=== PATIENT | female | born 1970 | race Caucasian/White ===

== ENCOUNTER 2017-04-18 03:53 | Emergency (ER) | payer MEDICARE, OTHER ==
[~2017-04-18] VITALS: Ht 162.6 cm; Wt 110.2 kg
[~2017-04-18 03:53] MED LIST: ALPRAZOLAM1 MG PO; AMBIEN10 MG PO; AMPICILLIN SOD500 MG PO; ATIVAN1 MG; ATIVAN1 MG PO; AZITHROMYCIN250 MG PO; BACTRIM DS TAB1 EACH; CIPRO500 MG PO; CITALOPRAM HBR20 MG PO; CITALOPRAM HBR40 MG PO; CYMBALTA30 MG PO; DETROL LA4 MG PO; DIFLUCAN200 MG PO; DILAUDID2 MG PO; DILAUDID4 MG PO; DOXYCYCLINE HY100 MG PO; DSS100 MG PO; ESTRACE1 MG PO; ESTROVEN 155 M155 MG PO; FENTANYL1 EAC2 TD; FLAGYL500 MG PO; FLUCONAZOLE100 MG PO; GABAPENTIN300 MG PO; GUAIFENESIN-CO118 ML PO; HAIR SKIN NAIL1 EACH PO; IRON236 MG PO; KEFLEX500 MG PO; LAXATIVE5 M1 PO; LEVAQUIN500 MG PO; LEVOTHROID25 MCG PO; LEVOTHYROXINE25 MCG PO; LOMOTIL TABLET1 EACH PO; MACROBID 100 M100 MG PO; METOCLOPRAMIDE10 MG PO; MIRALAX17 GM PO; MORPHINE PO; MUPIROCIN22 GM TOP; NEURONTIN300 MG PO; NORCO 10-325 T1 EACH PO; NYQUIL D COLD295 ML PO; ONDANSETRON ODT8 MG PO; OPIUM10 MG/1 ML; OPIUM10 MG/1 ML PO; OXYCODONE HCL10 MG PO; OXYCODONE HCL5 MG PO; OXYCONTIN10 MG; OXYCONTIN40 MG PO; PERCOCET 10-321 EACH PO; PERCOCET 5-3251 EACH PO; PERCOCET 7.5-31 EACH PO; PREMARIN0.3 MG PO; PREMARIN0.625 MG PO; PREMARIN0.9 MG PO; PROCHLORPERAZIN10 MG PO; PROMETHAZINE HC25 M1 PO; PYRIDIUM200 MG PO; SENNA PLUS TAB1 EACH PO; SILVADENE20 GM TP; STOOL SOFTENER100 M1 PO; SULFAMETHOXAZO473 ML PO; TRANSDERM-SCOP1 EA TD; TRAZODONE HCL100 MG PO; VITAMIN B COMP1 EACH PO; VITAMIN D32000 UNI1 PO; VITAMIN D35000 UNI1 PO; VITAMIN D5000 UNIT PO; WELLBUTRIN SR100 MG PO; XANAX1 MG PO; ZOFRAN ODT4 MG PO; ZOFRAN ODT8 MG PO; ZOFRAN4 MG PO; ZOFRAN8 MG PO; ZOLPIDEM TARTRA10 MG PO
== END 2017-04-18 04:50 | disposition home or self-care (01) ==
LOC: ED 03:53
DX: T40.2X2A Poisoning by other opioids, intentional self-harm, initial encounter (principal); T42.4X2A Poisoning by benzodiazepines, intentional self-harm, initial encounter; E03.9 Hypothyroidism, unspecified; F32.9 Major depressive disorder, single episode, unspecified; Z90.710 Acquired absence of both cervix and uterus; Z88.2 Allergy status to sulfonamides; Z88.8 Allergy status to other drugs, medicaments and biological substances; Z88.5 Allergy status to narcotic agent; Z88.0 Allergy status to penicillin; Z79.899 Other long term (current) drug therapy; Z79.891 Long term (current) use of opiate analgesic
CPT/HCPCS: 99283

== ENCOUNTER 2017-05-16 12:09 | Inpatient (IN) | payer MEDICARE, OTHER ==
[~2017-05-16] VITALS: Ht 162.6 cm; Wt 109.9 kg
--- NOTE | 2017-05-16 18:56 | NUR ---
PT RECEIVED FROM ED. PT TRANSFERED TO BED. PT RATING PAIN 10/10, GIVEN 0.5 MG IV DILAUDID. PT ON ROOM AIR, O2 SATS 96%. AT BEDSIDE.
--- NOTE | 2017-05-16 19:15 | NUR ---
RECIEVED REPORT FROM DAY SHIFT NURSE. PT RESTING IN BED. REQUESTING TO SPEAK WITH MD FOR MORE PAIN MEDICATION. CALL ANDERSON IN REACH.
--- NOTE | 2017-05-16 20:16 | NUR ---
PT TEARFUL. RESTING IN BED. STATES SHE NEEDS HER XANAX. MEDICATED WITH 0.5MG DILAUDID FOR CHEST/BACK PAIN. PT REFUSED OXYCONTIN, STATES IT KEEPS HER UP ALL NIGHT. CALL ANDERSON IN REACH.
--- NOTE | 2017-05-16 22:26 | NUR ---
PT UP TO BATHROOM WITH . PT RREQUESTING FOR PAIN MEDICATION. RT REPORTED TO ME THAT SHE WAS REQUESTING MORE PAIN MEDICATION. SPOKE WITH MD ABOUT PAIN MEDICATION BEFORE HE LEFT THE BUILDING. HE WILL NOT GIVE MORE THAN 1MG OF DILAUDID PER HOUR. I TOLD HER HE IS NOT WILLING TO GIVE HER MORE PAIN MEDICATION. PT APPEARED TO BE OKAY WITH MY ANSWER.
--- NOTE | 2017-05-17 00:30 | NUR ---
PT'S OUT IN [facility] STATES HIS RANG AN HOUR AGO FOR PAIN MEDICATION AND NO ONE CAME. I TOLD HIM NO ONE TOLD ME AND IF THAT HAPPENS AGAIN TO RING THE CALL ANDERSON AGAIN. HE STATES HE DID NOT RING IT AGAIN BECAUSE SHE "DOZED OFF." PT C/O PAIN 04/13 IN HER CHEST AND BACK. SHE STATES HER CHEST PAIN IS WORSE WHEN SHE BREATHES IN. ADMINISTERED PAIN MEDICATION. PT DENIES FURTHER NEEDS. REMINDED PT TO USE HER CALL LIGHT AGAIN IF SHE RINGS AND NO ONE ANSWERS.
--- NOTE | 2017-05-17 02:04 | NUR ---
PT C/O PAIN IN HER BACK AND CHEST THAT HAS NOT CHANGED. SHE IS SMILING AND LAUGHING TELLING ME STORIES WITH HER . APPEARS TO BE IN NO APPARANT DISTRESS. VS STABLE. BOX LUNCH DELIVERED.
--- NOTE | 2017-05-17 04:45 | NUR ---
PT SLEEPING. SPOUSE AT BEDSIDE. CALL ANDERSON IN REACH.
--- NOTE | 2017-05-17 05:55 | NUR ---
ASSISTED PT TO BATHROOM. PT VOIDED. BACK TO BED. RATES PAIN 8/10 IN HER BACK AND CHEST AREA. DILAUDID ADMINISTERED. PT WOULD LIKE TO SPEAK WITH DR. QUINONES THIS MORNING ABOUT POTENTIAL D/C TODAY. SHE IS ANXIOUS TO GO HOME TO SEE HER FAMILY. PT DENIES FURTHER NEEDS. IVF INFUSING W/O DIFFICULTY. SENIOR POLICY ADVISOR IN OBTAINING VS. SPOUSE IN ROOM. CALL ANDERSON IN REACH.
--- NOTE | 2017-05-17 08:55 | NUR ---
PT IS RESTING IN BED SAFELY WITH CALL LIGHT IN REACH. PT DID NOT NEED ANYHTING AT THE MOMENT
--- NOTE | 2017-05-17 09:00 | NUR ---
PT AWAKE IN BED. REQUESTING PAIN MEDICATION. MEDICATED WITH SCHEDULED OXY AND IV DILAUDID. PT EASILY TEARFUL. FALLS ASLEEP EASILY. RATES CHRONIC PAIN 8/10, GENERALIZED. AT BEDSIDE. CALL LIGHT WITHIN REACH. IMPLANTED PORT ACCESSED AND INFUSING FLUIDS WNL. FLUSHED WELL WITH MED ADMINISTRATION.
--- NOTE | 2017-05-17 09:57 | NUR ---
PT IS SITTING UP IN BED WORKING ON HER BREAKFAST. CALL IGHT IN REACH AND IN ROOM. PT DID NOT NEED ANYHTING AT THE MOMENT
[2017-05-17] MEDS ORDERED: LEVOFLOXACIN500 MG PO (12:10)
--- NOTE | 2017-05-17 12:58 | NUR ---
CALLED IN LEVOFLOXACIN PRESCRIPTION TO [facility] SINCE [facility] IS NOW CLOSED ON THE WEEKENDS.
--- NOTE | 2017-05-17 13:44 | NUR ---
PT IS RESTING IN BED WITH CALL LIGHT IN REACH AND IN ROOM. PT ASKED FOR PAIN MEDS, NURSE AWARE.
--- NOTE | 2017-05-17 14:50 | NUR ---
PORT HEP FLUSHED AND DEACCESSED. DC INSTRUCTIONS GIVEN. DRESSED INDEPENDENTLY.
--- NOTE | 2017-05-17 20:50 | EKG ---
[facility] [address] [place], [place] [address] Signed Sinus rhythm with short NC Otherwise normal ECG Confirmed by YUKI QUINONES MD ([id number]) on 05/17/2017 8:50:03 PM Electronically Signed By: YUKI QUINONES MD 05/17/172049 PATIENT NAME: CELESTE MCCRAY Electrocardiogram DATE OF : 68 PHYSICIAN: YUKI QUINONES MD REPORT #: [id number] REPORT IS CONFIDENTIAL AND NOT TO BE RELEASED WITHOUT AUTHORIZATION
== END 2017-05-17 15:05 | disposition home or self-care (01) | DRG 194 ==
LOC: ED 12:09 → MS 17:53
PROVIDERS: ADMIT Internal Medicine
DX: J13 Pneumonia due to Streptococcus pneumoniae (principal); C18.9 Malignant neoplasm of colon, unspecified; R09.1 Pleurisy; G89.3 Neoplasm related pain (acute) (chronic)
CPT/HCPCS: 71010; 71250; 71260; 80053; 84484; 85025; 93005; 93010; 94668; J0696; J1170; J1650; J1956; J2060; J2405; J7120; Q9967

== ENCOUNTER 2017-07-22 14:41 | Emergency (ER) | payer MEDICARE, OTHER ==
[~2017-07-22] VITALS: Ht 162.6 cm; Wt 110.7 kg
[~2017-07-22 14:41] MED LIST changes: +LEVOFLOXACIN500 MG PO
[2017-07-22] MEDS ORDERED: DULOXETINE HCL30 MG PO (16:16)
[2017-07-22] MEDS ORDERED: OXYBUTYNIN CHLOR5 M1 PO (16:16)
[2017-07-22] MEDS ORDERED: OXYCODONE HCL20 M1 PO (16:17)
[2017-07-22] MEDS ORDERED: CEFDINIR300 MG PO (18:54)
[2017-07-22] MEDS ORDERED: OXYCODONE HCL10 MG PO (18:54)
[2017-07-22] MEDS ORDERED: ZOFRAN ODT4 MG PO (18:54)
== END 2017-07-22 19:25 | disposition home or self-care (01) ==
LOC: ED 14:41
DX: E86.0 Dehydration (principal); N39.0 Urinary tract infection, site not specified; R11.10 Vomiting, unspecified; Z85.038 Personal history of other malignant neoplasm of large intestine; Z85.43 Personal history of malignant neoplasm of ovary; Z85.830 Personal history of malignant neoplasm of bone
CPT/HCPCS: 81001; 87077; 87088; 87186; 96361; 96374; 96375; 99283; J1170; J2405; J2765; J7030

== ENCOUNTER 2017-07-24 17:53 | Emergency (ER) | payer MEDICARE, OTHER ==
[~2017-07-24] VITALS: Ht 162.6 cm; Wt 110.7 kg
[~2017-07-24 17:53] MED LIST changes: +CEFDINIR300 MG PO; +DULOXETINE HCL30 MG PO; +OXYBUTYNIN CHLOR5 M1 PO; +OXYCODONE HCL20 M1 PO
[2017-07-24] MEDS ORDERED: PHENERGAN50 MG PR (21:19)
[2017-07-24] MEDS ORDERED: PROMETHAZINE HC25 M1 PO (21:19)
== END 2017-07-24 22:19 | disposition home or self-care (01) ==
LOC: ED 17:53
DX: R10.9 Unspecified abdominal pain (principal); G89.29 Other chronic pain; R11.2 Nausea with vomiting, unspecified; C18.9 Malignant neoplasm of colon, unspecified; C79.60 Secondary malignant neoplasm of unspecified ovary; F32.9 Major depressive disorder, single episode, unspecified; Z90.710 Acquired absence of both cervix and uterus; Z90.49 Acquired absence of other specified parts of digestive tract; Z93.2 Ileostomy status; Z93.3 Colostomy status; Z96.0 Presence of urogenital implants; Z88.2 Allergy status to sulfonamides; Z88.0 Allergy status to penicillin; Z88.5 Allergy status to narcotic agent; Z88.8 Allergy status to other drugs, medicaments and biological substances; Z79.899 Other long term (current) drug therapy
CPT/HCPCS: 80053; 81001; 85025; 87077; 87088; 87186; 96361; 96374; 96375; 99283; J2405; J7030

== ENCOUNTER 2017-08-24 20:37 | Emergency (ER) | payer MEDICARE, OTHER ==
[~2017-08-24] VITALS: Ht 162.6 cm; Wt 102.1 kg
--- OUTSIDE RECORDS SUMMARY | ~2017-08-24 | XMS | Clinical Summary ---
Demographics + + + | Address | [address] | | | [place] [address] | + + + | Home Phone | | + + + | Preferred Language | Unknown | + + + | Marital Status | | + + + | Congregation Affiliation | Unknown | + + + | Race | White | + + + | Ethnic Group | Not or | + + + Author + + + | Author | [facility] | + + + | Organization | [facility] | + + + | Address | Unknown | + + + | Phone | Unavailable | + + + Support +------+ +---------+ + +-------+ | Name | Relationship | Address | Phone | +------+ +---------+ + +-------+ ECON | [address] | | [place] | [address] | +------+ +---------+ + +-------+ Care Team Providers + +------+-------+ | Care Store Sales Manager Name | Role | Phone | + +------+-------+ | Denny Noe DO | PP | tel | + +------+-------+ Source Comments VALENTINO is fully live on both EpicCare Ambulatory and EpicCare InPatient.[facility] Allergies + + + + + + | Active Allergy | Reactions | Severity | Noted | Comments | | | | | Date | | + + + + + + | Chlorhexidine | Rash | Low | 07/24/20 | | | | | | 15 | | + + + + + + | Levofloxacin | Hives | Medium | 07/24/20 | | | | | | 15 | | + + + + + + | Penicillins | Rash | | 07/24/20 | "since childhood | | | | | 15 | they always told me | | | | | | not to take it". | + + + + + + | Sulfamethoxazole-Tri | Hives | Medium | 07/24/20 | | | methoprim | | | 15 | | + + + + + + Current Medications + + +-------+---------+------+------+-------+ | Prescription | Sig. | Disp. | Refills | Star | End | Statu | | | | | | t | Date | s | | | | | | Date | | | + + +-------+---------+------+------+-------+ | zolpidem 10 mg | Take 10 mg by mouth | | 0 | 12/0 | | Activ | | oral tablet | once daily at | | | 2/20 | | e | | | bedtime as needed. | | | 15 | | | | | FOR SLEEP | | | | | | + + +-------+---------+------+------+-------+ | oxyCODONE, | | | 0 | 12/0 | | Activ | | immediate release, | | | | 2/20 | | e | | 10 mg oral tablet | | | | 15 | | | + + +-------+---------+------+------+-------+ | ondansetron ODT 8 | | | 0 | 12/0 | | Activ | | mg oral | | | | 2/20 | | e | | tablet,disintegratin | | | | 15 | | | | g | | | | | | | + + +-------+---------+------+------+-------+ | clindamycin 1 % | | | 0 | 11/0 | | Activ | | topical gel | | | | 4/20 | | e | | | | | | 15 | | | + + +-------+---------+------+------+-------+ | cholecalciferol, | Take by mouth. | | | | | Activ | | Vitamin D3, 2,000 | | | | | | e | | unit oral capsule | | | | | | | + + +-------+---------+------+------+-------+ | conjugated | Take 0.9 mg by mouth | | | | | Activ | | estrogens 0.3 mg | once daily. | | | | | e | | oral tablet | | | | | | | + + +-------+---------+------+------+-------+ | levothyroxine 25 | Take 1 tablet by | | | 01/ | | Activ | | mcg oral tablet | mouth once daily. | | | 2/20 | | e | | | | | | 14 | | | + + +-------+---------+------+------+-------+ | BISACODYL ORAL | Take by mouth. | | | | | Activ | | | | | | | | e | + + +-------+---------+------+------+-------+ | DEXTROMETHORPHAN | Take by mouth. | | | | | Activ | | POLISTIREX (DELSYM | | | | | | e | | 12 HOUR ORAL) | | | | | | | + + +-------+---------+------+------+-------+ Active Problems + + + | Problem | Noted Date | + + + | Secondary malignant neoplasm of right ovary (HCC) | 07/24/2015 | + + + | Peritoneal metastases (HCC) | 07/24/2015 | + + + | Ureteral obstruction | 07/24/2015 | + + + | Colon cancer (HCC) | 07/21/2015 | + + + Family History + + +------+ + | Medical History | Relation | Name | Comments | + + +------+ + | Non-contributory | Father | | | + + +------+ + | Non-contributory | Mother | | | + + +------+ + + +------+--------+ + | Relation | Name | Status | Comments | + +------+--------+ + | Father | | | | + +------+--------+ + | Mother | | | | + +------+--------+ + Social History + +-------+ +--------+------+ | [...] on file | | + + + Last Filed Vital Signs + + + + | Vital Sign | Reading | Time Taken | + + + + | Blood Pressure | 131/67 | 07/24/2015 10:44 AM PST | + + + + | Pulse | 93 | 07/24/2015 10:44 AM PST | + + + + | Temperature | 36.5 C (97.7 F) | 07/24/2015 10:44 AM PST | + + + + | Respiratory Rate | 16 | 07/24/2015 10:44 AM PST | + + + + | Oxygen Saturation | 97% | 07/24/2015 10:44 AM PST | + + + + | Inhaled Oxygen | - | - | | Concentration | | | + + + + | Weight | 110.2 kg (243 lb) | 07/24/2015 10:44 AM PST | + + + + | Height | 160.7 cm (5' 3.25") | 07/24/2015 10:44 AM PST | + + + + | Body Mass Index | 42.71 | 07/24/2015 10:44 AM PST | + + + + Plan of Treatment + + + + + | Health Maintenance | Due Date | Last Done | Comments | + + + + + | INFLUENZA VACCINE | | | | | (FLU SHOT) | 7 | | | + + + + + Results Not on filefrom Last 3 Months
--- OUTSIDE RECORDS SUMMARY | ~2017-08-24 | XMS | Clinical Summary ---
Demographics + + + | Address | [address] | | | [place] [address] | + + + | Home Phone | | + + + | Preferred Language | Unknown | + + + | Marital Status | | + + + | Latter-Day Affiliation | Unknown | + + + | Race | White | + + + | Ethnic Group | Not or | + + + Author + + + | Author | [facility] | + + + | Organization | [facility] | + + + | Address | Unknown | + + + | Phone | Unavailable | + + + Support +------+ +---------+ + +-------+ | Name | Relationship | Address | Phone | +------+ +---------+ + +-------+ ECON | [address] | | [place] | [phone] | +------+ +---------+ + +-------+ Care Team Providers + +------+-------+ | Care Cardiac Nurse Name | Role | Phone | + +------+-------+ | Denny Noe DO | PP | tel | + +------+-------+ Source Comments VALENTINO is fully live on both EpicCare Ambulatory and EpicCare InPatient.[facility] Allergies + + + + + [...]
[~2017-08-24 20:37] MED LIST changes: +PHENERGAN50 MG PR
[2017-11-12] MEDS ORDERED: DILAUDID 44 MG/1 M1 (15:15)
[2017-12-05] MEDS ORDERED: OXYCODONE HCL20 M1 PO (13:08)
[2017-12-05] MEDS ORDERED: LORAZEPAM2 MG/1 M2 PO (13:09)
[2017-12-05] MEDS ORDERED: REGLAN5 MG PO (15:11)
[2017-12-05] MEDS ORDERED: TUSSIN100 MG/5 M PO (15:12)
[2018-01-02] MEDS ORDERED: MIRALAX17 GM PO (14:28)
== END 2017-08-24 22:00 | disposition left against medical advice (07) ==
LOC: ED 20:37
DX: Z53.21 Procedure and treatment not carried out due to patient leaving prior to being seen by health care provider (principal)

== ENCOUNTER 2017-12-08 08:04 | Emergency (ER) | payer MEDICARE, OTHER ==
[~2017-12-08] VITALS: Ht 162.6 cm; Wt 105.1 kg
[~2017-12-08 08:04] MED LIST changes: +DILAUDID 44 MG/1 M1; +LORAZEPAM2 MG/1 M2 PO; +REGLAN5 MG PO; +TUSSIN100 MG/5 M PO
--- NOTE | 2017-12-08 13:50 | EKG ---
[facility] [address] [place], [place] [address] Signed Sinus rhythm with short IA interval Abnormal ECG When compared with ECG of 16-MAY-2017 12:24, No significant change was found Confirmed by YUKI QUINONES MD ([id number]) on 12/08/2017 1:49:50 PM Electronically Signed By: YUKI QUINONES MD 12/08/17 1350 PATIENT NAME: NAVDEEP MCCRAYTYREE GARCIA Electrocardiogram DATE OF : 68 PHYSICIAN: YUKI QUINONES MD REPORT #: [id number] REPORT IS CONFIDENTIAL AND NOT TO BE RELEASED WITHOUT AUTHORIZATION
[2017-12-08] MEDS ORDERED: ONDANSETRON ODT4 MG SL (14:01)
[2017-12-08] MEDS ORDERED: NAPROXEN500 MG PO (14:01)
[2017-12-08] MEDS ORDERED: MACRODANTIN100 MG PO (14:01)
[2017-12-08] MEDS ORDERED: COMPRO25 MG PR (14:01)
[2018-01-02] MEDS ORDERED: MIRALAX17 GM PO (14:28)
== END 2017-12-08 14:37 | disposition home or self-care (01) ==
LOC: ED 08:04
PROC: 0T9B70Z Drainage of Bladder with Drainage Device, Via Natural or Artificial Opening (ICD-10-PCS; principal; 2017-12-08)
DX: R07.89 Other chest pain (principal); N39.0 Urinary tract infection, site not specified; R82.71 Bacteriuria; G89.29 Other chronic pain; C18.9 Malignant neoplasm of colon, unspecified; C79.60 Secondary malignant neoplasm of unspecified ovary; F32.9 Major depressive disorder, single episode, unspecified; Z88.2 Allergy status to sulfonamides; Z88.8 Allergy status to other drugs, medicaments and biological substances; Z88.0 Allergy status to penicillin; Z88.5 Allergy status to narcotic agent; Z79.899 Other long term (current) drug therapy
CPT/HCPCS: 51701; 71045; 80053; 81001; 85025; 87077; 87088; 87186; 93005; 93010; 96361; 96374; 96375; 96376; 99283; J0780; J1200; J7120

== ENCOUNTER 2017-12-23 14:14 | Inpatient (IN) | payer MEDICARE, OTHER ==
[~2017-12-23] VITALS: Ht 162.6 cm; Wt 94.1 kg
[~2017-12-23 14:14] MED LIST changes: +COMPRO25 MG PR; +MACRODANTIN100 MG PO; +NAPROXEN500 MG PO; +ONDANSETRON ODT4 MG SL
--- NOTE | 2017-12-23 20:15 | NUR ---
PATIENT ARRIVED TO THE FLOOR. PATIENT WAS A PIVOT TRANSFER TO [facility] BED. PATIENT GIVEN PRN PAIN MEDICATION AND NAUSEA MEDICATION. PATIENT IS VERY ANXIOUS AND PAINFUL. PATIENT STATED "I HAVE A TERMINAL DIAGNOSIS". PATIENT DENIES ANY FURTHER NEEDS. ORIENTED TO UNIT, FLOOR, AND ROOM. CALL LIGHT IN REACH. BED ALARM ON FOR SAFETY.
--- NOTE | 2017-12-23 21:25 | NUR ---
DR. PARTIDA IN THE ROOM. NEW ORDERS GIVEN. PRN PAIN MEDICATION GIVEN PER ORDER. PATIENT DENIES ANY NAUSEA. PATIENTS ATTEND CHANGED. INCONTINENT UNABLE TO CONTROL OUPUT. NO FURTHER NEEDS. CALL LIGHT IN REACH. QA MANAGER NOTIFIED OF MEDICINE ISSUE.
--- NOTE | 2017-12-23 22:29 | NUR ---
PATIENTS EVENING MEDICATIONS GIVEN PER ORDER. PATIENT GIVEN PRN ATIVAN AND PRN PAIN MEDICATION. PER ORDER. PATIENTS FAMILY IS IN THE ROOM. NO FURTHER NEEDS NOTED. CALL LIGHT IN REACH.
--- NOTE | 2017-12-23 22:50 | NUR ---
PATIENT GIVEN PRN PAIN MEDICATON FOR PAIN IN HER ABD THAT IS 10/10. PATIENT DENIES ANY NAUSEA AT THIS TIME. PATIENTS FAMILY REMAINS IN THE RROM WITH HER AT THIS TIME. CALL LIGHT IN REACH.
--- NOTE | 2017-12-24 01:05 | NUR ---
PATIENTS SAMPLE BUILDER HOOKED UP PER ORDER. PATIENT EDUCATED ON THE USE OF THE SAMPLE BUILDER FOR PAIN MANAGEMENT. PATIENT VERBALIZES UNDERSTANDING. PATIENT STATED "I HAVE HAD A PAIN THING MANY TIMES". PATIENT DENIES ANY NAUSEA. PATIENT DENIES ANY FURTHER NEEDS CALL LIGHT IN REACH. SAMPLE BUILDER BUTTON IN REACH.
--- NOTE | 2017-12-24 03:52 | NUR ---
PATIENT COMPLAINS OF NAUSEA. PATIENT GIVEN PRN NAUSEA PER ORDER. PATIENT DENIES ANY FURTHER NEEDS. CALL LIGHT IN REACH. INDUSTRIAL RELATIONS ANALYST BUTTON IN REACH. NO FURTHER NEEDS NOTED.
--- NOTE | 2017-12-24 04:59 | NUR ---
PATIENT HAS NOT RESTED SINCE ARRIVAL. PATIENT IS NPO BUT MAY HAVE ICE CHIPS, HARD CANDY, OR GUM FOR COMFORT. PATEINT IS A SBA AND IS VERY PAINFUL WITH MOVEMENT. PATIENT HAS RIGHT PORT ACCESSED. PATIENT RECEIVE PRN NAUSEA MEDICATION X2. PATIENT HAS A AUXILIARY POWERPLANT OPERATOR FOR PAIN. PATIENT IS AAOX3. PATIENT REFUSED SCDS.
--- NOTE | 2017-12-24 05:29 | NUR ---
PATIENT IS RESTING IN BED WATCHING TV. PATIENT CONTINUE STO USE THE MAX DOSE OF THE WELDER METAL FAB. PATIENT DENIES ANY NAUSEA. NO NEEDS NOTED. CALL LIGHT IN REACH.
--- NOTE | 2017-12-24 05:51 | NUR ---
PATIENT GIVEN PRN ANXIETY MEDICATION PER ORDER PER PATIENT REQUEST. PATIENT DENIES ANY NAUSEA. PATIENT CONTINUES TO USE THE MAX DOSE OF SYSTEM SUPPORT SPECIALIST. NO FURTHER NEEDS NOTED. ELL TUTOR IN THE ROOM CHECKING VITALS.
--- NOTE | 2017-12-24 06:16 | NUR ---
PATIENT DIGITAL PRODUCT SPECIALIST CARTRIDGE REPLACED. PATIENT CONTINUES TO RATE PAIN AT A 10/10. PATIENT IS RESTING IN BED SCROLLING ON HER PHONE. PATIENT DENIES ANY NEEDS. CALL LIGHT IN REACH. ICE CHIPS REFILLED.
--- NOTE | 2017-12-24 08:09 | CONS ---
[facility] [address] [place], [place] [address] Signed DATE OF CONSULTATION: 12/23/2017 REFERRING PHYSICIAN: Dr. Joey Love. CHIEF COMPLAINT: Vomiting. HISTORY OF PRESENT ILLNESS: Jessica is a 47-year-old female with stage IV colon cancer who has been through chemotherapy for four years. She is now terminal, not a candidate for additional chemotherapy. She has been living with her , but was having quite a bit of vomiting the last few days, so she came to emergency room for evaluation. She has been given some IV fluids, and I was asked to admit her as a general surgeon on-call. PAST MEDICAL HISTORY: Colon cancer 2013, hypothyroidism, depression, bacterial meningitis 2002, and ovarian cancer. PAST SURGICAL HISTORY: Includes a left colectomy with a small-bowel resection, hysterectomy followed later by bilateral salpingo-oophorectomy, ureteral stents, ileostomy, hernia repair in 2013, and nephrostomy tubes. SOCIAL HISTORY: She does not smoke or drink. She is to her [facility] at #[phone]. Her medical oncologist is Dr. Homa Valerio. Her primary care provider is Dr. Jonathon Noe. Dr. Wali Rodriguez is her urologist, and [facility]. FAMILY HISTORY: Not reviewed. REVIEW OF SYSTEMS: She had 10 systems reviewed. She was talking to me about her end-stage disease, but no other major issues brought up. ALLERGIES: Penicillin, sulfa, morphine, Bactrim, chlorhexidine, and oxaliplatin. MEDICATIONS: 1. Zofran. 2. Phenergan. Electronically Signed By: SCARLETT PARTIDA MD 12/24/17 0809 PATIENT NAME: JESSICA MCCRAY CONSULTATION DATE OF : 68 REPORT #: [id number] PHYSICIAN: SCARLETT PARTIDA MD PCP: HOMA VALERIO MD REPORT IS CONFIDENTIAL AND NOT TO BE RELEASED WITHOUT AUTHORIZATION [facility] [address] [place], [place] [address] Signed 3. Naproxen. 4. Prochlorperazine. 5. Nitrofurantoin. 6. Ambien. 7. Premarin. 8. Polyethylene glycol. 9. Oxybutynin. 10. Oxycodone. 11. Reglan. 12. Guaifenesin. PHYSICAL EXAMINATION: VITAL SIGNS: Blood pressure 141/83, heart rate 120, respiratory rate 18, temperature is 98.7, she is 100% on room air. She is 5 feet 4 inches at 94 kg. GENERAL: On exam Jessica is a 47-year-old female lying supine in her hospital bed. She still has fairly good muscle mass. LUNGS: Generally clear to auscultation, but somewhat decreased at the bases. HEART: The heart rate is currently regular rate and rhythm. ABDOMEN: Soft, but diffusely tender. LABORATORY DATA: Her white blood count is 5.3, hemoglobin 11, platelets 238, potassium 3.4, BUN 19, creatinine 1.3. Liver function tests negative. Albumin 3.4. RADIOGRAPHIC STUDIES: CT scan of abdomen and pelvis. She has bilateral lower lobe metastatic nodule. She has multiple metastatic lesions in the liver. She has a large lesion near the spleen and the spleen is a little swollen. She has a right ureteral stent. She has air-fluid level in the stomach, but the duodenum and proximal jejunum is dilated with fluid and then in the mesentery and proximal jejunum there was a large metastasis and it looks like it is causing obstruction since small bowel past that seems to be decompressed. She has multiple lymph nodes. ASSESSMENT AND PLAN: Jessica is a 47-year-old female with stage IV colon cancer what looks like a proximal small-bowel obstruction, nausea, vomiting, dehydration, and hypokalemia. We are going to admit her, give her some IV fluids and pain control. We will have our case Management talk with her in the morning. We will also have our Internal Medicine Service see her as well. She has expressed understanding and agrees to the above plan. Scarlett Partida MD Electronically Signed By: SCARLETT PARTIDA MD 12/24/17 0809 PATIENT NAME: JESSICA MCCRAY CONSULTATION DATE OF : 68 REPORT #: [id number] PHYSICIAN: SCARLETT PARTIDA MD PCP: HOMA VALERIO MD REPORT IS CONFIDENTIAL AND NOT TO BE RELEASED WITHOUT AUTHORIZATION [facility] [address] [place], [place] [address] Signed ALB/MODL /[id number] cc: MD Jonathon Mendoza, MD Wali Olsen Copies: SCARLETT PARTIDA MD,JONATHON MAY,HOMA RODRIGUEZ,WALI Coronel Electronically Signed By: SCARLETT PARTIDA MD 12/24/17 0809 PATIENT NAME: JESSICA MCCRAY CONSULTATION DATE OF : 68 REPORT #: [id number] PHYSICIAN: SCARLETT PARTIDA MD PCP: HOMA VALERIO MD REPORT IS CONFIDENTIAL AND NOT TO BE RELEASED WITHOUT AUTHORIZATION
--- NOTE | 2017-12-24 09:30 | NUR ---
CALLED [facility] AND THEY STATE THEY ARE NOT SET UP FOR HOSPICE YET IN THIS AREA, THEREFORE NOT AVAILABLE. CALLED [facility], THEY STATE THEY DO NOT HAVE ENOUGH STAFF TO BE COVERING THIS AREA FOR HOSPICE.
--- NOTE | 2017-12-24 09:30 | NUR ---
PT AWAKE IN BED TALKING WITH CASTILLO TILLEY INSOLE COVERER. REPORTS CHRONIC PAIN, USING FENTANYL LOG CUT OFF SAWYER APPROPRIATELY. PT ANSWERS ORIENTATION QUESTIONS APPROPRIATELY BUT TRAIN OF THOUGHT JUMPS FROM THOUGHT TO THOUGHT SPORADICALLY. RIGHT PORTACATH ACCESSED AND INFUSING WITHOUT DIFFICULTY, GOOD BLOOD RETURN, DRESSING CDI. PT REPORTS INCONTINENCE OF URINE WHICH IS NOT HER BASELINE, ATTENDS ON. PT ANXIOUS AND EASILY TEARFUL. CALL LIGHT WITHIN REACH.
--- NOTE | 2017-12-24 10:41 | NUR ---
CARE CONFERENCE ATTENDEES: PATIENT, LAMINE, SON THOMAS STAFF: DR REED, MYSELF CASE MANAGEMENT DR REED DISCUSSED WITH FAMILY HOW IT IS GETTING MORE DIFFICULT FOR [facility] TO MANAGE AND HER TUMOR IS CAUSING THE BOWEL TO OBSTRUCT AND SHE IS HAVING WORSENING PAIN, STATES SHE HAS BEEN VOMITING FOR 4 DAYS AND UNABLE TO EAT. DISCUSSED HOW HOSPICE WON'T TAKE HER BACK AND THEY DON'T WANT DR ANGLIN OR DR STEEN TO BE INVOLVED IN HER CARE. SO THERE IS LITTLE THAT WE CAN DO OTHER THAN IVF AND PAIN MEDS. DR REED EXPLAINED THAT SHE IS NOT BEING ABLE TO USE THE ORAL PAIN MEDS THEY ARE NOT STAYING DOWN. LAMINE SUGGESTED THAT THEY GO TALK WITH DR WARE AND SEE IF HE WOULD BE WILLING TO ALLOW THEM TO GIVE HER PAIN MEDS THROUGH HER IV PORT LIKE THEY HAVE DONE IN THE PAST. PT ALSO WANTS TO RETURN HOME SOON SHE CAN. DR PARTIDA HAS NOT BEEN IN TO TALK WITH HER TODAY YET AND HE WILL BE MAKING THE DECISIONS FOR THIS.
--- NOTE | 2017-12-24 11:05 | NUR ---
TALKED WITH JENNIFER FROM HOSPICE SHE EXPLAINED THE CONCERNS THAT SHE AND HOSPICE HAVE WITH [facility]-FOR NOT FOLLOWING THE RULES THAT WERE SET UP BY HOSPICE AND THE PRECISION AGRICULTURE SPECIALIST PT HAD VIOLATED RULES ON A PREVIOUS ADMISSION I WAS TOLD. WAS INFORMED THAT IF THE PT WERE INDEED AT END OF LIFE, BED BOUND AND NEEDING IT THEY MAY BE WILLING TO DO THIS BUT OF NOW, THIS PT HAS NOT ACCORDING TO HOSPICE BEEN TRUTHFUL (I AM GOING BY WHAT LANDSCAPE MAINTENANCE INTERNSHIP TOLD ME) NOT ONCE BUT TWICE. FURTHER INFORMATION CAN BE OBTAINED TALKING WITH THE HOSPICE STAFF.
--- NOTE | 2017-12-24 11:12 | NUR ---
PATIENT UP TO BSC WITH STAND BY ASSIST. BED BATH COMPLETE. CLEAN LINENS AND ORAL CARE DONE. PATIENT BACK TO BED WITH CALL BUTTON IN REACH BED ALARM ON. PATIENT'S FAMILY IN ROOM. NO OTHER NEEDS AT THIS TIME.
--- NOTE | 2017-12-24 12:15 | NUR ---
PT IN BED SLEEPING, RESP EVEN AND UNLABORED. SON AND AT BEDSIDE.
--- NOTE | 2017-12-24 13:45 | NUR ---
PATIENT UP TO BSC WITH STAND BY ASSIST.
--- NOTE | 2017-12-24 13:52 | NUR ---
YOKASTA NAVARRO AND TRANSPORTED VIA WHEELCHAIR TO IMAGING FOR X-RAY.
--- NOTE | 2017-12-24 14:15 | NUR ---
PT RETURNED FROM IMAGING. TRANSFERRED INDEPENDENTLY BACK TO BED FROM WHEELCHAIR. IVF AND APARTMENT LEASING SPECIALIST RESTARTED. CALL LIGHT WITHIN REACH.
[2017-12-24] MEDS ORDERED: LORAZEPAM2 MG PO (16:09)
[2017-12-24] MEDS ORDERED: CIPRO500 MG PO (16:12)
--- NOTE | 2017-12-24 16:25 | NUR ---
PT IN BED SLEEPING, EYES CLOSED, RESP EVEN AND UNLABORED. SON AT BEDSIDE.
--- NOTE | 2017-12-24 17:00 | NUR ---
PATIENT UP TO BSC WITH STAND BY ASSIST. PATIENT UPSET BECUASE SHE WANTS TO GO HOME AND SHE WANTS TO EAT. PATIENT WAS CALMED DOWN BY THIS INVESTIGATIVE AGENT. IN ROOM TO SPEAK TO PATIENT.
[2017-12-24] MEDS ORDERED: SENNA-S TABLET1 EACH PO (17:28)
--- NOTE | 2017-12-24 17:30 | NUR ---
MED REC COMPLETE
--- NOTE | 2017-12-24 17:50 | NUR ---
PT GIVEN VERBAL AND WRITTEN DC INSTRUCTIONS. PT DRESSED WITH ASSISTANCE. TU CATH HEP LOCKED AND DEACCESSED, INSERTION SITE WITHOUT REDNESS OR INFLAMMATION.
--- NOTE | 2017-12-25 08:19 | DS ---
[facility] [address], [place] [address] Signed ADMISSION DATE: 12/23/2017 DISCHARGE DATE: 12/24/2017 FINAL DIAGNOSIS: Stage IV colon cancer. PROCEDURES: CT scan of abdomen and pelvis. HISTORY OF PRESENT ILLNESS: Jessica is a 47-year-old female who was diagnosed with colon cancer back in 2013. It has now progressed to stage IV colon cancer. Apparently, she is not a candidate for any additional chemotherapy or surgery. It sounds like she went through a left colectomy with a small bowel resection at that time. She came in our emergency room with some nausea, vomiting, dehydration. There was concern about a large amount of tumor in her mesentery near the proximal jejunum that may be causing obstruction. I was asked to admit her as a general surgeon on-call. HOSPITAL COURSE: Jessica was admitted as above and given IV fluids. She declined an NG tube. We did have our Internal Medicine Service see Jessica as well. Apparently, she is feeling much better, and passing quite a bit of gas. She has been very manipulative here in the hospital wanting to dictate therapy, and so forth. There was some questions of her behavior while she was on hospice, and so she is not a candidate for hospice unless she is in a facility where the distribution of her medication can be controlled. Her had gone down to see their oncologist today, Dr. Homa Valerio. Apparently, there was some discussion about liquid pain medications. Nevertheless, Jessica is insisting she wants to go home. She told me she is not going to go to any facility, and she wants to at her own house. Consequently, we are not doing anything additional for her here. We are going to be discharging her home shortly. DISCHARGE PLANS AND MEDICATIONS: Jessica is going to be discharged to home with no new prescriptions. If she wants liquid pain medication, she can obtain that tomorrow morning through her medical oncologist. She told me her has already made an appointment for her to follow up with her oncologist. I told Jessica she is probably mahan to stay with more liquid or full liquid diet at least for a day or two, and she probably will never get all the way back to stay, but we should be able to keep herself with some hydration and some nutrition. At this point she has expressed understanding, and would like to proceed as above. Electronically Signed By: SCARLETT PARTIDA MD 12/25/17 0819 PATIENT NAME: JESSICA MCCRAY DISCHARGE SUMMARY DATE OF : 68 REPORT #: [id number] PHYSICIAN: SCARLETT PARTIDA MD PCP: HOMA VALERIO MD REPORT IS CONFIDENTIAL AND NOT TO BE RELEASED WITHOUT AUTHORIZATION [address] [address] Signed Scarlett Partida MD ALB/SUZYL /[id number] cc: MD Jonathon Mendoza DO Robert C Quackenbush, MD Copies: SCARLETT PARTIDA MD, FRANK E DO QUACKENBUSH, ROBERT C MD ~ Electronically Signed By: SCARLETT PARTIDA MD 12/25/17 0819 PATIENT NAME: JESSICA MCCRAY DISCHARGE SUMMARY DATE OF : 68 REPORT #: [id number] PHYSICIAN: SCARLETT PARTIDA MD PCP: HOMA VALERIO MD REPORT IS CONFIDENTIAL AND NOT TO BE RELEASED WITHOUT AUTHORIZATION
[2018-01-02] MEDS ORDERED: MIRALAX17 GM PO (14:28)
== END 2017-12-24 18:00 | disposition home or self-care (01) | DRG 375 ==
LOC: ED 14:14 → MS 18:59
PROVIDERS: ADMIT Colon & Rectal Surgery
DX: C18.9 Malignant neoplasm of colon, unspecified (principal); C78.7 Secondary malignant neoplasm of liver and intrahepatic bile duct; E86.0 Dehydration; E03.9 Hypothyroidism, unspecified; F32.9 Major depressive disorder, single episode, unspecified; E87.6 Hypokalemia; Z85.43 Personal history of malignant neoplasm of ovary; Z86.61 Personal history of infections of the central nervous system; Z79.2 Long term (current) use of antibiotics; Z79.1 Long term (current) use of non-steroidal anti-inflammatories (NSAID); Z79.890 Hormone replacement therapy; Z79.891 Long term (current) use of opiate analgesic; Z79.899 Other long term (current) drug therapy; Z88.5 Allergy status to narcotic agent; Z88.0 Allergy status to penicillin; Z88.2 Allergy status to sulfonamides; Z88.8 Allergy status to other drugs, medicaments and biological substances
CPT/HCPCS: 74018; 74022; 74177; 80053; 85025; J1644; J1956; J2060; J2405; J2550; J3010; J3480; J7120; Q9967

== ENCOUNTER 2018-01-05 00:24 | Emergency (ER) | payer MEDICARE, OTHER ==
[~2018-01-05] VITALS: Ht 162.6 cm; Wt 93.4 kg
[~2018-01-05 00:24] MED LIST changes: +LORAZEPAM2 MG PO; +SENNA-S TABLET1 EACH PO
== END 2018-01-05 01:21 | disposition home or self-care (01) ==
LOC: ED 00:24
DX: C18.9 Malignant neoplasm of colon, unspecified (principal); K56.609 Unspecified intestinal obstruction, unspecified as to partial versus complete obstruction; Z88.2 Allergy status to sulfonamides; Z88.0 Allergy status to penicillin; Z88.5 Allergy status to narcotic agent; Z88.8 Allergy status to other drugs, medicaments and biological substances; Z79.899 Other long term (current) drug therapy
CPT/HCPCS: 99282

== ENCOUNTER 2018-01-09 10:00 | Observation (INO) | payer MEDICARE, OTHER ==
[~2018-01-09] VITALS: Ht 162.6 cm; Wt 89.4 kg
--- NOTE | 2018-01-09 13:57 | NUR ---
01/09/18 1357 Traci Iverson 1346 PT ARRIVES TO PACU, RESPONSIVE TO VOICE, PT MAKING SOUNDS WITH NO WORDS. LR INFUSING INTO PORT TO RIGHT CHEST. PT ON ALL MONITORS. O2 AT 4L PER NC. BREATHING EVEN AND NON LABORED. 1357 DECREASED O2 TO 2L PER NC, SATS 97%. PT CONTINUES TO MAKE MOANING SOUNDS, BUT NO WORDS.
[2018-01-09] MEDS ORDERED: LORAZEPAM INT2 MG/ML PO (16:03)
--- NOTE | 2018-01-09 16:40 | NUR ---
MED REC COMPLETE
--- NOTE | 2018-01-09 17:17 | NUR ---
THE NURSE AND I BOOSETED PATIENT UP IN BED. GOT HER A HOT PACK AND PUT A DRAW SHEET UNDER LEFT SIDE. SHE IS WATCHING TV. IN HER BED EATING ICE CHIPS.
--- NOTE | 2018-01-09 18:08 | NUR ---
CALLED PROVIDER REGARDING FEVER OF 102.3, PROVIDER DEFERRED TO PT, IF SHE WANTS SUPPOSITORY OR NOT. GAVE PT IS AND ENCOURAGED PT TO USE IT. REPOSITIONED AND OFFERED ICE PACKS TO EASE FEVER.
--- NOTE | 2018-01-09 18:30 | NUR ---
PT HAS IMPROVED SYMPTOMS SINCE TRANSFER FROM THE PACU. PT HAS TOLERATED A SMALL AMOUNT OF ICE CHIPS, PT HAS COMPLAINED OF A SEVERE DRY MOUTH. PT HAS BEEN FEBRILE THIS SHIFT, REPORTED TO PROVIDER. CONTINUE TO ENCOURAGE IS AND MONTIOR FOR FEVERS. PT SHOULD BE ENCOURAGED TO AMBULATE IN THE AM, SOON SHE IS ABLE.
--- NOTE | 2018-01-09 19:30 | NUR ---
GOT REPORT FROM DAYSHIFT. PATIENT CURRENTLY SLEEPING, EYES CLOSED, RESPIRATIONS EVEN AND REGULAR.
--- NOTE | 2018-01-09 21:05 | NUR ---
PATIENT UP TO THE BEDSIDE COMMODE AND VOIDED 275 DARK YELLO URINE. ABD PAIN 9/10, PATIENT TEHN MOVED TO THE RECLINER TO SIT. 1MG IV DILAUDID GIVEN SIVP. PATIENT NOT HAVING ANY NAUSEA. LUNGS CLEAR BOWEL TONES HYPOACTIVE.
--- NOTE | 2018-01-09 22:46 | NUR ---
PATIENT TAKING IN PO CLEAR LIQUIDS NOW. HAS EATEN 2 JELLO CUPS, AND DRANK 240 MLS CRANBERRY JUICE WITH SODA. REMAINS SEATED IN RECLINER WATCHING TV WITH CALL LIGHT IN REACH.
--- NOTE | 2018-01-09 23:19 | NUR ---
PATIENT CURRENTLY RESTING QUIETLY IN THE RECLINER WITH HER FEET UP, EYES CLOSED, RESPIRATIONS EVEN AND REGULAR, CALL LIGHT IN REACH.
--- NOTE | 2018-01-10 00:40 | NUR ---
PATIENT UP TO THE BEDSIDE COMMODE AND VOIDED ONLY 30MLS. PATIENT THEN GOT BACK INTO BED PATIENT HAVING 8/10 ABD PAIN. 1MG IV DILUADID GIVEN. CALL LIGHT IN REACH.
--- NOTE | 2018-01-10 01:16 | NUR ---
PATIENT'S PAIN STILL REMAINS 8/10. PATIENT GIVEN TWO 10/325MG PERCOCET AND 2MG PO ATIVAN FOR ANXIETY. CALL LIGHT IN REACH.
--- NOTE | 2018-01-10 01:32 | NUR ---
PATIENT STILL HAVING 7/10 ABD PAIN AND 0.5MG IV DILAUDID GIVEN. CALL LIGHT IN REACH.
--- NOTE | 2018-01-10 03:28 | NUR ---
PATIENT SLEEPIER AND NAUSEA IS GONE AFTER GETTING 12.5MG IV PHENERGAN. ABD PAIN AT 8/10 AND GIVEN 1.5MG IV DILAUDID. PATIENT'S IS GOING HOME. PATIENT GOING TO TRY TO SLEEP. CALL LIGHT IN REACH.
--- NOTE | 2018-01-10 04:30 | NUR ---
PATIENT RESTING QUIETLY, EYES CLOSED, RESPIRATIONS EVEN AND REGULAR, NO SIGNS OF DISTRESS. CALL LIGHT IN REACH.
--- NOTE | 2018-01-10 06:40 | NUR ---
PATIENT UP TO THE BEDSIDE COMMODE X3 TONIGHT VOIDING SMALL AMOUNTS OF DARK KHUSHI URINE. D5LR STILL RUNNING AT 100MLS/HR IN PORT-A-CATH IN RIGHT PECTORAL AREA. PATIENT HAS HAD MULTIPLE DOSES OF IV DILAUDID TONIGHT FOR HER ABD PAIN, WHICH IS USUALLY AN 7-8/10 WHEN SHE WAKES UP, BUT A DOSE OF DILAUDID PUTS HER BACK TO SLEEP UNTIL SHE AWAKES HAVING PAIN AGAIN. PATIENT HAD 1 DOSE OF 12.5 MG IV PHENERGAN FOR NAUSEA WHICH WAS EFFECTIVE IN RELIEVING THE NAUSEA. PATIENT'S PEG TUBE CONTAINS GREENISH FLUID AND HAS REMAINED CLAMPED THROUGH THE SHIFT.
--- NOTE | 2018-01-10 08:29 | OR ---
[facility] [address], [place] [address] Signed DATE OF OPERATION: 01/09/2018 SURGEON: Scarlett Partida MD PREOPERATIVE DIAGNOSES: 1. Stage IV colon cancer. 2. Small bowel obstruction. POSTOPERATIVE DIAGNOSES: 1. Stage IV colon cancer. 2. Small bowel obstruction. PROCEDURE: Placement of 20-[place]izen [place] PEG tube. ESTIMATED BLOOD LOSS: None. INDICATIONS: Jessica is a 47-year-old female who was diagnosed and treated for colon cancer in 2013 while living in [place]. She ended up coming up to [place], [place]. She has established with her oncologist here. At this point, she is not a candidate for additional chemotherapy or surgery. She had been in the hospital a short time ago with some nausea and vomiting. 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 This may be the source of her obstruction. She was asked to see me by her oncologist for consideration of a PEG tube. Her and her son were with her and of course I have known them for several years. Jessica and I had a long discussion with her family and we decided the safest most conservative route for her at this time would be endoscopic placement of her PEG tube. Her son looked up PEG tubes on his phone while we were talking. We were able to show Jesisca pictures of the PEG tube and explained that to her. She understand she can use at the ventral stomach. She understands there is risk including, but not limited to bleeding, infection, scarring, change in contour of the skin as well as peritonitis requiring surgery. She had expressed understanding and wished to proceed. PROCEDURE NOTE: Jessica was taken into our endoscopy suite and placed in the supine semi-recumbent position. The posterior oropharynx was anesthetized with Hurricaine spray. A bite block was utilized for the case. Our nurse solar sales rep provided monitored anesthesia care with airway control and infusion of propofol. After this, we were able to pass the Electronically Signed By: SCARLETT PARTIDA MD 01/10/18 0829 PATIENT NAME: JESSICA MCCRAY OPERATIVE REPORT DATE OF : 68 REPORT #: [id number] PHYSICIAN: SCARLETT PARTIDA MD PCP: HOMA VALERIO MD REPORT IS CONFIDENTIAL AND NOT TO BE RELEASED WITHOUT AUTHORIZATION [facility] [address], [place] [address] Signed adult gastroscope down into the stomach and with digital compression of the abdominal wall, we were able to locate a spot in her left upper quadrant for placement of the PEG tube. She has some tumor burden over near the spleen, so we were trying to stay a little closer to the midline and on our initial attempt, we were unable to access the stomach, so we moved just a little bit more lateral. Repositioning the angle of our needle, we were able to then enter her stomach without difficulty. At that point, we were able to pass the wire in and we captured the wire with the snare and brought it out through her esophagus and oropharynx. We then passed our standard 20-[place]izen [place] PEG tube over the wire and we brought it down through the stomach and out through the abdominal wall and then all the way into the stomach. The wire was withdrawn and the adult gastroscope was reintroduced and we could see the PEG tube in place. We used the round bolster and brought that down over the tubing on the abdominal wall and the top of that abdominal bolster is just at 7 cm. We then cut the tubing to length, passed the clamp over that and placed the valve on the end of the tubing. We opened the tubing and allowed the air to escape her stomach and after this, the gastroscope was withdrawn. The abdominal wall was then cleaned and we placed a piece of gauze underneath the bolster on the abdominal wall. After this, Jessica was taken into recovery room in stable condition. Scarlett Partida MD ALB/MODL /[id number] cc: DO Scarlett Guzman MD Robert C Quackenbush, MD Dr. Karen Zink Copies: SHALA CALDERA ANDREW L MD Electronically Signed By: SCARLETT PARTIDA MD 01/10/18 0829 PATIENT NAME: JESSICA MCCRAY OPERATIVE REPORT DATE OF : 68 REPORT #: [id number] PHYSICIAN: SCARLETT PARTIDA MD PCP: HOMA VALERIO MD REPORT IS CONFIDENTIAL AND NOT TO BE RELEASED WITHOUT AUTHORIZATION [address] [address] Signed HOMA VALERIO MD ~ Electronically Signed By: SCARLETT PARTIDA MD 01/10/18 0829 PATIENT NAME: JESSICA MCCRAY OPERATIVE REPORT DATE OF : 68 REPORT #: [id number] PHYSICIAN: SCARLETT PARTIDA MD PCP: HOMA VALERIO MD REPORT IS CONFIDENTIAL AND NOT TO BE RELEASED WITHOUT AUTHORIZATION
--- NOTE | 2018-01-10 10:31 | NUR ---
PT UP TO CHAIR THIS AM FOR BREAKFAST, TOLERATED CHICKEN BROTH WELL. GAVE PT EDUCATION REGARDING USE OF PEG TUBE AND FLUSHING. PT REQUESTED PAIN MANAGEMENT AND NAUSEA MEDS AT 0745, GAVE WHEN DUE AT MED PASS AROUND 0830. PT HAS BEEN SLEEPING IN THE CHAIR INTERMITTENTLY SINCE ADMINISTRATION. PT HAS HAD NO SIGNS OF DISTRESS, DENIES SOB, AFEBRILE. PREPARING FOR DISCHARGE.
--- NOTE | 2018-01-10 11:40 | NUR ---
PT AND AT BEDSIDE, DISCUSSED PEG TUBE MAINTENANCE, HOME MEDS, DIET, AND FOLLOW UP APPOINTMENTS. ANSWERED ALL PT AND SPOUSE QUESTIONS AND CONCERNS. PT AND DEMONSTRATED UNDERSTANDING, HAD NO FURTHER QUESTIONS. PT DEACCESSED HER PORT HERSELF AFTER HEPARIN WAS ADMINISTERED. PROVIDED PT WITH BANDAID. ESCORTED TO CAR VIA WHEELCHAIR.
== END 2018-01-10 11:50 | disposition home or self-care (01) ==
LOC: DS 10:00 → MS 15:00 → DS 15:01 → MS 01-10 11:50
PROVIDERS: ADMIT Colon & Rectal Surgery
PROC: 0DH63UZ Insertion of Feeding Device into Stomach, Percutaneous Approach (ICD-10-PCS; principal; 2018-01-09 14:00)
DX: C18.9 Malignant neoplasm of colon, unspecified (principal); J45.909 Unspecified asthma, uncomplicated; N18.3 Chronic kidney disease, stage 3 (moderate); E03.9 Hypothyroidism, unspecified; F32.9 Major depressive disorder, single episode, unspecified; F41.9 Anxiety disorder, unspecified; H91.91 Unspecified hearing loss, right ear; G89.3 Neoplasm related pain (acute) (chronic); Z90.49 Acquired absence of other specified parts of digestive tract; Z88.0 Allergy status to penicillin; Z88.2 Allergy status to sulfonamides; Z88.8 Allergy status to other drugs, medicaments and biological substances; Z88.5 Allergy status to narcotic agent; Z79.899 Other long term (current) drug therapy; Z79.890 Hormone replacement therapy; Z79.891 Long term (current) use of opiate analgesic
CPT/HCPCS: 36415; 80048; 83735; 84100; 84134; 85025; 96372; 96374; 96375; 96376; G0378; J0690; J1170; J1644; J2250; J2405; J2550; J2704; J3010; J7120

== ENCOUNTER 2018-02-22 18:10 | Observation (INO) | payer MEDICARE, OTHER ==
[~2018-02-22] VITALS: Ht 162.6 cm; Wt 83.7 kg
[~2018-02-22 18:10] MED LIST changes: +LORAZEPAM INT2 MG/ML PO
--- NOTE | 2018-02-23 00:06 | NUR ---
COOP WITH ADMIT ASSESSMENT. PORTACATH R CHEST INTACT, IVF WITH 40MEQK D51/2NS INFUSING W/O PROBLEMS, PEG TUBE WITH BAG DRAINING/AIR TO GRAVITY. PT UP TO BRP WITH ONE ASSIST, VOIDED, DARK YELLOW URINE, BACK TO BED. USING TABLET. MEDICATED WITH DILAUDID 0.5MG IV C/O 8/10 GENERALIZED/ABD PAIN
--- NOTE | 2018-02-23 01:46 | NUR ---
RESTING, ROOM AIR, IVF INFUSING W/O PROBLEMS. PEG TUBE DRAINING INTO GRAVITY BAG. NO FURTHER C/O ABD PAIN AT THIS TIME
--- NOTE | 2018-02-23 05:00 | NUR ---
medicated with dilaudid 0.5mg IV c/o 05/13 generalized pain. Up to brp with one assist, voided, back to bed.
--- NOTE | 2018-02-23 05:24 | NUR ---
Oral temp 101.6, bedspread and 6 warm blankets plus pts own home warm blanket removed. room temp was set at 76. decreased to 70. CDB encouraged, not receptive as she is c/o of abd /generalizezd pain, Was medicated earlier with Dilaudid 0.5mg IV. Pt turns self in bed, no n/v
--- NOTE | 2018-02-23 05:45 | NUR ---
TEMP RETAKEN 100.0, DR PARTIDA NOTIFIED VIA PHONE OF PTS EARLIER TEMP, AND REMOVAL OF BLANKETS AND OF NEW TEMP. N.O FOR TYLENOL OBTAINED. INFORMED OF PTS CONTINUOUS C/O ABD /GENERALIZED PAIN. WITH MILD TO NO PAIN RELIEF FROM CURRENT DILAUDID DOSAGES. N.O TO INCREASE CURRENT DIALUDID ORDER TO 0.75-1MG IV OBTAINED. LAB IN ROOM, BLOOD DRAWN BY THIS RN FROM [facility]
--- NOTE | 2018-02-23 06:13 | NUR ---
TEMP 98.9 AT THIS TIME, 2 BLANKETS RETURNED TO PT AT HER REQUETS. MEDICATED WITH 1MG IV DIALUDID 03/13 ABD/GENERALIZED PAIN
--- NOTE | 2018-02-23 06:16 | NUR ---
PT CURRENTLY INBED, RESTING ON LEFT SIDE. HAS BEEN MEDICATED WITH DILAUDID IV 0.5MG X2 WITH MILD TO POOR RELIEF, NEW ORDERS TO INCREASE DIALUDID OBTAINED AND WAS MEDICATED WITH 1MG IV DILAUDID, GOOD PAIN RELIEF STATED AT THIS TIME. ABD PEG TUBE TO GRAVITY, NO DRAINAGE. UP TO BRP WITH ONE ASSIST, VOIDING QSPT HAS BEEN NPO SINCE ADMISSION. NO OTHER REQUESTS. CALL LIGHT AT HANDS REACH
--- NOTE | 2018-02-23 08:15 | NUR ---
PT MEDICATED WITH IV DILAUDID FOR C/O PAIN. IN BED AWAKE, ALERT AND ORIENTED. PEG TUBE IN PLACE, NO DRAINAGE OR BLEEDING AT SITE OR IN BAG. PORT ACCESSED, FLUSHES WELL WITH GOOD BLOOD RETURN. CALL LIGHT WITHIN REACH.
--- NOTE | 2018-02-23 09:15 | NUR ---
SPOKE WITH DIRECT[facility] OF [facility]. SHE STATES THEY MOST LIKELY WILL NOT ACCEPT PATIENT BACK TO THEIR SERVICES. SHE WILL SPEAK WITH THE CONTINUOUS PILLOWCASE CUTTER, DR ANGLIN.
--- NOTE | 2018-02-23 09:23 | NUR ---
PUMP ALARMING, INFUSION COMPLETE. NEW FLUID BAG HUNG. PT RESTING IN BED. NO REQUESTS OR COMPLAINTS. BED RAILSUP. CALL LIGHT WITHIN REACH.
--- NOTE | 2018-02-23 10:15 | NUR ---
SPOKE AGAIN WITH HOME HEALTH DIRECTOR FOR [facility]. SHE STATES THE WELDING EQUIPMENT REPAIRER DOES NOT FEEL THEY CAN MEET THIS PATIENTS NEEDS.
--- NOTE | 2018-02-23 11:10 | NUR ---
PT IN BED WITH EYES CLOSED, RESP EVEN AND UNLABORED. OREN AT BEDSIDE.
--- NOTE | 2018-02-23 12:13 | NUR ---
SPOKE WITH PATIENT AND CALVIN REGARDING HER WISHES. PATIENT WAS DROWSY, SLOW TO RESPOND. PATIENT WANTS FIRST STATED SHE WANTED TO STAY IN THE HOSPITAL. EXPLAINED THAT SHE IS HERE TO GET SYPMTOM CONTROL, MEDICAL CONDITION CONTROLLED SUCH LABS. WE DISCUSSED THAT SHE CAN RETURN TO A HOSPICE PROGRAM. I DID DISCUSS WITH THEM THAT OUR HOSPICE PROGRAM CANNOT ACCOMODATE THEM AT THIS TIME. HER STATED THEY HAD A DISAGREEMENT WITH "THAT DOCTOR" AND THEY DO NOT WANT TO USE THEM ANYWAY. THEY WOULD LIKE TO TRY [facility]. THE STATES HE AND HIS SON WOULD BE MAIN CAREGIVERS THEY HAVE BEEN IN THE PAST. I ALSO TOLD THEM THERE IS ANOTHER HOSPICE PROGRAM OUT OF [place] THAT IS A POSSIBILITY. THEY WOULD LIKE TO TRY [facility] FIRST.
--- NOTE | 2018-02-23 12:45 | NUR ---
PT MEDICATED WITH DILAUDID AND SL ATIVAN. TAKING SIPS OF CLEARS, CHRISTIANO WELL. MINMAL ASSIST TO COMMODE AND BACK TO BED. CALL LIGHT WITHIN REACH.
--- NOTE | 2018-02-23 12:51 | NUR ---
ENTERED PT'S RM, PT IN BED ASLEEP. CALVIN BY PT'S SIDE. PT JUST RECEIVED DILUDID, STRUGGLING. HAD GOOD, HONEST CONVERSATION AND HE ADMITTED THAT PT AND FAMILY JUST DON'T KNOW WHAT DIRECTION TO GO NEXT. THEY EITHER WANT TO BE AT [facility] OR AT THEIR HM, BUT PAIN CONTROL IS ROBERT FOR THEM. HAD PRAYER WITH CALVIN, SAID HE IS WAITING FOR THEIR SON TO COME AND TAKE OVER SO HE CAN GO BACK TO WORK. WILL FOLLOW NEEDED
--- NOTE | 2018-02-23 13:20 | NUR ---
SPOKE WITH [facility] [phone]. DISCUSSED THAT PATIENT IS REQUESTING HOSPICE WITH THEIR SERVICES. QUESTIONS ANSWERED. THEY REQUEST CHART NOTES SENT.
--- NOTE | 2018-02-23 15:20 | NUR ---
CLINICALS FAXED TO [facility] [phone]. FAX CONFIRMATION RECEIVED.
--- NOTE | 2018-02-23 15:50 | NUR ---
PT IN BED SLEEPING, RESP EVEN AND UNLABORED. IV INFUSING IN PORT WITHOUT PROBLEMS. CALL LIGHT WITHIN REACH.
--- NOTE | 2018-02-23 17:45 | NUR ---
PT MEDICATED WITH 1.5MG IV DILAUDID FOR C/O OF GENERALIZED PAIN. PT SITTING IN BED WATCHING TV, READING ON JAIRO, CHATTING WITH SON. CALL LIGHT WITHIN REACH.
--- NOTE | 2018-02-23 19:33 | NUR ---
REPORT RECEIVED FROM IMMANUEL CHAVARRIA. PT RESTING IN BED AND APPEARS TO BE IN NO ACUTE DISTRESS NO CONCERNS VOICED. CALL LIGHT IN REACH.
--- NOTE | 2018-02-23 20:49 | NUR ---
PT RESTING IN BED, FACIAL GRIMMACE NOTED PT REPORTS 10/10 LOWER ABD PAIN. IV 1.5MG DILAUDID ADMINSITERED SLOW IVP. CALL LIGHT IN REACH AND PT DENIES FURTHER REQUESTS AT THIS TIME.
--- NOTE | 2018-02-24 00:35 | NUR ---
PT RESTING IN BED, EYES CLOSED ALERT TO VOICE. RR14. PT STATES PAIN IS TOLERABLE AT 2/10. CALL LIGHT AND ICE WATER IN REACH.
--- NOTE | 2018-02-24 02:28 | NUR ---
PT REPORTS 10/10 PAIN AND NAUSEA SO PRN IV DILAUDID AND IV ZOFRAN ADMINISTERED. CALL LIGHT AND ICE WATER IN REACH.
--- NOTE | 2018-02-24 05:37 | NUR ---
PT RESTING IN BED, RR EVEN AND UNLABORED AT 14. CALL LIGHT IN REACH. PT APPEARS TO BE SLEEPING COMFORTABLY.
--- NOTE | 2018-02-24 08:00 | NUR ---
PT IN BED COMPLAINING OF CONSISTENT ABDOMINAL PAIN THAT WAKES HER UP. PT HAS NAUSEA INTERMITTENTLY, GAVE PRN ZOFRAN AND DILAUDID. PT HAS SIGNIFICANT PAIN WITH MOVEMENT. PT STATED THAT SHE WISHES TO HAVE A MEDICAL SUICIDE AND THAT SHE HAS REACHED A DECISION. PT IS GROANING, AND STATES THAT PAIN IS RELIEVED FOR A SHORT TIME WITH MEDICATION. WILL CONTINUE TO MONITOR.
--- NOTE | 2018-02-24 11:39 | NUR ---
MED REC COMPLETE
--- NOTE | 2018-02-24 13:01 | NUR ---
PT RESTING IN BED WITH AND BEDSIDE. PT STATES THAT NAUSEA IS VERY LOW AND IS REQUESTING PAIN MANAGEMENT BEFORE DISCHARGE, LET PT KNOW THAT IT IS TOO EARLY TO GIVE PRN DILAUDID. PREPARING FOR DISCHARGE. NO DISTRESS, SLIGHTLY DROWSY, WILL CONTINUE TO MONITOR.
--- NOTE | 2018-02-25 09:00 | DS ---
[facility] [address] [place], [place] [address] Signed ADMISSION DATE: 02/22/2018 DISCHARGE DATE: 02/24/2018 FINAL DIAGNOSES: 1. Stage IV colon cancer. 2. Renal dysfunction. 3. Multiple electrolyte abnormalities. 4. Partial small bowel obstruction. HISTORY OF PRESENT ILLNESS: Jessica is a 47-year-old female who was diagnosed with colon cancer back in 2012. She had her surgery done in [place], but eventually made her way to [place] because of her 's employment. She has been following along with her medical oncologist, Dr. Homa Valerio. Unfortunately, she has been through three different rounds of chemo and she is now with stage IV colon cancer. She is not a candidate for additional chemotherapy or surgery. She started to develop bowel obstruction from the cancer and so a PEG tube had been placed to help decompress her stomach. She came back in the hospital with the night of admission with basically pain, and also some dehydration and electrolyte abnormalities, worsening renal function. I was asked to admit her as a general surgeon on-call. HOSPITAL COURSE: Jessica was admitted as above and we hydrated her and began to correct her electrolytes. She is much improved. Our hospitalist services seen her along with our discharge planners. We were hoping [facility] will take her, as she was discharged from our local hospital service. She said the main thing she wants the pain to go away. However, she has been declining fentanyl patches and saying that the increasing oxycodone is not working. At this point, her and son are with her and she had explained that she would like to go home at this time. She is aware of the [facility] hopefully will be calling her, but she is also considering going back down to [place] and considering assisted suicide. She and her family are going to look into that over the internet. DISCHARGE PLANS AND MEDICATIONS: Jessica will not be discharged to home with any new prescriptions. She can continue her prescriptions from her medical oncologist. Hopefully, with the [facility], will be giving her a call soon and their phone number is #[phone]. I explained to Jessica, I am not a primary care provider and there is really nothing more for me to offer her as a general surgeon. If she wants to pursue assisted suicide, she can look that up on the internet and contact via appropriate people in [place]. I certainly do not do that. I am not aware of anyone around here that does. They have Electronically Signed By: SCARLETT PARTIDA MD 02/25/18 0900 PATIENT NAME: JESSICA MCCRAY DISCHARGE SUMMARY DATE OF : 68 REPORT #: [id number] PHYSICIAN: SCARLETT PARTIDA MD PCP: NO PRIMARY CARE PHYSICIAN REPORT IS CONFIDENTIAL AND NOT TO BE RELEASED WITHOUT AUTHORIZATION [facility] [address] [place] [id number] Signed expressed understanding and agreed the above plan. Scarlett Partida MD ALB/MODL /[id number] cc: MD Dr. Austin Sanches DO Andrew L Bower, MD Copies: [place] VALERIO MD,SCARLETT VARELA MD ~ Electronically Signed By: SCARLETT PARTIDA MD 02/25/18 0900 PATIENT NAME: JESSICA MCCRAY DISCHARGE SUMMARY DATE OF : 68 REPORT #: [id number] PHYSICIAN: SCARLETT PARTIDA MD PCP: NO PRIMARY CARE PHYSICIAN REPORT IS CONFIDENTIAL AND NOT TO BE RELEASED WITHOUT AUTHORIZATION
--- NOTE | 2018-02-25 09:00 | CONS ---
[facility] [address], [place] [address] Signed DATE OF CONSULTATION: 02/23/2018 CHIEF COMPLAINT: Pain. HISTORY OF PRESENT ILLNESS: Jessica is a 47-year-old female with known stage IV colon cancer. She is developing progressive bowel obstruction. She also has a PEG tube in place to help stomach. Unfortunately, she has no primary care provider in town and she was discharged from our hospice team from what sounds like methamphetamine use. She continues to decline and was having pain and so she wanted to come into the emergency room Friday night. I was asked to admit her as a general surgeon on-call and we hydrated her overnight and began to correct some of her electrolytes. Overall, she says she is feeling better. ALLERGIES: Bactrim, chlorhexidine, morphine, oxaliplatin, penicillin, and sulfa drugs. MEDICATIONS: Ambien, oxybutynin, oxycodone, polyethylene glycol, Premarin, and docusate. PAST MEDICAL HISTORY: Insomnia, hearing loss, edema, asthma, moderate kidney dysfunction, ureteral obstruction, hypothyroidism, bacterial meningitis, depression, anxiety, chronic pain from her cancer, colon cancer diagnosed in June 2013, and pain in her lower leg with ambulation. PAST SURGICAL HISTORY: Includes a PEG tube January 09, 2018, right chest wall port-a-cath replacement, colonoscopy February 2015, colonoscopy in 2013, cystoscopy in 2013, left colectomy with ileostomy in 2012 with reversal of the ileostomy in 2013, laparoscopic lysis of adhesions [address] Jhoana Avila at [facility], incisional hernia repair of her midline incision and ileostomy site [place] [address] Jhoana Avila, replacement of her bilateral nephrostomy tubes in 2013, and vaginal hysterectomy in 2005. SOCIAL HISTORY: She likes energy drinks, but does not smoke or chew tobacco or drink alcohol. She does not use drugs, other than some methamphetamine, which she used for the pain. 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 She is and has [address] Jonathon Noe was her primary care provider, Dr. Jhoana Avila is her surgeon in [place], Dr. Homa Velasquez is her medical oncologist. FAMILY HISTORY: Electronically Signed By: SCARLETT PARTIDA MD 02/25/18 0900 PATIENT NAME: JESSICA MCCRAY CONSULTATION DATE OF : 68 REPORT #: [id number] PHYSICIAN: SCARLETT PARTIDA MD PCP: NO PRIMARY CARE PHYSICIAN REPORT IS CONFIDENTIAL AND NOT TO BE RELEASED WITHOUT AUTHORIZATION [facility] [address] [place] [id number] Signed Her grandparents had cancer. Her dad had heart disease. Maternal grandmother had breast cancer and maybe ovarian cancer. PHYSICAL EXAMINATION: VITAL SIGNS: She was afebrile. Vital signs are stable. LUNGS: Clear to auscultation. HEART: Regular in rate and rhythm. ABDOMEN: Somewhat full and a little tender. LABORATORY DATA: Her white blood cell count was 7, hemoglobin 9.6, platelets of 301, neutrophils 71. Her sodium was low at 130, potassium 3.1, her CO2 is 33, BUN 47, creatinine 2.4. Her magnesium was 1.3 and the alkaline phosphatase was up at 158, but AST and ALT are fine. Her albumin is low 2.9. RADIOGRAPHIC STUDIES: She had a CT scan done in the ER. Again, it showed tumor burden in her abdomen and her PEG tube was in place. ASSESSMENT AND PLAN: Jessica is a 47-year-old female with stage IV colon cancer. She continues to decline overall. We admitted her overnight for IV fluids and correcting her renal function and her electrolytes. We will go ahead and continue that throughout the day and we will have our Internal Medicine Service see her for medical evaluation and management. We will talk to our personal financial planner to see if we can find one of the other hospice teams in our area to help her. She has expressed understanding and agrees to the above plan. Scarlett Partida MD ALB/MODL /[id number] cc: Patient's Chart MD Jonathon Mendoza DO Electronically Signed By: SCARLETT PARTIDA MD 02/25/18 0900 PATIENT NAME: JESSICA MCCRAY CONSULTATION DATE OF : 68 REPORT #: [id number] PHYSICIAN: SCARLETT PARTIDA MD PCP: NO PRIMARY CARE PHYSICIAN REPORT IS CONFIDENTIAL AND NOT TO BE RELEASED WITHOUT AUTHORIZATION [address] [address] Signed MD Jhoana Sanches MD Copies: SCARLETT PARTIDA MD,HOMA BEARD MD ~ Electronically Signed By: SCARLETT PARTIDA MD 02/25/18 0900 PATIENT NAME: NAVDEEP MCCRAYTYREE GARCIA CONSULTATION DATE OF : 68 REPORT #: [id number] PHYSICIAN: SCARLETT PARTIDA MD PCP: NO PRIMARY CARE PHYSICIAN REPORT IS CONFIDENTIAL AND NOT TO BE RELEASED WITHOUT AUTHORIZATION
== END 2018-02-24 13:30 | disposition home or self-care (01) ==
LOC: ED 18:10 → MS 18:12
PROVIDERS: ADMIT Colon & Rectal Surgery
DX: C18.9 Malignant neoplasm of colon, unspecified (principal); C79.51 Secondary malignant neoplasm of bone; N17.9 Acute kidney failure, unspecified; E87.6 Hypokalemia; E83.42 Hypomagnesemia; E86.0 Dehydration; G89.3 Neoplasm related pain (acute) (chronic); R10.30 Lower abdominal pain, unspecified; F41.9 Anxiety disorder, unspecified; G47.00 Insomnia, unspecified; F32.9 Major depressive disorder, single episode, unspecified; E03.9 Hypothyroidism, unspecified; Z85.43 Personal history of malignant neoplasm of ovary; Z86.61 Personal history of infections of the central nervous system; Z93.1 Gastrostomy status; Z79.890 Hormone replacement therapy; Z79.891 Long term (current) use of opiate analgesic; Z79.899 Other long term (current) drug therapy; Z88.5 Allergy status to narcotic agent; Z88.0 Allergy status to penicillin; Z88.2 Allergy status to sulfonamides; Z88.8 Allergy status to other drugs, medicaments and biological substances
CPT/HCPCS: 51701; 51798; 74176; 80048; 80053; 81001; 83690; 83735; 84100; 85025; 96361; 96372; 96374; 96375; 96376; 99285; G0378; J1170; J1644; J2405; J2550; J3475; J3480; J7030; J7040

== ENCOUNTER 2018-03-14 13:42 | Emergency (ER) | payer MEDICARE, OTHER ==
[~2018-03-14] VITALS: Ht 162.6 cm; Wt 84.1 kg
--- OUTSIDE RECORDS SUMMARY | ~2018-03-14 | XMS | Encounter Summary ---
Demographics + + + | Address | [address] | | | [place] [address] | + + + | Home Phone | | + + + | Preferred Language | Unknown | + + + | Marital Status | | + + + | Christian Affiliation | 1041 | + + + | Race | Unknown | + + + | Ethnic Group | Unknown | + + + Author + + + | Author | [facility] | | | and [place] | + + + | Organization | [facility] | | | and [place] | + + + | Address | Unknown | + + + | Phone | Unavailable | + + + Support + + + + + | Name | Relationship | Address | Phone | + + + + + | Rocael Pino | ECON | [address] | | | | | [place] | | | | | [address] | | + + + + + | Joey Pino | ECON | [address] | | | | | [place] | | | | | [address] | | + + + + + Care Team Providers + +------+ + | Care Offset Lithographic Press Setter Name | Role | Phone | + [...] Description | +--------+--------+ + + + | 01/19/ | Refill | [facility] | Ron, | Medication Refill | | 2017 | | MED [facility] | Jagdeep Oh MD [address] | | | | | [address] | [address] [facility] | | | | | [address] | [place] [address] | | | | | [place] [address] | [phone] | | | | | [phone] | | | +--------+--------+ + + + [...] Description | +--------+---------+ + + + | 03/31/ | Office | Urology | Dangelo Sanders, | | | 2018 | Visit | | [address] [facility], | | | | | | [address] | | | | | | [place] [address] | | | | | | [phone] | | | | | | | | +--------+---------+ + + + as of this encounter Visit Diagnoses + + | Diagnosis | + + | 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
--- OUTSIDE RECORDS SUMMARY | ~2018-03-14 | XMS | Encounter Summary ---
Demographics + + + | Address | [address] | | | [place] [address] | + + + | Home Phone | | + + + | Preferred Language | Unknown | + + + | Marital Status | | + + + | Voodoo Affiliation | 1041 | + + + | Race | Unknown | + + + | Ethnic Group | Unknown | + + + Author + + + | Author | [facility] | | | and [place] | + + + | Organization | [facility] | | | and [place] [...] [place] | | | | | [address] | | + + + + + | Joey Pino | ECON | [address] | | | | | [place] | | | | | [address] | | + + + + + Care Team Providers + +------+ + | Care Machine Sizer Name | Role | Phone | + +------+ + | Jagdeep Velasquez MD | PCP | Unavailable | + +------+ + Reason for Visit + + + | Reason | Comments | + + + | Appointment | | + + + Encounter Details +--------+ + + + + | Date | Type | Department | Care Team | Description | +--------+ + + + + | 02/23/ | Telephone | [facility] | Dangelo Sanders, | Appointment | | 2018 | | [address] | MD [address], | | | | | [address] [place] | [address] [place] | | | | | [place] [address] | [place] [address] | | | | | [phone] | [phone] | | | | | | | | +--------+ + + + [...] | | | | | [place] [address] | | | | | | [phone] | | | | | | | | +--------+---------+ + + + as of this encounter Visit Diagnoses Not on filein this encounter"
--- OUTSIDE RECORDS SUMMARY | ~2018-03-14 | XMS | Encounter Summary ---
Demographics + + + | Address | [address] | | | [place] [address] | + + + | Home Phone | | + + + | Preferred Language | Unknown | + + + | Marital Status | | + + + | Gnosticist Affiliation | 1041 | + + + | Race | Unknown | + + + | Ethnic Group | Unknown | + + + Author + + + | Author | [facility] | | | and [place] | + + + | Organization | [facility] | | | and [place] [...] [place] | | | | | [address] | | + + + + + | Joey Pino | ECON | [address] | | | | | [place] | | | | | [address] | | + + + + + Care Team Providers + +------+ + | Care Spanner Operator Name | Role | Phone | + +------+ + | Jagdeep Velasquez MD | PCP | Unavailable | + +------+ + Reason for Visit + + + | Reason | Comments | + + + | Lab Order | | + + + Encounter Details +--------+ + + + + | Date | Type | Department | Care Team | Description | +--------+ + + + + | 02/17/ | Telephone | [facility] | Dangelo Sanders, | Lab Order | | 2017 | | [address] | MD [address], | | | | | [address] [place] | [address] [place] | | | | | [place] [address] | [place] [address] | | | | | [phone] | [phone] | | | | | | | [...] | | | | | [place] [address] | | | | | | [phone] | | | | | | | | +--------+---------+ + + + as of this encounter Visit Diagnoses Not on filein this encounter"
--- OUTSIDE RECORDS SUMMARY | ~2018-03-14 | XMS | Encounter Summary ---
Demographics + + + | Address | [address] | | | [place] [address] | + + + | Home Phone | | + + + | Preferred Language | Unknown | + + + | Marital Status | | + + + | Oriental Orthodox Affiliation | 1041 | + + + | Race | Unknown | + + + | Ethnic Group | Unknown | + + + Author + + + | Author | [facility] | | | and [place] | + + + | Organization | [facility] | | | and [place] | [...] [place] | | | | | [address] | | + + + + + | Joey Pino | ECON | [address] | | | | | [place] | | | | | [address] | | + + + + + Care Team Providers + +------+ + | Care Brown Sourer Name | Role | Phone | + [...] | +--------+ + + + + | 01/12/ | Telephone | [facility] | Dangelo Sanders, | Appointment | | 2018 | | [address] | MD [address], | | | | | [address] [place] | [address] [place] | | | | | [place] [address] | [place] [address] | | | | | [phone] | [phone] | | | | | | | [...] | | | | | [place] [address] | | | | | | [phone] | | | | | | | | +--------+---------+ + + + as of this encounter Visit Diagnoses Not on filein this encounter"
--- OUTSIDE RECORDS SUMMARY | ~2018-03-14 | XMS | Encounter Summary ---
Demographics + + + | Address | [address] | | | [place] [address] | + + + | Home Phone | | + + + | Preferred Language | Unknown | + + + | Marital Status | | + + + | Muslim Affiliation | 1041 | + + + | Race | Unknown | + + + | Ethnic Group | Unknown | + + + Author + + + | Author | [facility] | | | and [place] | + + + | Organization | [facility] | | | and [place] [...] [place] | | | | | [address] | | + + + + + | Joey Pino | ECON | [address] | | | | | [place] | | | | | [address] | | + + + + + Care Team Providers + +------+ + | Care Vp Home Health Name | Role | Phone | + +------+ + | Jagdeep Velasquez MD | PCP | Unavailable | + +------+ + Reason for Visit + + + | Reason | Comments | + + + | Cystitis | | + + + Encounter Details +--------+ + + + + | Date | Type | Department | Care Team | Description | +--------+ + + + + | 12/15/ | Orders Only | [facility] | Ron, | Cystitis (Primary | | 2018 | | [facility] | Jagdeep Oh MD [address] | Dx) | | | | [address]OG[address] CL[address] | [address] | | | | | [address] [place] | [place] [address] | | | | | [place] [address] | [phone] | | | | | [phone] | | | +--------+ + + + [...] + + + as of this encounter Progress Notes Mini Joel RN - 12/15/2017 1346 PDTI have called patient, no answer, lily hernandes in this encounter Plan of Treatment +--------+---------+ + + + | Date | Type | Specialty | Care Team | Description | +--------+---------+ + + + | 03/31/ | Office | Urology | Dangelo Sanders, | | | 2017 | Visit | | MD [address] , | | | | | | [address] | | | | | | [place] [address] | | | | | | [phone] | | | | | | | | +--------+---------+ + + + as of this encounter Visit Diagnoses + + | Diagnosis | + + | Cystitis - Primary | + + | Cystitis, unspecified | + +"
--- OUTSIDE RECORDS SUMMARY | ~2018-03-14 | XMS | Encounter Summary ---
Demographics + + + | Address | [address] | | | [place] [address] | + + + | Home Phone | | + + + | Preferred Language | Unknown | + + + | Marital Status | | + + + | Methodist Affiliation | 1041 | + + + | Race | Unknown | + + + | Ethnic Group | Unknown | + + + Author + + + | Author | [facility] | | | and [place] | + + + | Organization | [facility] | | | and [place] [...] [place] | | | | | [address] | | + + + + + | Joey Pino | ECON | [address] | | | | | [place] | | | | | [address] | | + + + + + Care Team Providers + +------+ + | Care Envelope Adjuster Name | Role | Phone | + [...] Description | +--------+--------+ + + + | 02/26/ | Refill | [facility] | Ron, | Medication Refill | | 2017 | | MED [facility] | Jagdeep Oh MD [address] | | | | | [address] CL[address] | [address] [facility] | | | | | [address] | [place] [address] | | | | | [place] [address] | [phone] | | | | | [phone] | | | +--------+--------+ + + + [...] 2018 | Visit | | [address] [facility], | | | | | | [address] | | | | | | [place] [address] | | | | | | [phone] | | | | | | | | +--------+---------+ + + + as of this encounter Visit Diagnoses + + | Diagnosis | + + | 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
--- OUTSIDE RECORDS SUMMARY | ~2018-03-14 | XMS | Encounter Summary ---
Demographics + + + | Address | [address] | | | [place] [address] | + + + | Home Phone | | + + + | Preferred Language | Unknown | + + + | Marital Status | | + + + | Buddhist Affiliation | 1041 | + + + | Race | Unknown | + + + | Ethnic Group | Unknown | + + + Author + + + | Author | [facility] | | | and [place] | + + + | Organization | [facility] | | | and [place] [...] [place] | | | | | [address] | | + + + + + | Joey Pino | ECON | [address] | | | | | [place] | | | | | [address] | | + + + + + Care Team Providers + +------+ + | Care Lab Analyst Name | Role | Phone | + +------+ + | Jagdeep Velasquez MD | PCP | Unavailable | + +------+ + Reason for Visit + + + | Reason | Comments | + + + | Vomiting | | + + + Encounter Details +--------+ + + + + | Date | Type | Department | Care Team | Description | +--------+ + + + + | 12/12/ | Telephone | [facility] | Dangelo Sanders, | Vomiting | | 2018 | | [address] | MD [address], | | | | | [address] [place] | [address] [place] | | | | | [place] [address] | [place] [address] | | | | | [phone] | [phone] | | | | | | | [...] | | | | | [place] [address] | | | | | | [phone] | | | | | | | | +--------+---------+ + + + as of this encounter Visit Diagnoses Not on filein this encounter"
--- OUTSIDE RECORDS SUMMARY | ~2018-03-14 | XMS | Clinical Summary ---
Demographics + + + | Address | [address] | | | [place] [address] | + + + | Home Phone | | + + + | Preferred Language | Unknown | + + + | Marital Status | | + + + | Buddhism Affiliation | 1041 | + + + | Race | Unknown | + + + | Ethnic Group | Unknown | + + + Author + + + | Author | [facility] | | | and [place] | + + + | Organization | [facility] | | | and [place] | + + + | Address | Unknown | + + + | Phone | Unavailable | + + + Support + + + + + | Name | Relationship | Address | Phone | + + + + + | Rocael Pino | ECON | [address] | | | | | [place] | | | | | [address] | | + + + + + | Joey Pino | ECON | [address] | | | | | [place] | | | | | [address] | | + + + + + Care Team Providers + +------+ + | Care Maintenance Technician 2Nd Shift Name | Role | Phone | + +------+ + | Jagdeep Velasquez MD | PP | Unavailable | + +------+ + Allergies + + + + + + | Active Allergy | Reactions | Severity | Noted | Comments | | | | | Date | | + + + + + + | Chlorhexidine | Rash | Low | 05/08/20 | | | | | | 15 | | + + + + + + | Latex | Rash | Low | 02/14/20 | Powder from gloves | | | | | 16 | causes rash, also | | | | | | vaginal irritation | | | | | | with contact to | | | | | | latex | + + + + + + | Levofloxacin | Hives | Medium | 05/08/20 | | | | | | 15 | | + + + + + + | Morphine | Other (See Comments) | Low | 02/13/20 | Hallucination | | | | | 16 | | + + + + + + | Penicillins | Other (See Comments) | | 05/08/20 | "since childhood | | | | | 15 | they always told me | | | | | | not to take it". | + + + + + + | Sulfamethoxazole-Tri | Hives | Medium | 05/08/20 | | | methoprim | | | 15 | | + + + + + + Current Medications + + + +---------+------+------+-------+ | Prescription | Sig. | Disp. | Refills | Star | End | Statu | | | | | | t | Date | s | | | | | | Date | | | + + + +---------+------+------+-------+ | Cholecalciferol | Take 1 capsule by | | | | | Activ | | (VITAMIN D3) 2000 | mouth. Take 1 | | | | | e | | UNITS CAPS | capsule by mouth | | | | | | | | Daily. | | | | | | + + + +---------+------+------+-------+ | Bisacodyl | Take by mouth as | | | | | Activ | | (LAXATIVE PO) | needed. | | | | | e | + + + +---------+------+------+-------+ | ondansetron | Take 8 mg by mouth | | 0 | 08/2 | | Activ | | (ZOFRAN ODT) 8 mg | every 8 hours as | | | 8/20 | | e | | disintegrating | needed. | | | 16 | | | | tablet | | | | | | | + + + +---------+------+------+-------+ | clindamycin 1% | APPLY TWICE DAILY | 60 g | 2 | 09/05 | | Activ | | gelIndications: | NEEDED FOR | | | 01/21 | | e | | Malignant neoplasm | CHEMOTHERAPY INDUCED | | | 18 | | | | of colon, | ACNE | | | | | | | unspecified part of | | | | | | | | colon (HCC) | | | | | | | + + + +---------+------+------+-------+ | oxyCODONE 20 MG | Take 40 mg by mouth | | | | | Activ | | TABS | every 4 hours as | | | | | e | | | needed for Pain. | | | | | | + + + +---------+------+------+-------+ | ALPRAZolam (XANAX) | Take 1-2 mg by mouth | | | | | Activ | | 1 MG tablet | every 8 hours as | | | | | e | | | needed for Anxiety. | | | | | | + + + +---------+------+------+-------+ | ciprofloxacin | Take 500 mg by mouth | | | | | Activ | | (CIPRO) 500 mg | 2 times daily. | | | | | e | | tablet | | | | | | | + + + +---------+------+------+-------+ | DULoxetine | Take 30 mg by mouth | | | | | Activ | | (CYMBALTA) [address] | Daily. | | | | | e | | capsule | | | | | | | + + + +---------+------+------+-------+ | promethazine | Place 50 mg rectally | | | | | Activ | | (PHENERGAN) 50 mg | every 6 hours as | | | | | e | | suppository | needed for Nausea. | | | | | | + + + +---------+------+------+-------+ | oxybutynin | Take 5 mg by mouth | | | | | Activ | | (DITROPAN XL) 5 mg | Daily as needed for | | | | | e | | 24 hr tablet | Bladder Spasms. | | | | | | + + + +---------+------+------+-------+ | oxyCODONE | Take 1-2 mLs by | 100 mL | 0 | 05/2 | | Activ | | (OXYFAST) 20 mg/mL | mouth every 4 hours | | | 4/20 | | e | | concentrated liquid | as needed for Pain. | | | 18 | | | + + + +---------+------+------+-------+ | PREMARIN 0.9 MG | TAKE 1 TABLET BY | 30 | 0 | 07/2 | | Activ | | tabletIndications: | MOUTH EVERY DAY | tablet | | 6/20 | | e | | Malignant neoplasm | | | | 18 | | | | metastatic to right | | | | | | | | ovary (HCC) | | | | | | | + + + +---------+------+------+-------+ | PREMARIN 0.9 MG | TAKE 1 TABLET BY | 30 | 0 | 06/1 | 07/2 | Disco | | tabletIndications: | MOUTH EVERY DAY | tablet | | 8/20 | 6/20 | ntinu | | Malignant neoplasm | | | | 18 | 18 | ed | | metastatic to right | | | | | | | | ovary (HCC) | | | | | | | + + + +---------+------+------+-------+ Active Problems + + + | Problem | Noted Date | + + + | Neoplasm related pain | 10/28/2017 | + + + + + | Last Assessment & Plan: Continue dilaudid ELECTRIC FAN ASSEMBLER. | + + + + + | Intractable vomiting with nausea | 10/28/2017 | + + + + + | Overview: Intractable nausea and vomiting, potentially | | related to partial bowel obstruction from recurrent colon cancer. | | Last Assessment & Plan: Discontinue all oral | | medications.Lorazepam and ondansetron intravenous prn. 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 She | | underwent exploratory laparotomy, colectomy with ileostomy, and | | excision of bilateral ovarian masses by Dr. Jhoana Avila at | | [facility] in 2012. Because of her | | bilateral ureteral obstruction, she had bilateral percutaneous | | nephrostomy tubes placed. She subsequently underwent | | chemotherapy, and Dr. Avila then subsequently performed takedown | | of her ileostomy. Her nephrostomy tubes were subsequently | | internalized to double-J stents, and her ureteral stents were | | periodically replaced by Dr. Halina Gibson, then they were | | eventually removed in approximately August 2014. She reported | | significant bother related to her ureteral stents, and Dr. Gibson | | had to replace her stents on multiple occasions to try to | | alleviate her pain. In May 2015, her serum creatinine | | increased to 1.48, and she underwent cystoscopy with bilateral | | retrograde pyelography on 05/09/2015. No obstructive uropathy was | | identified on the left side, but she appeared to have persistent | | obstruction of the right side, at the UVJ, and in the pelvic | | portion of the distal right ureter. A right ureteral stent was | | placed on 05/09/2015. She was subsequently diagnosed with | | additional metastatic lesions. Despite additional chemotherapy | | at [facility], her metastatic/recurrent disease did not respond | | favorably, and she states that she was told that she was | | "terminal," and she was placed on hospice. After failure to | | follow up for stent replacement, she eventually had her right | | ureteral stent replaced on 02/21/2016. She then had a Resonance | | stent (6F x 26 cm) placed on approximately 08/28/2016. Her | | resonance stent was last replaced on 08/20/2017. Her stent | | replacement on 08/20/2017 was very difficult due to progression of | | obstruction of her right ureter. Additionally, she appeared to | | have polypoid lesions in her ureter. Additionally, a 2 cm | | papillary tumor was present in her mid bladder, which was | | resected on 08/20/2017. Pathological specimen # [id number] | | "adenocarcinoma, consistent with metastatic colorectal cancer." | | Last Assessment & Plan: Jessica Pino was last treated | | for metastatic colon cancer on July 01, 2016. Since then she | | has been on palliative care, most recently with oxycodone IR 20 | | mg dispense #250 for 30 days. Her most recent [id number] | | evaluation was with a CT scan of the abdomen and pelvis without | | contrast on June 24, 2016 at [facility] in | | [facility] which demonstrated multiple ill-defined soft | | tissue nodules in the left side of the abdomen, left upper | | quadrant anterior to the stomach and spleen and extending into | | the left karl-colonic gutter behind the ascending colon. Jessica | | has defined her goals of therapy to be as comfortable as possible | | and to receive palliative care only.The goal of this admission | | has been reached; pain is under control with dilaudid ELECTRIC FAN ASSEMBLER, 0.8 mg | | demand only , with 10 minute lockout. She remains nauseated and | | continues to have emesis.Hospice admission to [facility] | | [facility] has been approved by their director of graduate medical education, | | Dr. Scott Epstein. Jessica Pino signed a pain | | contract with [facility] at the request | | of their director of graduate medical education, Dr. Scott Epstein.Patient will be | | discharged today with her port-a-cath stably accessed for home | | use.She will receive a single dose of dilaudid, 2 mg iv | | immediately prior to discharge to control her malignant neoplasm | | related pain needs until she gets home to [place] by private | | vehicle.[facility] will deliver ELECTRIC FAN ASSEMBLER pump to patient's home upon | | arrival: Demand Dose 0.8 mg, lockout 10 minutes, no 4 hour | | maximum. 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) | 07/24/2015 | + + + | Occlusion of ureter | 07/24/2015 | + + + | Hydronephrosis, right | 05/22/2015 | + + + | Right flank pain | 05/22/2015 | + + + | Morbid obesity with BMI of 40.0-44.9, adult (HCC) | 05/09/2015 | + + + | Hydronephrosis, bilateral | 05/09/2015 | + + + | Left flank pain | 07/19/2014 | + + + | Left upper quadrant pain | 07/19/2014 | + + + | Acute renal failure (HCC) | 11/18/2013 | + + + | Diarrhea | 11/18/2013 | + + + | Encephalopathy | 11/18/2013 | + + + | Injury of kidney | 11/18/2013 | + + + | Delirium | 11/18/2013 | + + + | Hypokalemia | 11/18/2013 | + + + | Hypothyroidism | 11/18/2013 | + + + | Metabolic acidosis, normal anion gap (NAG) | 11/18/2013 | + + + | Normocytic anemia | 11/18/2013 | + + + | Malignant neoplasm of colon (HCC) | 08/10/2013 | + + + | Lower urinary tract infectious disease | 08/10/2013 | + + + + + | Overview: Overview: | | Problem list district administrator utility | | | | Overview: | | Problem list district administrator utility | + + + + + | Open wound of anterior abdominal wall | 07/21/2013 | + + + | Status post ileostomy (HCC) | 07/02/2013 | + + + Encounters +--------+ + + + + | Date | Type | Specialty | Care Team | Description | +--------+ + + + + | 02/26/ | Refill | | Ron, | Medication Refill | | 2017 | | | Jagdeep Oh MD | | +--------+ + + + + | 02/23/ | Telephone | | Dangelo Sanders, | Appointment | 2017 | | | | | +--------+ + + + 02/17/ | Telephone | | Dangelo Sanders, | Lab Order | 2017 | | | | | +--------+ + + + + | 02/16/ | Telephone | | Ron, | Other | 2017 | | | Jagdeep Oh MD | | +--------+ + + + + | 01/19/ | Refill | | Ron, | Medication Refill | | 2017 | | | Jagdeep Oh MD | | +--------+ + + + + | 01/12/ | Telephone | | Dangelo Sanders | Appointment | 2017 | | | | | +--------+ + + + + | 12/25/ | Telephone | | James Velasquez Other | | 2017 | | | Jagdeep Oh MD | | +--------+ + + + + | 12/23/ | Telephone | | Ron | Other | | 2017 | | | Jagedep Oh MD | | +--------+ + + + + | 12/16/ | Telephone | | Ron, | Other | | 2017 | | | Jagdeep Oh MD | | +--------+ + + + + | 12/15/ | Telephone | | Ron | Other | | 2017 | | | Jagdeep Oh MD | | +--------+ + + + + | 12/15/ | Orders Only | | Ron, | Cystitis (Primary | | 2017 | | | Jagdeep Oh MD | Dx) | +--------+ + + + 12/12/ | Telephone | | Dangelo Sanders | Vomiting | | 2017 | | James DAMON | | +--------+ + + + + from Last 3 Months Family History + +------+ + + | Relation | Name | Status | Comments | + +------+ + + | Father | | | Aneurysm | | | | (Age | | | | | 65) | | + +------+ + + Social History + +-------+ +--------+------+ | Tobacco Use | Types | Packs/Day | Years | Date | | | | | Used | | + +-------+ +--------+------+ | Never Smoker | | | | | + +-------+ +--------+------+ + +---+---+---+ | Smokeless Tobacco: | | | | | Never Used | | | | + +---+---+---+ + + | Tobacco Cessation: Counseling Given: Yes | + + + + +---------+ + | Alcohol Use [...] + + + | Blood Pressure | 149/90 | 10/31/2017 0741 PDT | + + + + | Pulse | 70 | 10/31/2017856 PDT | + + + + | Temperature | 36.3 C (97.4 F) | 10/31/2017740 PDT | + + + + | Respiratory Rate | 16 | 10/31/2017856 PDT | + + + + | Oxygen Saturation | 95% | 10/31/2017856 PDT | + + + + | Inhaled Oxygen | - | - | | Concentration | | | + + + + | Weight | 100.2 kg (220 lb | 10/28/20172042 PDT | | | 14.4 oz) | | + + + + | Height | 162.6 cm (5' 4.02") | 10/28/20172042 PDT | + + + + | Body Mass Index | 37.9 | 10/28/20172042 PDT | + + + + Plan of Treatment +--------+---------+ + + + | Date | Type | Specialty | Care Team | Description | +--------+---------+ + + + | 03/31/ | Office | | Dangelo Sanders, | | | 2017 | Visit | | [address] , | | | | | | [address] [place] | | | | | | [place] [address] | | | | | | [phone] | | | | | | | | +--------+---------+ + + + + + + + + | Health Maintenance | Due Date | Last Done | Comments | + + + + + | Vaccine: | | | | | Dtap/Tdap/Td (1 - | 9 | | | | Tdap) | | | | + + + + + | Vaccine: | | | | | Pneumococcal 19-64 | 9 | | | | Highest Risk (1 of 3 | | | | | - PCV13) | | | | + + + + + | Vaccine: Influenza | | | | | (#1) | 8 | | | + + + + + Implants + +-------+--------+ +--------+--------+--------+ | Implanted | Type | Area | Manufacture | Device | Expira | Model | | | | | r | | tion | / | | | | | | Identi | Date | Serial | | | | | | fier | | / Lot | + +-------+--------+ +--------+--------+--------+ | Stent Uro Unvrs Sft 6fr 24cm | Stent | Right: | EMMANUEL | | 07/06/ | [id number] | | - Sn/AImplanted: Qty: 1 on | | | MEDICAL INC | | 2017 | /N/A | | 02/21/2016 by Dangelo Sanders | | Ureter | - EMMANUEL | | | /[id number] | | MD Irwin | | | | | | 45 | + +-------+--------+ +--------+--------+--------+ | Stent Uro Resonance Mtl 6fr | Stent | Right: | EMMANUEL | | 08/28/ | [id number] | | 26 - [id number]: Qty: | | | [employer] | | 2020 | /NA | | 1 on 08/28/2016 by Tommy, | | Ureter | - EMMANUEL | | | /[id number] | | Dangelo Gayle MD | | | | | | 717 | + +-------+--------+ +--------+--------+--------+ | Stent Uro Resonance Mtl 6fr | Stent | Right: | COOK | | 05/20/ | [id number] | | 26 - [id number]: Qty: | | | [employer]ICAL [employer] | | 2021 | / | | 1 on 08/20/2017 by Tommy, | | Ureter | - EMMANUEL | | | /[id number] | | Dangelo Gayle MD | | | | | | 287 | + +-------+--------+ +--------+--------+--------+ | Stent Uro Unvrs Sft 6fr 24cm | | Right: | COOK | | 04/23/ | [id number] | | - [id number]: Qty: 1 | | | [employer] | | 2016 | / | | on 05/09/2015 by Tommy, | | Ureter | - EMMANUEL | | | /[id number] | | Dangelo Gayle MD | | | | | | 18 | + +-------+--------+ +--------+--------+--------+ Procedures + +--------+ + + + | Procedure Name | Priori | Date/Time | Associated Diagnosis | Comments | | | ty | | | | + +--------+ + + + | LABS - EXTERNAL SCAN | | 01/08/2018 | | Results for this | | | | 0000 PDT | | procedure are in the | | | | | | results section. | + +--------+ + + + from Last 3 Months Results LABS - EXTERNAL SCAN (01/08/2018) + + + | Narrative | Performed At | + + + | Ordered by an | | | unspecified provider. | | + + + from Last 3 Months Insurance + +--------+ +--------+ +---------+ | Payer | Benefi | Subscriber | Type | Phone | Address | | | t Plan | ID | | | | | | / | | | | | | | Group | | | | | + +--------+ +--------+ +---------+ | MEDICARE | MEDICA | [id number] | Medica | [phone] | | | | RE | | re | [phone] | | | | PART A | | | | | | | AND B | | | | | + +--------+ +--------+ +---------+ | [employer]AN | MODA | [id number] | Medica | [id number] | | | MEDICAID HMO | HEALTH | | id | [id number] | | | | MDCD | | | | | | | [place]MO [place] | | | | | + +--------+ +--------+ +---------+ + +--------+ +--------+ + + | Guarantor Name | Accoun | Relation to | Date | Phone | Billing Address | | | t Type | Patient | of | | | | | | | | | | + +--------+ +--------+ + + | JESSICA PINO | Person | Self [birth year] | Home: | | | [address] | [address] | | 1971 | [phone] | [place] [address] | | | nehemiah | | | [phone] | | + +--------+ +--------+ + +
--- OUTSIDE RECORDS SUMMARY | ~2018-03-14 | XMS | Clinical Summary ---
Demographics + + + | Address | [address] | | | [place] [address] | + + + | Home Phone | | + + + | Preferred Language | Unknown | + + + | Marital Status | | + + + | Sikhism Affiliation | Unknown | + + + | Race | White | + + + | Ethnic Group | Not or | + + + Author + + + | Author | [facility] | + + + | Organization | [facility] | + + + | Address | Unknown | + + + | Phone | Unavailable | + + + Support + + + + + | Name | Relationship | Address | Phone | + + + + + | LAMINE PINO | ECON | [address] | | | | | [place] | | | | | [address] | | + + + + + Care Team Providers + +------+ + | Care Flight Engineer Inspector Name | Role | Phone | + +------+ + | Denny Noe DO | PP | Unavailable | + +------+ + Source Comments VALENTINO is fully live on both EpicCare Ambulatory and EpicCare InPatient.[facility] Allergies + + + + [...] | topical gel | | | | 11/21 | | e | | | | [...] Take 1 tablet by | | | 08/04 | | Activ | | mcg oral tablet | mouth once daily. | | | 09/23 | | e | | | | [...] | | | | (FLU SHOT) | 8 | | | + + + + + Results Not on filefrom Last 3 Months Insurance + +--------+ +--------+-------+---------+ | Payer | Benefi | Subscriber | Type | Phone | Address | | | t Plan | ID | | | | | | / | | | | | | | Group | | | | | + +--------+ +--------+-------+---------+ | IMPORT CLERK MEDICAID | IMPORT CLERK | xxxxxxxx | Medica | | | | | [place] | | id | | | | | [place] | | | | | + +--------+ +--------+-------+---------+ + +--------+ +--------+ + + | Guarantor Name | Accoun | Relation to | Date | Phone | Billing Address | | | t Type | Patient | of | | | | | | | | | | + +--------+ +--------+ + + | JESSICA PINO | Person | Self | [birth year] | Home: | [address] | | [place] | al[address] | | 1971 | [phone] | [place] [address] | | | nehemiah | | | [phone] | | + +--------+ +--------+ + +
--- OUTSIDE RECORDS SUMMARY | ~2018-03-14 | XMS | Encounter Summary ---
Demographics + + + | Address | [address] | | | [place] [address] | + + + | Home Phone | | + + + | Preferred Language | Unknown | + + + | Marital Status | | + + + | Confucianist Affiliation | 1041 | + + + | Race | Unknown | + + + | Ethnic Group | Unknown | + + + Author + + + | Author | [facility] | | | and [place] | + + + | Organization | [facility] | | | and [place] | [...] [place] | | | | | [address] | | + + + + + | Joey Pino | ECON | [address] | | | | | [place] | | | | | [address] | | + + + + + Care Team Providers + +------+ + | Care Vice President Of Development Name | Role | Phone | + [...] + + | 12/15/ | Telephone | [facility] | Ron | [facility] | | 2018 | | [facility] | Jagdeep Oh MD [address] | | | | [address] | | | | | [address] | [place] [address] | | | | | [place] [address] | [phone] | | | | | [phone] | | | +--------+ + + + [...] | | | | | [place] [address] | | | | | | [phone] | | | | | | | | +--------+---------+ + + + as of this encounter Visit Diagnoses Not on filein this encounter"
--- OUTSIDE RECORDS SUMMARY | ~2018-03-14 | XMS | Encounter Summary ---
Demographics + + + | Address | [address] | | | [place] [address] | + + + | Home Phone | | + + + | Preferred Language | Unknown | + + + | Marital Status | | + + + | Anabaptism Affiliation | 1041 | + + + | Race | Unknown | + + + | Ethnic Group | Unknown | + + + Author + + + | Author | [facility] | | | and [place] | + + + | Organization | [facility] | | | and [place] [...] [place] | | | | | [address] | | + + + + + | Joey Pino | ECON | [address] | | | | | [place] | | | | | [address] | | + + + + + Care Team Providers + +------+ + | Care Building And Grounds Supervisor Name | Role | Phone | + [...] + + | 12/23/ | Telephone | [facility] | Ron | [facility] | | 2018 | | [facility] | Jagdeep Oh MD [address] | | | | | [address] | [address] | | | | | [address] [place] | [place] [address] | | | | | [place] [address] | [phone] | | | | | [phone] | | | +--------+ + + + [...] | | | | | [place] [address] | | | | | | [phone] | | | | | | | | +--------+---------+ + + + as of this encounter Visit Diagnoses Not on filein this encounter"
--- OUTSIDE RECORDS SUMMARY | ~2018-03-14 | XMS | Encounter Summary ---
Demographics + + + | Address | [address] | | | [place] [address] | + + + | Home Phone | | + + + | Preferred Language | Unknown | + + + | Marital Status | | + + + | Baptist Affiliation | 1041 | + + + | Race | Unknown | + + + | Ethnic Group | Unknown | + + + Author + + + | Author | [facility] | | | and [place] | + + + | Organization | [facility] | | | and [place] [...] [place] | | | | | [address] | | + + + + + | Joey Pino | ECON | [address] | | | | | [place] | | | | | [address] | | + + + + + Care Team Providers + +------+ + | Care Music Video Director Name | Role | Phone | + [...] + + | 12/16/ | Telephone | [facility] | Ron | [facility] | | 2018 | | [facility] | Jagdeep Oh MD [address] | | | | | [address] | [address] | | | | | [address] [place] | [place] [address] | | | | | [place] [address] | [phone] | | | | | [phone] | | | +--------+ + + + [...] | | | | | [place] [address] | | | | | | [phone] | | | | | | | | +--------+---------+ + + + as of this encounter Visit Diagnoses Not on filein this encounter"
--- OUTSIDE RECORDS SUMMARY | ~2018-03-14 | XMS | Encounter Summary ---
Demographics + + + | Address | [address] | | | [place] [address] | + + + | Home Phone | | + + + | Preferred Language | Unknown | + + + | Marital Status | | + + + | Rastafarian Affiliation | 1041 | + + + | Race | Unknown | + + + | Ethnic Group | Unknown | + + + Author + + + | Author | [facility] | | | and [place] | + + + | Organization | [facility] | | | and [...] [place] | | | | | [address] | | + + + + + | Joey Pino | ECON | [address] | | | | | [place] | | | | | [address] | | + + + + + Care Team Providers + +------+ + | Care Food Beverage Supervisor Name | Role | Phone | [...] + + | 12/25/ | Telephone | [facility] | Ron | [facility] | | 2018 | | [facility] | Jagdeep Oh MD [address] | | | | | [address] | [address] | | | | | [address] [place] | [place] [address] | | | | | [place] [address] | [phone] | | | | | [phone] | | | +--------+ + + + [...] , | | | | | | [address] | | | | | | [place] [address] | | | | | | [phone] | | | | | | | | +--------+---------+ + + + as of this encounter Visit Diagnoses Not on filein this encounter"
--- OUTSIDE RECORDS SUMMARY | ~2018-03-14 | XMS | Encounter Summary ---
Demographics + + + | Address | [address] | | | [place] [address] | + + + | Home Phone | | + + + | Preferred Language | Unknown | + + + | Marital Status | | + + + | Samaritan Affiliation | 1041 | + + + | Race | Unknown | + + + | Ethnic Group | Unknown | + + + Author + + + | Author | [facility] | | | and P[place] | + + + | Organization | [facility] | | | and [...] [place] | | | | | [address] | | + + + + + | Joey Pino | ECON | [address] | | | | | [place] | | | | | [address] | | + + + + + Care Team Providers + +------+ + | Care Vertical Roll Operator Name | Role | Phone | [...] [place] | | | | | [address] [place] | [place] [address] | | | | | [place] [address] | [phone] | | | | | [phone] | | | +--------+ + + + [...] | | | | | [place] [address] | | | | | | [phone] | | | | | | | | +--------+---------+ + + + as of this encounter Visit Diagnoses Not on filein this encounter"
[2018-03-14] MEDS ORDERED: POTASSIUM CHLO20 ME1 PO (13:52)
[2018-03-14] MEDS ORDERED: CIPRO250 MG PO (15:15)
== END 2018-03-14 17:45 | disposition home or self-care (01) ==
LOC: ED 13:42
PROC: 0T9B70Z Drainage of Bladder with Drainage Device, Via Natural or Artificial Opening (ICD-10-PCS; principal; 2018-03-14)
DX: N39.0 Urinary tract infection, site not specified (principal); F32.9 Major depressive disorder, single episode, unspecified; Z88.2 Allergy status to sulfonamides; Z88.8 Allergy status to other drugs, medicaments and biological substances; Z88.0 Allergy status to penicillin; Z88.5 Allergy status to narcotic agent; Z88.1 Allergy status to other antibiotic agents; Z79.899 Other long term (current) drug therapy
CPT/HCPCS: 51701; 81001; 87077; 87088; 87186; 96361; 96374; 96375; 99283; J0744; J1170; J2405; J7030

== ENCOUNTER 2018-04-19 17:00 | Emergency (ER) | payer MEDICARE, OTHER ==
[~2018-04-19] VITALS: Ht 162.6 cm; Wt 78.8 kg
--- OUTSIDE RECORDS SUMMARY | ~2018-04-19 | XMS | Encounter Summary ---
Demographics + + + | Address | [address] | | | [place] [address] | + + + | Home Phone | | + + + | Preferred Language | Unknown | + + + | Marital Status | | + + + | Lutheran Affiliation | 1041 | + + + | Race | Unknown | + + + | Ethnic Group | Unknown | + + + Author + + + | Author | [facility] | | | and P[place] | + + + | Organization | [facility] | | | and [place] | + + + | Address | Unknown | + + + | Phone | Unavailable | + + + Support + + + + + | Name | Relationship | Address | Phone | + + + + + | Rocael Pino | ECON | [address] | | | | | [place] | | | | | [address] | | + + + + + | Joey Pino | ECON | [address] | | | | | [place] | | | | | [address] | | + + + + + Care Team Providers + +------+ + | Care Computer Systems Hardware Analyst Name | Role | Phone | + +------+ + | Jagdeep Velasquez MD | PCP | Unavailable | + +------+ + Reason for Visit + + + | Reason | Comments | + + + | Medication Refill | | + + + Encounter Details +--------+--------+ + + + | Date | Type | Department | Care Team | Description | +--------+--------+ + + + | 04/01/ | Refill | [facility] | Ron, | Medication Refill | | 2017 | | MED [facility] | Jagdeep Oh MD [address] | | | | [address] [place] | | | | | [address] [place] | [place] [address] | | | | | [place] [address] | [phone] | | | | | [phone] | | | +--------+--------+ + + + Social History + +-------+ +--------+------+ | Tobacco Use | Types | Packs/Day | Years | Date | | | | | Used | | + +-------+ +--------+------+ | Never Smoker | | | | | + +-------+ +--------+------+ + +---+---+---+ | Smokeless Tobacco: | | | | | Never Used | | | | + +---+---+---+ + + +---------+ + | Alcohol Use | Drinks/We | oz/Week | Comments | | | ek | | | + + +---------+ + | No | 0 | 0.0 | | | | Standard | | | | | drinks or | | | | | | | | | | equivalen | | | | | t | | | + + +---------+ + + + + | Sex Assigned at | Date Recorded | | | | + + + | Not on file | | + + + as of this encounter Functional Status + + + + | Functional Status | Response | Date of Assessment | + + + + | Are you deaf or do you have serious | No | 05/22/2015 | | difficulty hearing? | | | + + + + | Are you blind or do you have serious | No | 05/22/2015 | | difficulty seeing, even when wearing | | | | glasses? | | | + + + + | Do you have serious difficulty walking or | No | 05/22/2015 | | climbing stairs? (5 years old or older) | | | + + + + | Do you have difficulty dressing or bathing? | No | 05/22/2015 | | (5 years old or older) | | | + + + + | Because of a physical, mental, or emotional | No | 05/22/2015 | | condition, do you have difficulty doing | | | | errands alone such as visiting a doctor's | | | | office or shopping? [15 years old or | | | | older)] | | | + + + + + + + + | Cognitive Status | Response | Date of Assessment | + + + + | Because of a physical, mental, or emotional | No | 05/22/2015 | | condition, do you have serious difficulty | | | | concentrating, remembering, or making | | | | decisions? (5 years old or older) | | | + + + + as of this encounter Plan of Treatment +--------+---------+ + + + | Date | Type | Specialty | Care Team | Description | +--------+---------+ + + + | 04/30/ | Office | Urology | Dangelo Sanders, | | | 2017 | Visit | | MD Ambriz [address] , | | | | | | [place] | | | | | | [place] [address] | | | | | | [phone] | | | | | | | | +--------+---------+ + + + as of this encounter Visit Diagnoses Not on filein this encounter"
--- OUTSIDE RECORDS SUMMARY | ~2018-04-19 | XMS | Encounter Summary ---
Demographics + + + | Address | [address] | | | [place] [address] | + + + | Home Phone | | + + + | Preferred Language | Unknown | + + + | Marital Status | | + + + | Hinduism Affiliation | 1041 | + + + | Race | Unknown | + + + | Ethnic Group | Unknown | + + + Author + + + | Author | [facility] | | | and Piotr[place] | + + + | Organization | [facility] | | | and [place] [...] [place] | | | | | [address] | | + + + + + | Joey Pino | ECON | [address] | | | | | [place] | | | | | [address] | | + + + + + Care Team Providers + +------+ + | Care Software Support Engineer Name | Role | Phone | + +------+ + | Jagdeep Velasquez MD | PCP | Unavailable | + +------+ + Reason for Visit +--------+ + | Reason | Comments | +--------+ + | Other | | +--------+ + Encounter Details +--------+ + + + + | Date | Type | Department | Care Team | Description | +--------+ + + + + | 04/09/ | Telephone | [facility] | Ron | S[facility] | | 2018 | | [facility] | Jagdeep Oh MD [address] | | | | | [address] | | | | | [address] [place] | [place] [address] | | | | | [place] [address] | [phone] | | | | | [phone] | | | +--------+ + + + + Social History + +-------+ [...] | 2017 | Visit | | MD Katina GUTIÉRREZ, | | | | | | [place] | | | | | | [place] [address] | | | | | | [phone] | | | | | | | | +--------+---------+ + + + as of this encounter Visit Diagnoses Not on filein this encounter"
--- OUTSIDE RECORDS SUMMARY | ~2018-04-19 | XMS | Encounter Summary ---
Demographics + + + | Address | [address] | | | [place] [address] | + + + | Home Phone | | + + + | Preferred Language | Unknown | + + + | Marital Status | | + + + | Sabianist Affiliation | 1041 | + + + | Race | Unknown | + + + | Ethnic Group | Unknown | + + + Author + + + | Author | [facility] | | | and P[place] | + + + | Organization | [facility] | | | and [place] [...] [place] | | | | | [address] | | + + + + + | Joey Pino | ECON | [address] | | | | | [place] | | | | | [address] | | + + + + + Care Team Providers + +------+ + | Care Service Delivery Manager Name | Role | Phone | + [...] | +--------+ + + + + | 02/16/ | Telephone | [facility] | Ron | S[facility]vant[facility] | | 2018 | | [facility] | Jagdeep Oh MD [address] | | | | | [address] | | | | | [address] [place] | [place] [address] | | | | | [place] [address] | [phone] | | | | | [phone] | | | +--------+ + + + [...] | | | | | [place] [address] | | | | | | [phone] | | | | | | | | +--------+---------+ + + + as of this encounter Visit Diagnoses Not on filein this encounter"
--- OUTSIDE RECORDS SUMMARY | ~2018-04-19 | XMS | Encounter Summary ---
Demographics + + + | Address | [address] | | | [place] [address] | + + + | Home Phone | | + + + | Preferred Language | Unknown | + + + | Marital Status | | + + + | Taoist Affiliation | 1041 | + + + | Race | Unknown | + + + | Ethnic Group | Unknown | + + + Author + + + | Author | [facility] | | | and P[place] | + + + | Organization | [facility] | | | and [place] [...] [place] | | | | | [address] | | + + + + + | Joey Pino | ECON | [address] | | | | | [place] | | | | | [address] | | + + + + + Care Team Providers + +------+ + | Care Canal Lock Tender Chief Operator Name | Role | Phone | [...] Description | +--------+--------+ + + + | 03/20/ | Refill | [facility] | Dangelo Sanders, | Medication Refill | | 2018 | | [address] | MD [address], | | | | | [address] [place] | [address] [place] | | | | | [place] [address] | [place] [address] | | | | | [phone] | [phone] | | | | | | | | +--------+--------+ + + + [...] 2017 | Visit | | MD Katina BLACKBURN , | | | | | | [place] | | | | | | [place] [address] | | | | | | [phone] | | | | | | | | +--------+---------+ + + + as of this encounter Visit Diagnoses Not on filein this encounter"
--- OUTSIDE RECORDS SUMMARY | ~2018-04-19 | XMS | Encounter Summary ---
Demographics + + + | Address | [address] | | | [place] [address] | + + + | Home Phone | | + + + | Preferred Language | Unknown | + + + | Marital Status | | + + + | Orthodox Affiliation | 1041 | + + + | Race | Unknown | + + + | Ethnic Group | Unknown | + + + Author + + + | Author | [facility] | | | and [place] | + + + | Organization | [facility] | | | and [place] | + + + | Address | Unknown | + + + | Phone | Unavailable | + + + Support + + + + + | Name | Relationship | Address | Phone | + + + + + | Rocael iPno | ECON | [address] | | | | | [place] | | | | | [address] | | + + + + + | Joey Pino | ECON | [address] | | | | | [place] | | | | | [address] | | + + + + + Care Team Providers + +------+ + | Care Plant Custodian Name | Role | Phone | + [...] + + | 01/19/ | Refill | [facility] | Ron, | Medication Refill | | 2017 | | MED [facility] | Jagdeep Oh MD [address] | | | | | [address] | | | | | [address] | [place] [address] | | | | | [place] [address] | [phone] | | | | | [phone] | | | +--------+--------+ + + + [...] | | 2017 | Visit | | [address] [facility], | | | | | | [facility] [address] 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
--- OUTSIDE RECORDS SUMMARY | ~2018-04-19 | XMS | Encounter Summary ---
Demographics + + + | Address | [address] | | | [place] [address] | + + + | Home Phone | | + + + | Preferred Language | Unknown | + + + | Marital Status | | + + + | Quaker Affiliation | 1041 | + + + | Race | Unknown | + + + | Ethnic Group | Unknown | + + + Author + + + | Author | [facility] | | | and [place] | + + + | Organization | [facility] | | | and [...] [place] | | | | | [address] | | + + + + + | Joey Pino | ECON | [address] | | | | | [place] | | | | | [address] | | + + + + + Care Team Providers + +------+ + | Care Transfer Worker Name | Role | Phone | + [...] + + | 02/26/ | Refill | [facility] | Ron, | Medication Refill | | 2017 | | MED [facility] | Jagdeep Oh MD [address] | | | | | [address] | | | | | [address] [place] [address] | [place] [address] | | | | | [place] [address] | [phone] | | | | | [phone] | | | +--------+--------+ + + + [...] | Visit | | [address] [facility], | | | | | | [facility] [address] [facility] | | | | | | [place] [address] | | | | | | [phone] | | | | | | | | +--------+---------+ + + + as of this encounter Visit Diagnoses + + | Diagnosis | + + | 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
--- OUTSIDE RECORDS SUMMARY | ~2018-04-19 | XMS | Encounter Summary ---
Demographics + + + | Address | [address] | | | [place] [address] | + + + | Home Phone | | + + + | Preferred Language | Unknown | + + + | Marital Status | | + + + | Mormonism Affiliation | 1041 | + + + | Race | Unknown | + + + | Ethnic Group | Unknown | + + + Author + + + | Author | [facility] | | | and [place] | + + + | Organization | [facility] | | | and [place] [...] [place] | | | | | [address] | | + + + + + | Joey Pino | ECON | [address] | | | | | [place] | | | | | [address] | | + + + + + Care Team Providers + +------+ + | Care Home Care Manager Name | Role | Phone | [...] + + | 02/17/ | Telephone | [facility] [place] | Dangelo Sanders, | Lab Order | | 2017 | | [address] | MD [address], | | | | | [address] [place] | [address] [place] | | | | | [place] [address] | [place] [address] | | | | | [phone] | [phone] | | | | | | | [...] | | | | | [place] [address] | | | | | | [phone] | | | | | | | | +--------+---------+ + + + as of this encounter Visit Diagnoses Not on filein this encounter"
--- OUTSIDE RECORDS SUMMARY | ~2018-04-19 | XMS | Encounter Summary ---
Demographics + + + | Address | [address] | | | [place] [address] | + + + | Home Phone | | + + + | Preferred Language | Unknown | + + + | Marital Status | | + + + | Sikh Affiliation | 1041 | + + + | Race | Unknown | + + + | Ethnic Group | Unknown | + + + Author + + + | Author | [facility] | | | and [place] | + + + | Organization | [facility] | | | and [place] [...] [place] | | | | | [address] | | + + + + + | Joey Pino | ECON | [address] | | | | | [place] | | | | | [address] | | + + + + + Care Team Providers + +------+ + | Care It Application Development Manager Name | Role | Phone | [...] [place] | | | | | [address] [place] | [place] [address] | | | | | [place] [address] | [phone] | | | | | [phone] | | | +--------+ + + + [...] | | | | | [place] [address] | | | | | | [phone] | | | | | | | | +--------+---------+ + + + as of this encounter Visit Diagnoses Not on filein this encounter"
--- OUTSIDE RECORDS SUMMARY | ~2018-04-19 | XMS | Clinical Summary ---
Demographics + + + | Address | [address] | | | [place] [address] | + + + | Home Phone | | + + + | Preferred Language | Unknown | + + + | Marital Status | | + + + | Denominational Affiliation | 1041 | + + + | Race | Unknown | + + + | Ethnic Group | Unknown | + + + Author + + + | Author | [facility] | | | and [place] | + + + | Organization | [facility] | | | and [place] [...] [place] | | | | | [address] | | + + + + + | Joey Pino | ECON | [address] | | | | | [place] | | | | | [address] | | + + + + + Care Team Providers + +------+ + | Care Dry Kiln Loader Name | Role | Phone | + [...] | Other (See Comments) | Low | 07/12/20 | Hallucination | | | | | [...] + + + +---------+------+------+-------+ | oxybutynin | TAKE 1 TABLET BY | 30 | 3 | 08/2 | | Activ | | (DITROPAN XL) 5 mg | MOUTH DAILY | tablet | | 4/20 | | e | | 24 hr tablet | NEEDED FOR BLADDER | | | 18 | | | | | SPASM | | | | | | + + + +---------+------+------+-------+ | PREMARIN 0.9 MG | TAKE 1 TABLET BY | 30 | 0 | 08/2 | | Activ | | tablet | MOUTH EVERY DAY | tablet | | 9/20 | | e | | | | | | 18 | | | + + + +---------+------+------+-------+ | oxybutynin | Take 5 mg by mouth | | | | 08/2 | Disco | | (DITROPAN XL) 5 mg | Daily as needed for | | | | 4/20 | ntinu | | 24 hr tablet | Bladder Spasms. 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 | + + + + + | [...] + + + | Overview: BRIANDA 08/20/17 Lili/[facility] Adenocarcinoma, | | consistent with [...] by Dr. Jhoana Avila at | | [facility] in 2012. Because of her | [...] lesions. Despite additional chemotherapy | | at [facility], her metastatic/recurrent disease did not respond | [...] | resected on 08/20/2017. Pathological specimen # [id number] | | "adenocarcinoma, consistent with metastatic colorectal cancer." | | Last Assessment & Plan: Jessica Pino was last treated | | for metastatic colon cancer on July 01, 2016. Since then she | | has been on palliative care, most recently with oxycodone IR 20 | | mg dispense #250 for 30 days. Her most recent waiyuc-py-jukjzza | | evaluation was with a CT scan of the abdomen and pelvis without | | contrast on June 24, 2016 at in | | [facility] which demonstrated multiple ill-defined [...] reached; pain is under control with dilaudid HOOD MAKER, 0.8 mg | | demand only , with 10 minute lockout. She remains nauseated and | | continues to have emesis.Hospice admission to [facility] | | [facility] has been approved by their medical equipment repair technician, | | Dr. Scott Epstein. Jessica Pino signed a pain | | contract with [facility] at the request | | of their medical equipment repair technician, Dr. Scott Epstein.Patient will be | | discharged today with her port-a-cath stably accessed for home | | use.She will receive a single dose of dilaudid, 2 mg iv | | immediately prior to discharge to control her malignant neoplasm | | related pain needs until she gets home to [place] by private | | vehicle.[employer] will deliver HOOD MAKER pump to patient's home upon | | [...] | Overview: Overview: | | Problem list grounds maintenance supervisor utility | | | | Overview: | | Problem list grounds maintenance supervisor utility | + + + + + | Open wound of anterior abdominal wall | 07/21/2013 | + + + | Status post ileostomy (HCC) | 07/02/2013 | + + + Encounters +--------+ + + + + | Date | Type | Specialty | Care Team | Description | +--------+ + + + + | 04/14/ | Telephone | | Ron, | Other | | 2017 | | | Jagdeep Oh MD | | +--------+ + + + + | 04/12/ | Hospital | | Yolanda Fritz MD | Sepsis due to | | 2018 | Encounter | | | urinary tract | | | | | | infection (HCC); CRISTIAN | | | | | | (acute kidney | | | | | | injury) (HCC); | | | | | | Metastatic colon | | | | | | cancer in female | | | | | | (HCC); Hx of | | | | | | nephrostomy (HCC) | +--------+ + + + + +---+ + | | Discharge | | | Summaries | | | - Ana Luisa, | | | Suki | | | MD Dwight - | | | 04/12/2018 | | | 2140 PDT | | | Formatting | | | of this | | | note may be | | | different | | | from the | | | original.[place] | | | [facility] | | | [facility] | | [facility] | | | DISCHARGE | | | SUMMARYPt. | | | Name/Age/DO | | | B: Jessica | | | Coco | | | Pino | | | 47 y.o. | | | 1970 | | | | | | Medical | | | Record | | | Number: | | | | | | [id number] | | | Date of | | | Admission: | | | 04/12/2018 | | | Date | | | of | | | Discharge: | | | Left AMA | | | on | | | 04/12/2018Adm | | | itting | | | Physician: | | | Yolanda | | | MD Lam | | | Primary | | | Care | | | Provider: | | | Jagdeep C. | | | Ron | | | , | | | MDDischargi | | | ng | | | Physician: | | | Suki | | | O. Ahmed, | | | MD | | | DISCHARGE | | | DIAGNOSES: | | | Active | | | Hospital | | | Problems | | | Diagnosis | | | | | | Sepsis | | | due to | | | urinary | | | tract | | | infection | | | | | | CRISTIAN | | | (acute | | | kidney | | | injury) | | | | | | Metastatic | | | colon | | | cancer in | | | female | | | Hx of | | | nephrostomy | | | Resolved | | | Hospital | | | Problems | | | Diagnosis | | | No resolved | | | problems | | | to display. | | | DISCHARGE | | | MEDICATIONS | | | : Left | | | [facility] | | | COURSE: | | | Please | | | refer to | | | the H&P for | | | full | | | details and | | | the most | | | recent | | | rounding | | | rounding | | | (progress) | | | note.Admiss | | | ion HPI: | | | 47yoF w/ | | | metastatic | | | colon ca | | | (w/ diffuse | | | mets | | | involving | | | lung, | | | liver, | | | bowel/perit | | | osei, | | | uretetrs), | | | s/p chemo | | | and | | | colectomy, | | | previous | | | urinary | | | obstruction | | | requiring | | | stent | | | placements, | | | who | | | presented | | | [facility] | [facility] with | | | acute on | | | chronic | | | nausea and | | | vomiting. | | | They were | | | planning to | | | discharge | | | her from | | | the ER | | | after | | | providing | | | symptom | | | relief and | | | hydration, | | | but then | | | patient | | | spiked a | | | fever to | | | 102F. Her | | | urinalysis | | | is | | | indicative | | | of | | | infection, | | | and she was | | | started on | | | | | | ceftriaxone | | | . A CT was | | | performed | | | to make | | | sure there | | | were no | | | further | | | ureteral | | | obstruction | | | s, and this | | | was | | | unremarkabl | | | e. The | | | hospitalist | | | at their | | | facility | | | did not | | | feel | | | comfortable | | | with the | | | patient due | | | to her | | | complexity, | | | and | | | patient | | | wanted to | | | come here | | | since her | | | treatment | | | team is | | | here and | | | she was | | | supposed to | | | [facility] | [facility] | | | [facility] soon. | | | Pt was | | | started on | | | Rocephin | | | for Sepsis | | | likely 2/2 | | | urinary | | | source. Pt | | | was unhappy | | | with | | | nursing and | | | wanted to | | | leave AMA | | | because she | | | wanted her | | | pain meds | | | and nausea | | | meds | | | whenever | | | she wants | | | and not as | | | ordered. Pt | | | was on a | | | Fentanyl | | | patch 75 | | | mcg, | | | Oxycontin | | | 40 mg BID, | | | Dilaudid IV | | | 0.5-1.5 Q | | | 2 hrs prn, | | | Roxicodone | | | 5-20mg Q 3 | | | hr prn, | | | Zofran 4 mg | | | IV Q 4 hr | | | prn and | | | Phenergan | | | 6.25 mg IV | | | Q 6 hr prn. | | | Pt wanted | | | IV Zofran | | | to be given | | | to her | | | every 1-2 | | | hours. I | | | explained | | | the risk of | | | | | | arrhythmias | | | and other | | | serious | | | side | | | effects to | | | which | | | patient | | | said I take | | | It every | | | 2 hours at | | | home. Pt | | | started | | | using | | | abusive | | | words | | | directed to | | | her nurse | | | and decided | | | to leave | | | AMA. Most | | | recent | | | weight: | | | Input and | | | output for | | | last 24hrs: | | | Wt | | | Readings | | | from Last 1 | | | | | | Encounters: | | | 04/12/18 | | | 79.6 kg | | | (175 lb 7.8 | | | oz) I/O | | | last 24 | | | Hours:In: | | | 200 | | | [P.O.:200]O | | | ut: 230 | | | [Urine:230] | | | Vitals | | | Ranges: | | | Vitals:Temp | | | : 37.7 C | | | (99.9 F) | | | BP: | | | 100/65 | | | Pulse: | | | 98 | | | Resp: 18 | | | SpO2: 91 | | | %SpO2 91 % | | | on nasal | | | cannula at | | | flow rate | | | 2L/minPHYSI | | | GREG EXAM: | | | Left | | | AMAPROCEDUR | | | ES AND | | | CONSULTS: | | | Procedures | | | noneConsult | | | s | | | nonePENDING | | | RESULTS: | | | noneDISPOSI | | | TION AND | | | DISCHARGE | | | INSTRUCTION | | | S: | | | Follow-up | | | Information | | | Jagdeep | | | C. | | | Ron | | | , . | | | Specialty: | | | Medical | | | OncologyCon | | | tact | | | information | | | :[address] | [address], [place] | | | [address] | | | [place] [address] | | | | | | Electronica | | | lly signed | | | by: | | | Suki O. | | | MD Ana Luisa, | | | 04/14/2018 | | | 21:41 | | | [facility] | | | [place] | | | Medical | | | [facility] | | | ons of this | | | chart may | | | have been | | | created | | | with Dragon | | | voice | | | recognition | | | software. | | | Occasional | | | wrong-word | | | or | | | | | | sound-alike | | | | | | | | | substitutio | | | ns may have | | | occurred | | | due to the | | | inherent | | | limitations | | | of voice | | | recognition | | | software. | | | Please read | | | the chart | | | carefully | | | and | | | recognize, | | | using | | | context, | | | where these | | | | | | substitutio | | | ns have | | | occurred | +---+ + +--------+ +---+ + + | 04/09/ | Telephone | | Ron, | Other | | 2017 | | | Jagdeep Oh MD | | +--------+ +---+ + + | 04/09/ | Telephone | | Ron | Other | | 2017 | | | Jagdeep Oh MD | | +--------+ +---+ + + | 04/01/ | Refill | | oRn, | Medication Refill | 2017 | | | Jagdeep Oh MD | | +--------+ +---+ + + 03/30/ | Telephone | | Dangelo Sanders, | Other (Re: appt | 2017 | | | | tomorrow) | +--------+ +---+ + + | 03/20/ | Refill | | Dangelo Sanders, | Medication Refill | 2017 | | | | | +--------+ +---+ + + | 03/19/ | Telephone | | Ron | Other | | 2017 | | | Jagdeep Oh MD | | +--------+ +---+ + + | 03/18/ | Telephone | | Dangelo Sanders, | Other (PEG tube | 2017 | | | | plugged) | +--------+ +---+ + + | 02/26/ | Refill | | Ron, | Medication Refill | 2017 | | | Jagdeep Oh MD | | +--------+ +---+ + + | 02/23/ | Telephone | | Dangelo Sanders, | Appointment | 2017 | | | | | +--------+ +---+ + + | 02/17/ | Telephone | Dangelo Winslow, | Lab Order | 2017 | | | | | +--------+ +---+ + + | 02/16/ | Telephone | | Ron, | Other | | 2017 | | | Jagdeep Oh MD | | +--------+ +---+ + + | 01/19/ | Refill | | Ron, | Medication Refill | | 2017 | | | Jagdeep Oh MD | | +--------+ +---+ + + from Last 3 Months Family [...] + + + | Blood Pressure | 100/65 | 04/12/20181221 PDT | + + + + | Pulse | 98 | 04/12/20181221 PDT | + + + + | Temperature | 37.7 C (99.9 F) | 04/12/20181221 PDT | + + + + | Respiratory Rate | 18 | 04/12/20181221 PDT | + + + + | Oxygen Saturation | 91% | 04/12/20181221 PDT | + + + + | Inhaled Oxygen | - | - | | Concentration | | | + + + + | Weight | 79.6 kg (175 lb 7.8 | 04/12/2018452 PDT | | | oz) | | + + + + | Height | 162.6 cm (5' 4") | 04/12/2018452 PDT | + + + + | Body Mass Index | 30.12 | 04/12/2018452 PDT | + + + + Plan of Treatment +--------+---------+ + + + | Date | Type | Specialty | Care Team | Description | +--------+---------+ + + + | 04/30/ | Office | | Dangelo Sanders, | | | 2017 | Visit | | [address] [facility], | | | | | | [place] [address] [facility] | | | | | | [place] [address] | | | | | | [phone] | | | | | | | [...] 24cm | Stent | Right: | EMMANUEL BENITEZ | | 07/06/ | [id number] | | - Sn/AImplanted: Qty: 1 on | | | INCORPORATE | | 2017 | /N/A | | 02/21/2016 by Dangelo Sanders | | Ureter | D | | | /[id number] | | MD Irwin | | | | | | 45 | + +-------+--------+ +--------+--------+--------+ | Stent Uro Resonance Mtl 6fr | Stent | Right: | EMMANUEL BENITEZ | | 08/28/ | [id number] | | 26 - [id number]: Qty: | | | INCORPORATE | | 2020 | /NA | | 1 on 08/28/2016 by Tommy, | | Ureter | D | | | /[id number] | | Dangelo Gayle MD | | | | | | 717 | + +-------+--------+ +--------+--------+--------+ | Stent Uro Resonance Mtl 6fr | Stent | Right: | EMMANUEL BENITEZ | | 05/20/ | [id number] | | 26 - [id number]: Qty: | | | INCORPORATE | | 2021 | / | | 1 on 08/20/2017 by Tommy, | | Ureter | D | | | /[id number] | | Dangelo Gayle MD | | | | | | 287 | + +-------+--------+ +--------+--------+--------+ | Stent Uro Unvrs Sft 6fr 24cm | | Right: | EMMANUEL BENITEZ | | 04/23/ | [id number] | | - [id number]: Qty: 1 | | | INCORPORATE | | 2016 | / | | on 05/09/2015 by Tommy, | | Ureter | D | | | /[id number] | | Dangelo Gayle MD | | | | | | 18 | + +-------+--------+ +--------+--------+--------+ Procedures + +--------+ + + + | Procedure Name | Priori | Date/Time | Associated Diagnosis | Comments | | | ty | | | | + +--------+ + + + | BLOOD CULTURE GM | Routin | 04/12/2018 | | Results for this | | NEGATIVE PATHOGEN | e | 0459 PDT | | procedure are in the | | PANEL, PCR | | | | results section. | + +--------+ + + + | CULTURE, BLOOD | Routin | 04/12/2018 | | Results for this | | | e | 0459 PDT | | procedure are in the | | | | | | results section. | + +--------+ + + + | BLOOD CULTURE GM | Routin | 04/12/2018 | | Results for this | | NEGATIVE PATHOGEN | e | 0446 PDT | | procedure are in the | | PANEL, PCR | | | | results section. | + +--------+ + + + | CULTURE, BLOOD | Routin | 04/12/2018 | | Results for this | | | e | 0446 PDT | | procedure are in the | | | | | | results section. | + +--------+ + + + | CREATININE, URINE, | Routin | 04/12/2018 | | Results for this | | RANDOM | e | 0424 PDT | | procedure are in the | | | | | | results section. | + +--------+ + + + | SODIUM, URINE, | Routin | 04/12/2018 | | Results for this | | RANDOM | e | 0424 PDT | | procedure are in the | | | | | | results section. | + +--------+ + + + | URINALYSIS WITH | Routin | 04/12/2018 | | Results for this | | MICROSCOPIC WITH | e | 0424 PDT | | procedure are in the | | CULTURE IF INDICATED | | | | results section. | + +--------+ + + + | PROCALCITONIN, SERUM | Routin | 04/12/2018 | | Results for this | | | e | 0421 PDT | | procedure are in the | | | | | | results section. | + +--------+ + + + | LACTIC ACID | Routin | 04/12/2018 | | Results for this | | | e | 0421 PDT | | procedure are in the | | | | | | results section. | + +--------+ + + + | MAGNESIUM | Routin | 04/12/2018 | | Results for this | | | e | 0421 PDT | | procedure are in the | | | | | | results section. | + +--------+ + + + | COMPREHENSIVE | Routin | 04/12/2018 | | Results for this | | METABOLIC PANEL | e | 0421 PDT | | procedure are in the | | | | | | results section. | + +--------+ + + + | CBC WITH | Routin | 04/12/2018 | | Results for this | | DIFFERENTIAL | e | 0421 PDT | | procedure are in the | | | | | | results section. | + +--------+ + + + | IMAGING REPORT - | | 04/11/2018 | | Results for this | | EXTERNAL SCAN | | 0000 PDT | | procedure are in the | | | | | | results section. | + +--------+ + + + from Last 3 Months Results Blood Culture GN Panel, PCR (04/12/2018 0459)Only the most recent of 2 results within the t solis period is included. + + + + + | Component | Value | Ref Range | Performed At | + + + + + | Escherichia coli, | Not Detected | Not Detected | [facility] | | DNA | | | [facility] | | | | | [facility] - | | | | | LABORATORY | + + + + + | Pseudomonas | Not Detected | Not Detected | [facility] | | aeruginosa, DNA | | | [facility] | | | | | [facility] - | | | | | LABORATORY | + + + + + | Klebsiella | Not Detected | Not Detected | [facility] | | pneumoniae, DNA | | | [facility] | | | | | [facility] - | | | | | LABORATORY | + + + + + | Klebsiella oxytoca, | Not Detected | Not Detected | [facility] | | DNA | | | [facility] | | | | | [facility] - | | | | | LABORATORY | + + + + + | CTX-M (ESBL | Not Detected | Not Detected | [facility] | | resistance gene), | | | [facility] | | DNA | | | CENTER - | | | | | LABORATORY | + + + + + | Enterobacter | Not Detected | Not Detected | [facility] | | species, DNA | | | [facility] | | | | | [facility] - | | | | | LABORATORY | + + + + + | Proteus species, DNA | Not Detected | Not Detected | [facility] | | | | | [facility] | | | | | [facility] - | | | | | LABORATORY | + + + + + | Acinetobacter | Not Detected | Not Detected | [facility] | | species, DNA | | | [facility] | | | | | [facility] - | | | | | LABORATORY | + + + + + | Citrobacter species, | Not Detected | Not Detected | [facility] | | DNA | | | [facility] | | | | | [facility] - | | | | | LABORATORY | + + + + + | OXA (CRE resistance | Not Detected | Not Detected | [facility] | | gene), DNA | | | [facility] | | | | | [facility] - | | | | | LABORATORY | + + + + + | IMP (CRE resistance | Not Detected | Not Detected | [facility] | | gene), DNA | | | [facility] | | | | | [facility] - | | | | | LABORATORY | + + + + + | KPC (CRE resistance | Not Detected | Not Detected | [facility] | | gene), DNA | | | [facility] | | | | | [facility] - | | | | | LABORATORY | + + + + + | VIM (CRE resistance | Not Detected | Not Detected | [facility] | | gene), DNA | | | [facility] | | | | | [facility] - | | | | | LABORATORY | + + + + + | NDM (CRE resistance | Not Detected | Not Detected | [facility] | | gene), DNA | | | [facility] | | | | | [facility] - | | | | | LABORATORY | + + + + + + + | Specimen | + + | Blood - Peripheral | | Blood | + + + + + | Narrative | Performed At | + + + | Molecular results to be confirmed by conventional methods | [facility] | | | [facility] | | | - LABORATORY | + + + + + + + + | Performing | Address | City/State/Zipcode | Phone Number | | Organization | | | | + + + + + | [facility] | [address] | [place] | [phone] | | [facility] | | [address] | | | - LABORATORY | | | | + + + + + | [facility] | [address] | [place], [place] | | | [facility] | | [address] | | | - LABORATORY | | | | + + + + + Culture, Blood (04/12/2018 1880)Only the most recent of 2 results within the time period is included. + + + + + | Component | Value | Ref Range | Performed At | + + + + + | Culture | Positive Blood Culture | | [facility] | | | (AA) | | [facility] | | | | | CENTER - | | | | | LABORATORY | + + + + + | Culture | [place] | | [facility] | | | cepaciaComment: For | | [facility] | | | sensitivity results, | | CENTER - | | | refer to virtual recruiter | | LABORATORY | | | culture. | | | + + + + + | Gram Stain Result | Gram negative | | [facility] | | | rodsComment: 2 of 4 | | [facility] | | | bottles positive | | CENTER - | | | | | LABORATORY | + + + + + + + | Specimen | + + | Blood - Peripheral | | Blood | + + + + + | Narrative | Performed At | + + + | Refer to [id number] for susceptibilities | [facility] | | | [facility] | | | [facility] | | | - LABORATORY | + + + + + + + + | Performing | Address | City/[facility]/Zipcode | Phone Number | | Organization | | | | + + + + + | [facility] | [address] | [place], [place] | [phone] | | [facility] | | [address] | | | - LABORATORY | | | | + + + + + | [facility] | [address] | [place], [place] | | | [facility] | | [address] | | | - LABORATORY | | | | + + + + + Urinalysis with Microscopic with Culture if Indicated (04/12/2018 0424) + + + + + | Component | Value | Ref Range | Performed At | + + + + + | COLOR | Sandie (A) | Light Yellow, | [facility] | | | | Yellow, Straw | [facility] | | | | | CENTER - | | | | | LABORATORY | + + + + + | CLARITY | Clear | Clear | [facility] | | | | | [facility] | | | | | CENTER - | | | | | LABORATORY | + + + + + | PH UA | 6.0 | 5.0 - 8.0 | [facility] | | | | | [facility] | | | | | CENTER - | | | | | LABORATORY | + + + + + | Specific [place] | 1.025 | 1.001 - 1.030 | [facility] | | | | | [facility] | | | | | CENTER - | | | | | LABORATORY | + + + + + | PROTEIN UA | 100 mg/dL (A) | Negative | [facility] | | | | | [facility] | | | | | CENTER - | | | | | LABORATORY | + + + + + | BLOOD UA | Moderate (A) | Negative | [facility] | | | | | [facility] | | | | | CENTER - | | | | | LABORATORY | + + + + + | GLUCOSE UA | Negative | Negative | [facility] | | | | | [facility] | | | | | CENTER - | | | | | LABORATORY | + + + + + | KETONES UA | Negative | Negative | [facility] | | | | | [facility] | | | | | [facility] - | | | | | LABORATORY | + + + + + | BILIRUBIN UA | Negative | Negative | [facility] | | | | | [facility] | | | | | [facility] - | | | | | LABORATORY | + + + + + | NITRITE UA | Negative | Negative | [facility] | | | | | [facility] | | | | | CENTER - | | | | | LABORATORY | + + + + + | LEUKOCYTES ESTERASE | Small (A) | Negative | [facility] | | UA | | | [facility] | | | | | CENTER - | | | | | LABORATORY | + + + + + | UROBILINOGEN UA | Negative | 0.2 mg/dL, 1.0 | [facility] | | | | mg/dL, Negative | [facility] | | | | | CENTER - | | | | | LABORATORY | + + + + + | WBC UA | 5-10 (A) | 0 - 2 /HPF | [facility] | | | | | [facility] | | | | | CENTER - | | | | | LABORATORY | + + + + + | RBC UA | 50-100 (A) | 0 - 2 /HPF | [facility] | | | | | [facility] | | | | | C[facility] - | | | | | LABORATORY | + + + + + | SQUAMOUS EPITHELIAL | 0-2 | 0 - 2 /LPF | [facility] | | UA | | | [facility] | | | | | CENTER - | | | | | LABORATORY | + + + + + | BACTERIA UA | Negative | Negative /HPF | [facility] | | | | | [facility] | | | | | C[facility] - | | | | | LABORATORY | + + + + + | MUCUS UA | Present (A) | Negative /LPF | [facility] | | | | | [facility] | | | | | CENTER - | | | | | LABORATORY | + + + + + | URINE COMMENT | Urine Culture Not | | [facility] | | | Indicated | | [facility] | | | | [facility] - | | | | | LABORATORY | + + + + + + + | Specimen | + + | Urine - Urine, | | Unspecified Source | + + + + + + + | Performing | Address | City/State/Zipcode | Phone Number | | Organization | | | | + + + + + | [facility] | [address] | [place], [place] | [phone] | | [facility] | | [address] | | | - LABORATORY | | | | + + + + + | [facility] | [address] | [place], [place] | | | [facility] | | [address] | | | - LABORATORY | | | | + + + + + Sodium, Urine, Random (04/12/2018 0424) + +-------+ + + | Component | Value | Ref Range | Performed At | + +-------+ + + | Sodium, Urine Random | 103 | 27 - 287 mmol/L | [facility] | | | | | [facility] | | | | | CENTER - | | | | | LABORATORY | + +-------+ + + + + | Specimen | + + | Urine - Urine, | | Unspecified Source | + + + + + + + | Performing | Address | City/State/Zipcode | Phone Number | | Organization | | | | + + + + + | [facility] | [address] | [place] | [phone] | | [facility] | | [address] | | | - LABORATORY | | | | + + + + + | [facility] | [address] | [place] | | | [facility] | | [address] | | | - LABORATORY | | | | + + + + + Creatinine, Urine, Random (04/12/2018 0424) + +-------+ + + | Component | Value | Ref Range | Performed At | + +-------+ + + | Creatinine, Urine, | 196 | mg/dL | [facility] | | Random | | | [facility] | | | | | CENTER - | | | | | LABORATORY | + +-------+ + + + + | Specimen | + + | Urine - Urine, | | Unspecified Source | + + + + + | Narrative | Performed At | + + + | The reference range and other method performance specifications have | [facility] | | not been established for this test. These results should be | [facility] | | integrated into the clinical context for interpretation. | [facility] | | | - LABORATORY | + + + + + + + + | Performing | Address | City/State/Zipcode | Phone Number | | Organization | | | | + + + + + | [facility] | [address] | [place] | [phone] | | [facility] | | [address] | | | - LABORATORY | | | | + + + + + | [facility] | [address] | [place] | | | [facility] | | [address] | | | - LABORATORY | | | | + + + + + Procalcitonin (04/12/2018 0421) + + + + + | Component | Value | Ref Range | Performed At | + + + + + | Procalcitonin | 0.84 (H) | <=0.50 ng/mL | [facility] | | | | | [facility] | | | | | C[facility] - | | | | | LABORATORY | + + + + + | Comment | Comment: < 0.50 | | [facility] | | | ng/mL:Procalcitonin | | [facility] | | | levels below 0.50 ng/mL | | CENTER - | | | on the first day of | | LABORATORY | | | admission represents a | | | | | low risk for progression | | | | | to severe sepsis and/or | | | | | septic shock, however | | | | | these do not exclude an | | | | | infection, because | | | | | localized infections | | | | | (without systemic signs) | | | | | may also be associated | | | | | with such low | | | | | levels. > 2.00 | | | | | ng/mL:Procalcitonin | | | | | levels above 2.00 ng/mL | | | | | on the first day of | | | | | admission represents a | | | | | high risk for | | | | | progression to severe | | | | | sepsis and/or septic | | | | | shock. If the | | | | | procalcitonin | | | | | measurement is performed | | | | | shortly after the | | | | | systemic infection | | | | | process has started | | | | | (usually less than 6 | | | | | hours), these values may | | | | | still be low. As | | | | | various non-infectious | | | | | conditions are known to | | | | | induce procalcitonin as | | | | | well, procalcitonin | | | | | levels between 0.50 | | | | | ng/mL and 2.00 ng/mL | | | | | should be reviewed | | | | | carefully to take into | | | | | account the specific | | | | | clinical background and | | | | | condition(s) of the | | | | | individual patient. | | | + + + + + + + | Specimen | + + | Blood | + + + + + + + | Performing | Address | City/State/[facility] | Phone Number | | Organization | | | | + + + + + | [facility] | [address] | [place], [place] | [phone] | | [facility] | | [address] | | | - LABORATORY | | | | + + + + + | [facility] | [address] | [place] | | | [facility] | | [address] | | | - LABORATORY | | | | + + + + + CBC with Differential (04/12/2018 0421) + + + + + | Component | Value | Ref Range | Performed At | + + + + + | WBC | 7.8 | 4.0 - 11.0 K/uL | [facility] | | | | | [facility] | | | | | CENTER - | | | | | LABORATORY | + + + + + | RBC | 3.18 (L) | 3.70 - 5.20 M/uL | [facility] | | | | | [facility] | | | | | CENTER - | | | | | LABORATORY | + + + + + | Hgb | 9.0 (L) | 11.5 - 16.0 g/dL | [facility] | | | | | [facility] | | | | | C[facility] - | | | | | LABORATORY | + + + + + | Hct | 26.9 (L) | 34.0 - 47.0 % | [facility] | | | | | [facility] | | | | | CENTER - | | | | | LABORATORY | + + + + + | MCV | 84.6 | 83.0 - 101.0 fL | [facility] | | | | | [facility] | | | | | C[facility] - | | | | | LABORATORY | + + + + + | MCH | 28.2 | 28.0 - 35.0 pg | [facility] | | | | | [facility] | | | | | CENTER - | | | | | LABORATORY | + + + + + | MCHC | 33.4 | 32.0 - 36.0 g/dL | [facility] | | | | | [facility] | | | | | CENTER - | | | | | LABORATORY | + + + + + | RDW-CV | 16.4 (H) | <15.0 % | [facility] | | | | | [facility] | | | | | CENTER - | | | | | LABORATORY | + + + + + | Platelet Count | 278 | 140 - 440 K/uL | [facility] | | | | | [facility] | | | | | [facility] - | | | | | LABORATORY | + + + + + | MPV | 7.4 | fL | [facility] | | | | | [facility] | | | | | [facility] - | | | | | LABORATORY | + + + + + | % Neutrophils | 81.0 | 45.0 - 82.0 % | [facility] | | | | | [facility] | | | | | C[facility] - | | | | | LABORATORY | + + + + + | % Lymphocytes | 10.4 (L) | 20.0 - 45.0 % | [facility] | | | | | [facility] | | | | | C[facility] - | | | | | LABORATORY | + + + + + | % Monocytes | 7.3 | 4.0 - 12.0 % | [facility] | | | | | [facility] | | | | | C[facility] - | | | | | LABORATORY | + + + + + | % Eosinophils | 0.9 | 0.0 - 5.0 % | [facility] | | | | | [facility] | | | | | [facility] - | | | | | LABORATORY | + + + + + | % Basophils | 0.4 | 0.0 - 1.0 % | [facility] | | | | | [facility] | | | | | [facility] - | | | | | LABORATORY | + + + + + | Absolute Neutrophils | 6.30 | 1.80 - 8.50 K/uL | [facility] | | | | | [facility] | | | | | [facility] - | | | | | LABORATORY | + + + + + | Absolute Lymphocytes | 0.80 | 0.60 - 3.20 K/uL | [facility] | | | | | [facility] | | | | | [facility] - | | | | | LABORATORY | + + + + + | Absolute Monocytes | 0.60 | 0.00 - 1.00 K/uL | [facility] | | | | | [facility] | | | | | [facility] - | | | | | LABORATORY | + + + + + | Absolute Eosinophils | 0.10 | 0.00 - 0.40 K/uL | [facility] | | | | | [facility] | | | | | [facility] - | | | | | LABORATORY | + + + + + | Absolute Basophils | 0.00 | 0.00 - 0.10 K/uL | [facility] | | | | | [facility] | | | | | [facility] - | | | | | LABORATORY | + + + + + + + | Specimen | + + | Blood | + + + + + + + | Performing | Address | City/State/Zipcode | Phone Number | | Organization | | | | + + + + + | [facility] | [address] | [place] | [phone] | | [facility] | | [address] | | | - LABORATORY | | | | + + + + + | [facility] | [address] | [place] | | | [facility] | | [address] | | | - LABORATORY | | | | + + + + + Magnesium (04/12/2018 0421) + +-------+ + + | Component | Value | Ref Range | Performed At | + +-------+ + + | MG | 2.0 | 1.8 - 2.5 mg/dL | [facility] | | | | | [facility] | | | | | C[facility] - | | | | | LABORATORY | + +-------+ + + + + | Specimen | + + | Blood | + + + + + + + | Performing | Address | City/State/Zipcode | Phone Number | | Organization | | | | + + + + + | [facility] | [address] | [place] | [phone] | | [facility] | | [address] | | | - LABORATORY | | | | + + + + + | [facility] | [address] | [place] | | | [facility] | | [address] | | | - LABORATORY | | | | + + + + + Lactic Acid (04/12/2018420) + +-------+ + + | Component | Value | Ref Range | Performed At | + +-------+ + + | LACTATE | 0.9 | 0.5 - 2.2 mmol/L | [facility] | | | | | [facility] | | | | | CENTER - | | | | | LABORATORY | + +-------+ + + + + | Specimen | + + | Blood | + + + + + + + | Performing | Address | City/State/Zipcode | Phone Number | | Organization | | | | + + + + + | [facility] | [address] | [place] | [phone] | | [facility] | | [address] | | | - LABORATORY | | | | + + + + + | [facility] | [address] | [place], [place] | | | [facility] | | [address] | | | - LABORATORY | | | | + + + + + Comprehensive Metabolic Panel (04/12/2018 0421) + + + + + | Component | Value | Ref Range | Performed At | + + + + + | NA | 134 (L) | 136 - 149 mmol/L | [facility] | | | | | [facility] | | | | | [facility] - | | | | | LABORATORY | + + + + + | K | 3.7 | 3.5 - 5.1 mmol/L | [facility] | | | | | [facility] | | | | | CENTER - | | | | | LABORATORY | + + + + + | CL | 97 (L) | 98 - 109 mmol/L | [facility] | | | | | [facility] | | | | | CENTER - | | | | | LABORATORY | + + + + + | CO2 | 29 | 24 - 31 mmol/L | [facility] | | | | | [facility] | | | | | CENTER - | | | | | LABORATORY | + + + + + | ANION GAP | 8 | 3 - 16 mmol/L | [facility] | | | | | [facility] | | | | | CENTER - | | | | | LABORATORY | + + + + + | GLUCOSE | 118 (H) | 70 - 109 mg/dL | [facility] | | | | | [facility] | | | | | CENTER - | | | | | LABORATORY | + + + + + | BUN | 17 | 7 - 18 mg/dL | [facility]. | | | | | [facility] | | | | | CENTER - | | | | | LABORATORY | + + + + + | Creatinine, | 1.92 (H) | 0.60 - 1.30 mg/dL | [facility]. | | Serum/Plasma | | | [facility] | | | | | CENTER - | | | | | LABORATORY | + + + + + | eGFR if not | 28 (L)Comment: | >=60 mL/min/1.73m2 | [facility] | | [place] | GLOMERULAR FILTRATION | | [facility] | | | RATE,ESTIMATED mL/min | | CENTER - | | | /1.62d0Ctrs than 60 | | LABORATORY | | | Chronic kidney | | | | | disease,if found over a | | | | | 3-month period.Less than | | | | | 15 Kidney | | | | | failureFor | | | | | Americans,multiply the | | | | | calculated GFR by 1.21. | | | | | | | | + + + + + | CALCIUM | 8.0 (L) | 8.3 - 10.5 mg/dL | [facility] | | | | | [facility] | | | | | CENTER - | | | | | LABORATORY | + + + + + | ALBUMIN | 2.4 (L) | 3.2 - 5.0 g/dL | [facility] | | | | | [facility] | | | | | CENTER - | | | | | LABORATORY | + + + + + | Bilirubin Total | 0.6 | 0.1 - 1.5 mg/dL | [facility] | | | | | [facility] | | | | | CENTER - | | | | | LABORATORY | + + + + + | Total protein | 6.3 | 6.0 - 7.8 g/dL | [facility] | | | | | [facility] | | | | | CENTER - | | | | | LABORATORY | + + + + + | AST | 24 | 10 - 42 U/L | [facility] | | | | | [facility] | | | | | CENTER - | | | | | LABORATORY | + + + + + | ALT | 16 | 6 - 45 U/L | [facility] | | | | | [facility] | | | | | CENTER - | | | | | LABORATORY | + + + + + | ALK PHOS | 386 (H) | 40 - 110 U/L | [facility] | | | | | [facility] | | | | | CENTER - | | | | | LABORATORY | + + + + + | GLOBULIN | 3.9 (H) | 2.1 - 3.8 g/dL | [facility] | | | | | [facility] | | | | | CENTER - | | | | | LABORATORY | + + + + + | Albumin/Globulin | 0.6 (L) | 0.8 - 2.0 | [facility] | | ratio | | | [facility] | | | | | CENTER - | | | | | LABORATORY | + + + + + | BUN/CREA | 8.9 | | [facility] | | | | | [facility] | | | | | CENTER - | | | | | LABORATORY | + + + + + + + | Specimen | + + | Blood | + + + + + + + | Performing | Address | City/State/Zipcode | Phone Number | | Organization | | | | + + + + + | [facility] | [address] | [place] | [phone] | | [facility] | | [address] | | | - LABORATORY | | | | + + + + + | [facility] | [address] | [place], [place] | | | [facility] | | [address] | | | - LABORATORY | | | | + + + + + IMAGING REPORT - EXTERNAL SCAN (04/11/2018) + + + | Narrative | Performed [...] +--------+ +---------+ | MEDICARE | MEDICA | [id number] | Medica | [phone] | | | | RE | | re | 555 | | | | PART A | | | | | | | AND B | | | | | + +--------+ +--------+ +---------+ | [employer] | MODA | [id number] | Medica | [phone] | | MEDICAID HMO | HEALTH [...] | Self | [birth year] | Home: | [address] | | [place] | al/Shukri | | 1971 | [phone] | [place] [address] | | | nehemiah | | | [address] | | + +--------+ +--------+ + +
--- OUTSIDE RECORDS SUMMARY | ~2018-04-19 | XMS | Encounter Summary ---
Demographics + + + | Address | [address] | | | [place] [address] | + + + | Home Phone | | + + + | Preferred Language | Unknown | + + + | Marital Status | | + + + | Taoist Affiliation | [phone] | + + + | Race | Unknown | + + + | Ethnic Group | Unknown | + + + Author + + + | Author | [facility] | | | and [place] | + + + | Organization | [facility] | | | and [place] [...] [place] | | | | | [address] | | + + + + + | Joey Pino | ECON | [address] | | | | | [place] | | | | | [address] | | + + + + + Care Team Providers + +------+ + | Care Potato Sorter Name | Role | Phone | + [...] + + | 04/14/ | Telephone | [facility] | Ron | [facility] | | 2018 | | [facility] | Jagdeep Oh MD [address] | | | | [facility] [address] | | | | | [address] | [place] [address] | | | | | [place] [address] | [phone] | | | | | [phone] | | | +--------+ + + + [...] | | | | | [place] [address] | | | | | | [phone] | | | | | | | | +--------+---------+ + + + as of this encounter Visit Diagnoses Not on filein this encounter"
--- OUTSIDE RECORDS SUMMARY | ~2018-04-19 | XMS | Encounter Summary ---
Demographics + + + | Address | [address] | | | [place] [address] | + + + | Home Phone [...] | [facility] | | | and [place] | + + + | Organization | [facility] | | | and [place] | + + + | Address | Unknown | + + + | Phone | Unavailable | + + + Support + + + + + | Name | Relationship | Address | Phone | + + + + + | Rocael Pino | ECON | [address] | | | | | [place] | | | | | [address] | | + + + + + | Joey Pino | ECON | [address] | | | | | [place] | | | | | [address] | | + + + + + Care Team Providers + +------+ + | Care Cloth Winder Machine Operator Name | Role | Phone | + +------+ + | Jagdeep Velasquez MD | PCP | Unavailable | + +------+ + Encounter Details +--------+ + + + + | Date | Type | Department | Care Team | Description | +--------+ + + + + | 04/12/ | Hospital | [facility] | Yolanda Fritz MD | Sepsis due to | | 2018 | Encounter | [facility] | [address] | urinary tract | | | | [address] | [facility], [place] | infection (HCC); [facility] | | | | [place] [address] | [id number] | (acute kidney | | | | [phone] | | injury) (HCC); | | | | | | Metastatic colon | | | | | | cancer in female | | | | | | (HCC); Hx of | | | | | | nephrostomy (HCC) | +--------+ + + + + Social [...] + + + as of this encounter Last Filed Vital Signs + + + [...] 04/12/2018452 PDT | + + + + in this encounter Functional Status + + + [...] + + + as of this encounter Discharge Summaries Suki Orosco MD - 04/12/2018 3170 PDTFormatting of this note may be different from the original. [facility] [place] HOSPITALIST DISCHARGE SUMMARY Pt. Name/Age/: Jessica Pino 47 y.o. 1970 Date of Admission: 04/12/2018 Date of Discharge: Left AMA on 04/12/2018 Admitting Physician: Yolanda Fritz MD Primary Care Provider: Jagdeep Velasquez MD Discharging Physician: Suki Orosco MD DISCHARGE DIAGNOSES: Active Hospital Problems Diagnosis Sepsis due to urinary tract infection CRISTIAN (acute kidney injury) Metastatic colon cancer in female Hx of nephrostomy Resolved Hospital Problems Diagnosis No resolved problems to display. DISCHARGE MEDICATIONS: Left AMA HOSPITAL COURSE: Please refer to the H&P for full details and the most recent rounding rounding (progress) n ote. Admission HPI: 47yoF w/ metastatic colon ca (w/ diffuse mets involving lung, liver, bowel/p eritoneal, uretetrs), s/p chemo and colectomy, previous urinary obstruction requiring stent placements, who presented to [place] [facility] with acute on chronic nausea and vomiting. They w ere planning to discharge her from the ER after providing symptom relief and hydration, but then patient spiked a fever to 102F. Her urinalysis is indicative of infection, and she was started on ceftriaxone. A CT was performed to make sure there were no further ureteral obs tructions, and this was unremarkable. The hospitalist at their facility did not feel comfor table with the patient due to her complexity, and patient wanted to come here since her [facility] team is here and she was supposed to be set up with [facility] soon. Pt was started on Rocephin for Sepsis likely 2/2 urinary source. Pt was unhappy with edgar g and wanted to leave AMA because she wanted her pain meds and nausea meds whenever she want s and not as ordered. Pt was on a Fentanyl patch 75 mcg, Oxycontin 40 mg BID, Dilaudid IV 0. 5-1.5 Q 2 hrs prn, Roxicodone 5-20mg Q 3 hr prn, Zofran 4 mg IV Q 4 hr prn and Phenergan 6. 25 mg IV Q 6 hr prn. Pt wanted IV Zofran to be given to her every 1-2 hours. I explained the risk of arrhythmias and other serious side effects to which patient said I take It every 2 hours at home. Pt started using abusive words directed to her nurse and decided to leave AM A. Most recent weight: Input and output for last 24hrs: Wt Readings from Last 1 Encounters: 04/12/18 79.6 kg (175 lb 7.8 oz) I/O last 24 Hours: In: 200 [P.O.:200] Out: 230 [Urine:230] Vitals Ranges: Vitals: Temp: 37.7 C (99.9 F) BP: 100/65 Pulse: 98 Resp: 18 SpO2: 91 % SpO2 91 % on nasal cannula at flow rate 2L/min PHYSICAL EXAM: Left AMA PROCEDURES AND CONSULTS: Procedures none Consults none PENDING RESULTS: none DISPOSITION AND DISCHARGE INSTRUCTIONS: Follow-up Information Jagdeep Velasquez MD . Specialty: Medical Oncology Contact information: [address], [place] [address] [place] [address] Electronically signed by: Suki Orosco MD, 04/14/2018 21:41 [facility] Portions of this chart may have been created with [employer] voice recognition software. Occasi onal wrong-word or sound-alike substitutions may have occurred due to the inherent khalil itations of voice recognition software. Please read the chart carefully and recognize, using context, where these substitutions have occurredin this encounter Medications at Time of Discharge + + + +---------+ + + | Medication | Sig. | Disp. | Refills | Start | End Date | | | | | | Date | | + + + +---------+ + + | ALPRAZolam (XANAX) | Take 1-2 mg by mouth | | | | | | 1 MG tablet | every 8 hours as | | | | | | | needed for Anxiety. | | | | | + + + +---------+ + + | Bisacodyl | Take by mouth as | | | | | | (LAXATIVE PO) | needed. | | | | | + + + +---------+ + + | Cholecalciferol | Take 1 capsule by | | | | | | (VITAMIN D3) 2000 | mouth. Take 1 | | | | | | UNITS CAPS | capsule by mouth | | | | | | | Daily. | | | | | + + + +---------+ + + | ciprofloxacin | Take 500 mg by mouth | | | | | | (CIPRO) 500 mg | 2 times daily. | | | | | | tablet | | | | | | + + + +---------+ + + | clindamycin 1% | APPLY TWICE DAILY | 60 g | 2 | 09/29/19 | | | gelIndications: | NEEDED FOR | | | 18 | | | Malignant neoplasm | CHEMOTHERAPY INDUCED | | | | | | of colon, | ACNE | | | | | | unspecified part of | | | | | | | colon (HCC) | | | | | | + + + +---------+ + + | DULoxetine | Take 30 mg by mouth | | | | | | (CYMBALTA) [address] | Daily. | | | | | | capsule | | | | | | + + + +---------+ + + | ondansetron | Take 8 mg by mouth | | 0 | 03/31/20 | | | (ZOFRAN ODT) 8 mg | every 8 hours as | | | 16 | | | disintegrating | needed. | | | | | | tablet | | | | | | + + + +---------+ + + | oxybutynin | TAKE 1 TABLET BY | 30 | 3 | 03/27/20 | | | (DITROPAN XL) 5 mg | MOUTH DAILY | tablet | | 18 | | | 24 hr tablet | NEEDED FOR BLADDER | | | | | | | SPASM | | | | | + + + +---------+ + + | oxyCODONE | Take 1-2 mLs by | 100 mL | 0 | 12/26/19 | | | (OXYFAST) 20 mg/mL | mouth every 4 hours | | | 18 | | | concentrated liquid | as needed for Pain. | | | | | + + + +---------+ + + | oxyCODONE 20 MG | Take 40 mg by mouth | | | | | | TABS | every 4 hours as | | | | | | | needed for Pain. | | | | | + + + +---------+ + + | PREMARIN 0.9 MG | TAKE 1 TABLET BY | 30 | 0 | 04/01/20 | | | tablet | MOUTH EVERY DAY | tablet | | 18 | | + + + +---------+ + + | promethazine | Place 50 mg rectally | | | | | | (PHENERGAN) 50 mg | every 6 hours as | | | | | | suppository | needed for Nausea. | | | | | + + + +---------+ + + as of this encounter Progress Notes Sierra Willis RN - 04/12/2018 7068 PDTLab called and notified me that pt. has 1/4 bottle s + Blood Culture. Gram - Rods. Notified Dr. Fritz. Advised to call Jessica and have her g o to ER in [place] to f/u for treatment with antibiotic. I called and son answered mobile phone. He stated that he is her caregiver. I relayed the info to him. He said they would go to ER and get treatment. Update: CM received call from Jessica regarding telephone call from RN last night. This CM info rmed Jessica and her mother that labs were drawn while she was here at [facility] and that he r blood culture is positive. This CM recommended that they contact [facility] in [place] and inform them of the positive result and that they go into the ED there for furt her treatment. Jessica and her mother verbalize understanding. Electronically signed by: Sierra Willis RN 04/13/2018 12:04 Update: CM received call from Geraldo at [facility] ED requesting records for patient. CM faxe d H&P, RN note, and Labs to [place] ED ([phone]). Electronically signed by: Sierra Willis RN 04/13/2018 12:34 in this encounter Plan of Treatment +--------+---------+ + + + | Date | Type | Specialty | Care Team | Description | +--------+---------+ + + + | 04/30/ | Office | Urology | Dangelo Sanders, | | | 2017 | Visit | | [address] , | | | | | | [address] | | | | | | [place] [address] | | | | | | [phone] | | | | | | | | +--------+---------+ + + + as of this encounter Procedures + +--------+ + + + | [...] section. | + +--------+ + + + in this encounter Results Blood Culture GN Panel, PCR (04/12/2018 0459) + + + + + | Component | Value | Ref Range | Performed At | + + + + + | Escherichia coli, | Not Detected | Not Detected | [facility] | | DNA | | | [facility] | | | | | CENTER - | | | | | LABORATORY | + + + + + | Pseudomonas | Not Detected | Not Detected | [facility] | | aeruginosa, DNA | | | [facility] | | | | | CENTER - | | | | | LABORATORY | + + + + + | Klebsiella | Not Detected | Not Detected | [facility] | | pneumoniae, DNA | | | [facility] | | | | | CENTER [...] | | resistance gene), | | | [facility] | | DNA | | | [...] | | gene), DNA | | | [facility] | | | | | CENTER [...] + | [facility] | [address] | [place] | [phone] | | [facility] | | [address] | | | - LABORATORY | | | | + + + + + | [facility] | [address] | [place] | | | [facility] | | [address] | | | - LABORATORY | | | | + + + + + Culture, Blood (04/12/2018 0459) + + + + + | Component | Value | Ref Range | Performed At | + + + + + | Culture | Positive Blood Culture | | [facility] | | | (AA) | | [facility] | | | | | CENTER - | | | | | LABORATORY | + + + + + | Culture | Burkholderia | | [facility] | | | cepaciaComment: For | | [facility] | | | sensitivity results, | | CENTER - | | | refer to road hogger operator | | LABORATORY | | | culture. [...] | + + + | Refer to [id number] for susceptibilities | [facility] | | | [facility] | | | [facility] | | | - LABORATORY | + + + + + + + + | Performing | Address | City/State/Zipcode | Phone Number | | Organization | | | | + + + + + | [facility] | [address] | [place] | [phone] | | [facility] | | [address] | | | - LABORATORY | | | | + + + + + | [facility] | [address] | [place], [place] | | | [facility] | | [address] | | | - LABORATORY | | | | + + + + + Blood Culture GN Panel, PCR (04/12/2018 0446) + + + + + | Component | Value | Ref Range | Performed At | + + + + + | Escherichia coli, | Not Detected | Not Detected | [facility] | | DNA | | | [facility] | | | | | CENTER - | | | | | LABORATORY | + + + + + | Pseudomonas | Not Detected | Not Detected | [facility] | | aeruginosa, DNA | | | [facility] | | | | | CENTER - | | | | | LABORATORY | + + + + + | Klebsiella | Not Detected | Not Detected | [facility] | | pneumoniae, DNA | | | [facility] | [...] | | resistance gene), | | | [facility] | | DNA | | | [...] | | species, DNA | | | [facility] | | | | | CENTER - | | | | | LABORATORY | + + + + + | Citrobacter species, | Not Detected | Not Detected | [facility] | | DNA | | | [facility] | | | | | CENTER - | | | | | LABORATORY | + + + + + | OXA (CRE resistance | Not Detected | Not Detected | [facility] | | gene), DNA | | | [facility] | | | | | CENTER [...] conventional methods | [facility] | | | [facility] | | | [facility] | | | - LABORATORY | + + + + + + + + | Performing | Address | City/State/Zipcode | Phone Number | | Organization | | | | + + + + + | [facility] | [address] | [place] | [phone] | | [facility] | | [address] | | | - LABORATORY | | | | + + + + + | [facility] | [address] | [place] | | | [facility] | | [address] | | | - LABORATORY | | | | + + + + + Culture, Blood (04/12/2018 0446) + + + + + | Component | Value | Ref Range | Performed At | + + + + + | Culture | Positive Blood Culture | | [facility] | | | (AA) | | [facility] | | | | | CENTER - | | | | | LABORATORY | + + + + + | Culture | Burkholderia cepacia | | [facility] | | | | | [facility] | | | | | CENTER - | | | | | LABORATORY | + + + + + | Gram Stain Result | Gram negative | | [facility] | | | rodsComment: 2 of 4 | | [facility] | | | bottles. qc ok. 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 | | >=64 ug/mL: | | | | | Resistant | + + +--------+ + | Burkholderia cepacia | Ampicillin + | | >=32 ug/mL: | | | Sulbactam | | Resistant | + + +--------+ + | Burkholderia cepacia | Cefazolin | | >=64 ug/mL: | | | | | Resistant | + + +--------+ + | Burkholderia cepacia | Ceftazidime | | 2 ug/mL: Sensitive | + + +--------+ + | Burkholderia cepacia | Ceftriaxone | | 8 ug/mL: Sensitive | + + +--------+ + | Burkholderia cepacia | Gentamicin | | >=16 ug/mL: | | | | | Resistant | + + +--------+ + | Burkholderia cepacia | Meropenem | | 4 ug/mL: Sensitive | + + +--------+ + | Burkholderia cepacia | Piperacillin + | | >=128 ug/mL: | | | Tazobactam | | Resistant | + + +--------+ + | Burkholderia cepacia | Tobramycin | | >=16 ug/mL: | | | | | Resistant | + + +--------+ + | Burkholderia cepacia | Trimethoprim + | | <=20 ug/mL: | | | Sulfamethoxazole | | Sensitive | + + +--------+ + + + + + + | Performing | Address | City/State/Zipcode | Phone Number | | Organization | | | | + + + + + | [facility] | [address] | [place], [place] | [phone] | | [facility] | | [address] | | | - LABORATORY | | | | + + + + + | [facility] | [address] | [place] | | | [facility] | | [address] | | | - LABORATORY | | | | + + + + + Creatinine, Urine, Random (04/12/2018 0424) + +-------+ + + | Component | Value | Ref Range | Performed At | + +-------+ + + | Creatinine, Urine, | 196 | mg/dL | [facility] | | Random | | | [facility] | | | | | CENTER - | | | | | LABORATORY | + +-------+ + + + + | Specimen | + + | Urine - Urine, | | Unspecified Source | + + + + + | Narrative | Performed At | + + + | The reference range and other method performance specifications have | [facility] | | not been established for this test. These results should be | [facility] | | integrated into the clinical context for interpretation. | [facility] | | | - LABORATORY | + + + + + + + + | Performing | Address | City/State/Zipcode | Phone Number | | Organization | | | | + + + + + | [facility] | [address] | [place], [place] | [phone] | | [facility] | | [address] | | | - LABORATORY | | | | + + + + + | [facility] | [address] | [place], [place] | | | [facility] | | [address] | | | - LABORATORY | | | | + + + + + Sodium, Urine, Random (04/12/2018 0424) + +-------+ + + | Component | Value | Ref Range | Performed At | + +-------+ + + | Sodium, Urine Random | 103 | 27 - 287 mmol/L | [facility] | | | | | [facility] | | | | | [...] + | [facility] | [address] | [place] | [phone] | | [facility] | | [address] | | | - LABORATORY | | | | + + + + + | [facility] | [address] | [place] | | | [facility] | | [address] | | | - LABORATORY | | | | + + + + + Urinalysis with Microscopic with Culture if Indicated (04/12/2018 0424) + + + + + | Component | Value | Ref Range | Performed At | + + + + + | COLOR | Sandie (A) | Light Yellow, | [facility] | | | | Yellow, Straw | [facility] | | | | | [...] + + + + + | Specific Sterling | 1.025 | 1.001 - 1.030 | [...] COMMENT | Urine Culture Not | | [facility] | | | Indicated | | [facility] | | | | | [...] + + | [facility] | [address] | [place] | [phone] | | [facility] | | [address] | | | - LABORATORY | | | | + + + + + | [facility] | [address] | [place] | | | [facility] | | [address] | | | - LABORATORY | | | | + + + + + Procalcitonin (04/12/2018 042) + + + + + | Component | Value | Ref Range | Performed At | + + + + + | Procalcitonin | 0.84 (H) | <=0.50 ng/mL | [facility] | | | | | [facility] | | | | | CENTER - | | | | | LABORATORY | + + + + + | Comment | Comment: < 0.50 | | [facility] | | | ng/mL:Procalcitonin | | [facility] | | | levels below 0.50 ng/mL [...] + | [facility] | [address] | [place] | [phone] | | [facility] | | [address] | | | - LABORATORY | | | | + + + + + | [facility] | [address] | [place] | | | [facility] | | [address] | | | - LABORATORY | | | | + + + + + Lactic Acid (04/12/2018 0421) + +-------+ + + | Component | Value | Ref Range | Performed At | + +-------+ + + | LACTATE | 0.9 | 0.5 - 2.2 mmol/L | [facility] | | | | | [facility] | | | | | [...] + | [facility] | [address] | [place] | [phone] | | [facility] | | [address] | | | - LABORATORY | | | | + + + + + | [facility] | [address] | [place] | | | [facility] | | [address] | | | - LABORATORY | | | | + + + + + Magnesium (04/12/2018420) + +-------+ + + | Component | Value | Ref Range | Performed At | + +-------+ + + | MG | 2.0 | 1.8 - 2.5 mg/dL | [facility] | | | | | [facility] | | | | | [...] + | [facility] | [address] | [place] | [phone] | | [facility] | | [address] | | | - LABORATORY | | | | + + + + + | [facility] | [address] | [place] | | | [facility] | | [address] | | | - LABORATORY | | [...] 17 | 7 - 18 mg/dL | [facility] | | | | | [facility] | | | | | CENTER - | | | | | LABORATORY | + + + + + | Creatinine, | 1.92 (H) | 0.60 - 1.30 mg/dL | [facility] | | Serum/Plasma | | | [facility] | | | | | CENTER - | | | | | LABORATORY | + + + + + | eGFR if not | 28 (L)Comment: | >=60 mL/min/1.73m2 | [facility] | | TONGAN | GLOMERULAR FILTRATION | | [facility] | | | RATE,ESTIMATED mL/min | | CENTER - | | | /1.56m6Zzuk than 60 | | LABORATORY | | [...] (L) | 8.3 - 10.5 mg/dL | [facility]. | | | | | [facility] | | | | | [...] + | [facility] | 8.9 | | [facility] | | | | | [facility] | | | | | [...] [address] | [place] | [phone] | | [facility] | | [address] | | | - LABORATORY | | | | + + + + + | [facility] | [address] | [place] | | | [facility] | | [address] | | | - LABORATORY | | | | + + + + + CBC with Differential (04/12/2018 0421) + + + + + | Component | Value | Ref Range | Performed At | + + + + + | WBC | 7.8 | 4.0 - 11.0 K/uL | [facility] | | | | | [facility] | | | | | [...] [facility] | | | | | [facility] | | | | | [...] [address] | [place] | [phone] | | [facility] | | [address] | | | - LABORATORY | | | | + + + + + | [facility] | [address] | [place] | | | [facility] | | [address] | | | - LABORATORY | | | | + + + + + IMAGING REPORT - EXTERNAL SCAN (04/11/2018) + + + | Narrative | Performed At | + + + | Ordered by an | | | unspecified provider. | | + + + in this encounter Visit Diagnoses + + | Diagnosis | + + | Sepsis due to urinary tract infection (HCC) | + + | Unspecified septicemia | + + | CRISTIAN (acute kidney injury) ([facility]) | + + | Acute kidney failure, unspecified | + + | Metastatic colon cancer in female (HCC) | + + | Hx of nephrostomy (HCC) | + + | Personal history of unspecified urinary disorder | + + Admitting Diagnoses + + | Diagnosis | + + | Sepsis due to urinary tract infection (HCC) - urosepsis | + + | Unspecified septicemia | + + Administered Medications + +--------+ +--------+------+------+ | Medication Order | MAR | Action | Dose | Rate | Site | | | Action | Date | | | | + +--------+ +--------+------+------+ | acetaminophen (TYLENOL) tablet | Given | 04/12/2018 | 650 mg | | | | 650 mg 650 mg, Oral, EVERY 4 | | 4:01 | | | | | HOURS PRN, Pain, or fever >= 38.6 | | PDT | | | | | C (101.5 F), Starting 04/12/18 | | | | | | | at 0322 | | | | | | + +--------+ +--------+------+------+ +-------+ +--------+---+---+ | Given | 04/12/2018 | 650 mg | | | | | 8:44 | | | | | | PDT | | | | +-------+ +--------+---+---+ +---+---+ | | | +---+---+ + +-------+ +--------+---+---+ | aluminum & magnesium | Given | 04/12/2018 | 30 mLs | | | | hydroxide-simethicone (MAALOX | | 4:32 | | | | | PLUS REGULAR STRENGTH) 200-200-20 | | PDT | | | | | mg/5 mL suspension 30 mL 30 mL, | | | | | | | Oral, EVERY 4 HOURS PRN, | | | | | | | Indigestion, Starting 04/12/18 | | | | | | | at 0322, Shake well. | | | | | | + +-------+ +--------+---+---+ +---+---+ | | | +---+---+ + +---------+ +---------+---+ + | fentaNYL (DURAGESIC) 75 mcg/hr | Patch | 04/12/2018 | 1 patch | | Back-Rig | | 1 patch 1 patch, Transdermal, | Applied | 10:30 | | | ht Upper | | EVERY 72 HOURS, First dose on Sun | | PDT | | | | | 04/12/18 at 0800, Hold for | | | | | | | sedation, rr<10; remove previous | | | | | | | patch before applying. | | | | | | + +---------+ +---------+---+ + +---+---+ | | | +---+---+ + +-------+ +-------+---+---+ | heparin 100 units/mL flush | Given | 04/12/2018 | 500 | | | | injection 500 Units 500 Units (5 | | 12:45 | Units | | | | mL), Intracatheter, ONCE, Sun | | PDT | | | | | 04/12/18 at 1300, For 1 dose | | | | | | + +-------+ +-------+---+---+ +---+---+ | | | +---+---+ + +-------+ +--------+---+---+ | HYDROmorphone (DILAUDID) | Given | 04/12/2018 | 0.5 mg | | | | injection 0.5-1.5 mg 0.5-1.5 mg, | | 4:02 | | | | | Intravenous, EVERY 2 HOURS PRN, | | PDT | | | | | Pain, hold for sedation, rr<10, | | | | | | | Starting 04/12/18 at 0341, Use | | | | | | | IV morphine first if ordered. | | | | | | | Slow IV push, not faster than | | | | | | | 0.25 mg/minute. If ineffective or | | | | | | | not tolerated and unable to take | | | | | | | oral opioid - contact MD. | | | | | | + +-------+ +--------+---+---+ +-------+ +------+---+---+ | Given | 04/12/2018 | 1 mg | | | | | 5:22 | | | | | | PDT | | | | +-------+ +------+---+---+ | Given | 04/12/2018 | 1 mg | | | | | 8:57 | | | | | | PDT | | | | +-------+ +------+---+---+ +---+---+ | | | +---+---+ + +-------+ +--------+---+---+ | LORazepam (ATIVAN) tablet 0.5-1 | Given | 04/12/2018 | 0.5 mg | | | | mg 0.5-1 mg, Oral, EVERY 6 | | 4:32 | | | | | HOURS PRN, Anxiety, hold for | | PDT | | | | | sedation, rr<10, Starting Sun | | | | | | | 04/12/18 at 0344 | | | | | | + +-------+ +--------+---+---+ + +---+ | | | + +---+ | meropenem (MERREM) 500 mg in | | | sodium chloride 0.9% 50 mL IVPB | | | 500 mg, Intravenous, Administer | | | over 60 Minutes, EVERY 8 HOURS (3 | | | times per day), First dose on | | | 04/12/18 at 1400, Activate | | | system and mix before use. | | + +---+ | | | + +---+ + +-------+ +------+---+---+ | ondansetron (ZOFRAN) injection | Given | 04/12/2018 | 4 mg | | | | 4 mg 4 mg, Intravenous, EVERY 6 | | 4:02 | | | | | HOURS PRN, Nausea, Vomiting, | | PDT | | | | | Starting 04/12/18 at 0322, | | | | | | | First line agent | | | | | | + +-------+ +------+---+---+ +-------+ +------+---+---+ | Given | 04/12/2018 | 4 mg | | | | | 10:14 | | | | | | PDT | | | | +-------+ +------+---+---+ + +---+ | | | + +---+ | ondansetron (ZOFRAN) injection | | | 4 mg 4 mg, Intravenous, EVERY 4 | | | HOURS PRN, Nausea, Vomiting, | | | Starting 04/12/18 at 1215, | | | First line agent | | + +---+ | | | + +---+ + +-------+ +-------+---+---+ | oxyCODONE (oxyCONTIN) ER | Given | 04/12/2018 | 40 mg | | | | abuse-deterrent tablet 40 mg 40 | | 10:30 | | | | | mg, Oral, EVERY 12 HOURS (2 times | | PDT | | | | | per day), First dose on Sun | | | | | | | 04/12/18 at 0900, Hold for | | | | | | | sedation, rr<10. Do not cut or | | | | | | | crush. | | | | | | + +-------+ +-------+---+---+ + +---+ | | | + +---+ | oxyCODONE (ROXICODONE) 1 mg/mL | | | liquid 5-20 mg 5-20 mg, Oral, | | | EVERY 3 HOURS PRN, hold for | | | sedation, rr<10, Starting Sun | | | 04/12/18 at 1142 | | + +---+ | | | + +---+ | promethazine (PHENERGAN) (IV | | | ONLY) injection 6.25 mg 6.25 mg, | | | Intravenous, EVERY 6 HOURS PRN, | | | Nausea, Vomiting, If Zofran is | | | not working, Starting 04/12/18 | | | at 1206, Vesicant. When ordered | | | IV push: Dilute to 10-20mL with | | | NS. Give over 2-3 minutes into | | | large vein. Do not give in | | | hand/wrist or foot/ankle vein. | | | Max dose 12.5mg if giving | | | peripherally. | | + +---+ | | | + +---+ + +---------+ +---+-------+---+ | sodium chloride 0.9% (NS) | New Bag | 04/12/2018 | | 100 | | | infusion at 100 mL/hr, | | 4:10 | | mL/hr | | | Intravenous, CONTINUOUS, Starting | | PDT | | | | | 04/12/18 at 0345 | | | | | | + +---------+ +---+-------+---+ + +---+ | | | + +---+ | zolpidem (AMBIEN) tablet 5 mg | | | 5 mg, Oral, NIGHTLY PRN, | | | Insomnia, Starting 04/12/18 at | | | 0345 | | + +---+ | | | + +---+ in this encounter
--- OUTSIDE RECORDS SUMMARY | ~2018-04-19 | XMS | Clinical Summary ---
Demographics + + + | Address | [address] | | | [place] [address] | + + + | Home Phone | | + + + | Preferred Language | Unknown | + + + | Marital Status | | + + + | Christian Affiliation | Unknown | + + + | Race | White | + + + | Ethnic Group | Not or | + + + Author + + + | Author | [facility] | + + + | Organization | [facility] | + + [...] [place] | | | | | [address] | | + + + + + Care Team Providers + +------+ + | Care Sales And Marketing Associate Name | Role | Phone | + +------+ + | Denny Noe DO | PP | Unavailable | + +------+ + Source Comments VALENTINO is fully live on both EpicCare Ambulatory and EpicCare InPatient.[facility] Allergies + + + + [...] | | | + +--------+ +--------+-------+---------+ | MARKET RESEARCHER MEDICAID | MARKET RESEARCHER | xxxxxxxx | Medica | | | [...] RADHA | al/Shukri | | 1971 | [phone] | [place] [address] | | | nehemiah | | | [phone] | | + +--------+ +--------+ + +
--- OUTSIDE RECORDS SUMMARY | ~2018-04-19 | XMS | Encounter Summary ---
Demographics + + + | Address | [address] | | | [place] [address] | + + + | Home Phone | | + + + | Preferred Language | Unknown | + + + | Marital Status | | + + + | Jainism Affiliation | 1041 | + + + | Race | Unknown | + + + | Ethnic Group | Unknown | + + + Author + + + | Author | [facility] | | | and Piotrana | + + + | Organization | [facility] | | | and [...] [place] | | | | | [address] | | + + + + + | Joey Pino | ECON | [address] | | | | | [place] | | | | | [address] | | + + + + + Care Team Providers + +------+ + | Care Waitstaff Captain Name | Role | Phone | + [...] + + | 02/23/ | Telephone | [facility] | Dangelo Sanders, | Appointment | | 2018 | | [address] | MD [address], | | | | | [address] [place] | [address] [place] | | | | | [place] [address] | [place] [address] | | | | | [phone] | [phone] | | | | | | | [...] | | | | | [place] [address] | | | | | | [phone] | | | | | | | | +--------+---------+ + + + as of this encounter Visit Diagnoses Not on filein this encounter"
--- OUTSIDE RECORDS SUMMARY | ~2018-04-19 | XMS | Encounter Summary ---
Demographics + + + | Address | [address] | | | [place] [address] | + + + | Home Phone | | + + + | Preferred Language | Unknown | + + + | Marital Status | | + + + | Islam Affiliation | 1041 | + + + | Race | Unknown | + + + | Ethnic Group | Unknown | + + + Author + + + | Author | [facility] | | | and Piot[place] | + + + | Organization | [facility] | | | and [...] [place] | | | | | [address] | | + + + + + | Joey Pino | ECON | [address] | | | | | [place] | | | | | [address] | | + + + + + Care Team Providers + +------+ + | Care Promotions Associate Name | Role | Phone | [...] | +--------+ + + + + | 03/19/ | Telephone | [facility] | Ron | [facility] | | 2018 | | [facility] | Jagdeep Oh MD [address] | | | | [facility] [address] [place] | | | | | [address] [place] | [place] [address] | | | | | [place] [address] | [phone] | | | | | [phone] | | | +--------+ + + + [...] | | | | | [place] [address] | | | | | | [phone] | | | | | | | | +--------+---------+ + + + as of this encounter Visit Diagnoses Not on filein this encounter"
--- OUTSIDE RECORDS SUMMARY | ~2018-04-19 | XMS | Encounter Summary ---
Demographics + + + | Address | [address] | | | [place] [address] | + + + | Home Phone | | + + + | Preferred Language | Unknown | + + + | Marital Status | | + + + | Muslim Affiliation | 1041 | + + + | Race | Unknown | + + + | Ethnic Group | Unknown | + + + Author + + + | Author | [facility] | | | and Piotrana | + + + | Organization | [facility] | | | and [...] [place] | | | | | [address] | | + + + + + | Joey Pino | ECON | [address] | | | | | [place] | | | | | [address] | | + + + + + Care Team Providers + +------+ + | Care Legal Records Manager Name | Role | Phone | + +------+ + | Jagdeep Velasquez MD | PCP | Unavailable | + +------+ + Reason for Visit +--------+ + | Reason | Comments | +--------+ + | Other | Re: appt tomorrow | +--------+ + Encounter Details +--------+ + + + + | Date | Type | Department | Care Team | Description | +--------+ + + + + | 03/30/ | Telephone | [facility] | Dangelo Sanders, | Other (Re: appt | | 2017 | | [address] | [address], | tomorrow) | | | | [address] [place] | [address] [place] | | | | | [place] [address] | [place] [address] | | | | | [phone] | [phone] | | | | | | | [...] | Visit | | [address], | | | | | | [place] | | | | | | [place] [address] | | | | | | [phone] | | | | | | | | +--------+---------+ + + + as of this encounter Visit Diagnoses Not on filein this encounter"
--- OUTSIDE RECORDS SUMMARY | ~2018-04-19 | XMS | Encounter Summary ---
Demographics + + + | Address | [address] | | | [place] [address] | + + + | Home Phone | | + + + | Preferred Language | Unknown | + + + | Marital Status | | + + + | Alevism Affiliation | 1041 | + + + | Race | Unknown | + + + | Ethnic Group | Unknown | + + + Author + + + | Author | [facility] | | | and Piotrana | + + + | Organization | [facility] | | | and [...] [place] | | | | | [address] | | + + + + + | Joey Pino | ECON | [address] | | | | | [place] | | | | | [address] | | + + + + + Care Team Providers + +------+ + | Care Fertilizer Loader Name | Role | Phone | + +------+ + | Jagdeep Velasquez MD | PCP | Unavailable | + +------+ + Reason for Visit +--------+ + | Reason | Comments | +--------+ + | Other | PEG tube plugged | +--------+ + Encounter Details +--------+ + + + + | Date | Type | Department | Care Team | Description | +--------+ + + + + | 03/18/ | Telephone | [facility] | Dangelo Sanders, | Other (PEG tube | | 2017 | | [address] | MD [address], | plugged) | | | | [address] [place] | [address] [place] | | | | | [place] [address] | [place] [address] | | | | | [phone] | [phone] | | | | | | | [...] | | | | | | [address] [place] | | | | | | [place] [address] | | | | | | [phone] | | | | | | | | +--------+---------+ + + + as of this encounter Visit Diagnoses Not on filein this encounter"
[~2018-04-19 17:00] MED LIST changes: +CEFPODOXIME PR200 MG PO; +CIPRO250 MG PO; +DURAGESIC1 EAC1 TD; +FENTANYL1 EACH TD; +POTASSIUM CHLO20 ME1 PO
--- OUTSIDE RECORDS SUMMARY | 2018-04-19 17:04 | XMS ---
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 Care History Medical/Surgical 03/27/2018 [facility] Care Recommendation: - USE EXTREME CAUTION IN GIVING NARCOTICS TO THIS PATIENT. - Avoid Discharge Narcotic prescriptions if at all possible. Please use clinical judgement. - Patient has long history of methamphetamine usage. Please be aware when prescribing discharge medications. 12/08/2017 [facility] - Patient was discharged from hospice due to not following pain contract with Dr Epstein . - Patient is not in a declining state so does not qualify at this time to continue with hospice services per egg gatherer. - If patient needs further pain management please direct patient to PCP. E.D. VISIT COUNT (12 MO.) [address] Jyoti Martinez 13 JEFF Koenig TOTAL 14 NOTE: Visits indicate total known visits. ED/UCC VISIT TRACKING (12 MO.) 04/19/2018 17:00 JE[facility] Gibbons [place] TYPE: Emergency COMPLAINT: - VOMITING 04/13/2018 15:27 [facility] [place] TYPE: Emergency COMPLAINT: - ABNORMAL LABS DIAGNOSES: - Allergy status to sulfonamides status - Bacteremia - Allergy status to narcotic agent status - Allergy status to penicillin - Allergy status to other drugs, medicaments and biological substances status - Other informatics specialist (current) drug therapy 04/11/2018 14:02 [facility] Gibbons [place] TYPE: Emergency COMPLAINT: - VOMITTING/SOB DIAGNOSES: - Hypomagnesemia - Allergy status to sulfonamides status - Allergy status to penicillin - Malignant neoplasm of colon, unspecified - Secondary malignant neoplasm of right lung - Allergy status to other drugs, medicaments and biological substances status - Dehydration - Allergy status to narcotic agent status - Secondary malignant neoplasm of left lung - Hypokalemia - Secondary malignant neoplasm of liver and intrahepatic bile duct - Nausea with vomiting, unspecified 03/27/2018 07:53 [facility] Gibbons [place] TYPE: Emergency COMPLAINT: - VOMITING DIAGNOSES: - Allergy status to narcotic agent status - Sepsis, unspecified organism - Allergy status to sulfonamides status - Urinary tract infection, site not specified - Malignant neoplasm of unspecified ovary - Allergy status to other drugs, medicaments and biological substances status - Vomiting, unspecified - Pneumonia, unspecified organism - Other half-way (current) drug therapy - Allergy status to penicillin - Chronic kidney disease, unspecified 03/14/2018 13:43 [facility] Gib[facility] [place] TYPE: Emergency COMPLAINT: - PAINFUL URINATION DIAGNOSES: - Allergy status to penicillin - Other half-way (current) drug therapy - Allergy status to sulfonamides status - Dysuria - Major depressive disorder, single episode, unspecified - Urinary tract infection, site not specified - Allergy status to other drugs, medicaments and biological substances status - Allergy status to other antibiotic agents status - Allergy status to narcotic agent status 02/22/2018 18:11 [facility] [place] TYPE: Emergency COMPLAINT: - ABD PAIN/ BLOOD IN URINE 01/05/2018 00:24 JE[facility] Gibbons [place] TYPE: Emergency COMPLAINT: - VOMITING DIAGNOSES: - Unspecified abdominal pain - Allergy status to narcotic agent status - Unspecified intestinal obstruction, unspecified as to partial versus complete obstruction - Allergy status to other drugs, medicaments and biological substances status - Other informatics specialist (current) drug therapy - Allergy status to penicillin - Allergy status to sulfonamides status - UNSP INTESTNL OBST, UNSP TO PARTIAL VERSUS COMP - Malignant neoplasm of colon, unspecified 12/23/2017 14:15 JEFF Powell TYPE: Emergency COMPLAINT: - VOMITING BLOOD TISSUE 12/08/2017 08:05 JEFF Powell TYPE: Emergency COMPLAINT: - CHEST PAIN/VOMITING/COUGH DIAGNOSES: - Allergy status to other drugs, medicaments and biological substances status - Other half-way (current) drug therapy - Allergy status to sulfonamides status - Urinary tract infection, site not specified - Bacteriuria - Secondary malignant neoplasm of unspecified ovary - Malignant neoplasm of colon, unspecified - BACTERIURIA - Other chronic pain - Allergy status to narcotic agent status - Cough - Allergy status to penicillin - Other chest pain - Major depressive disorder, single episode, unspecified [facility] DIAGNOSES: - Abdominal Pain - Unspecified abdominal pain - V/cancer pt - Secondary malignant neoplasm of retroperitoneum and peritoneum - Dehydration 08/24/2017 20:38 JEFF Gibbons [place] TYPE: Emergency COMPLAINT: - POST OP PROBLEM DIAGNOSES: - Procedure and treatment not carried out due to patient leaving prior to being seen by health care provider 07/24/2017 17:53 JE[facility] Gibbons [place] TYPE: Emergency COMPLAINT: - NAUSEA/VOMITING DIAGNOSES: - Nausea - Presence of urogenital implants - Major depressive disorder, single episode, unspecified - Other informatics specialist (current) drug therapy - Malignant neoplasm of colon, unspecified - Allergy status to sulfonamides status - Secondary malignant neoplasm of unspecified ovary - Colostomy status - Nausea with vomiting, unspecified - Allergy status to narcotic agent status - Allergy status to other drugs, medicaments and biological substances status - Unspecified abdominal pain - Allergy status to penicillin - Ileostomy status - Other chronic pain - Acquired absence of both cervix and uterus - Acquired absence of other specified parts of digestive tract 07/22/2017 14:41 [facility]bons [place] TYPE: Emergency COMPLAINT: - VOMITING/POSS DEHYDRATION DIAGNOSES: - Urinary tract infection, site not specified - Personal history of other malignant neoplasm of large intestine - Dehydration - Vomiting, unspecified - Personal history of malignant neoplasm of ovary - Personal history of malignant neoplasm of bone 05/16/2017 12:10 [facility] Gibbons [place] TYPE: Emergency COMPLAINT: - CHEST PAIN/BREATHING PROBLEMS INPATIENT VISIT TRACKING (12 MO.) 04/12/2018 03:16 [facility] Yulia VERA TYPE: Medical Surgical DIAGNOSES: - Urinary tract infection, site not specified - Other artificial openings of urinary tract status - Sepsis, unspecified organism - Secondary malignant neoplasm of large intestine and rectum - Acute kidney failure, unspecified [facility]2018 [facility] DIAGNOSES: - Malignant neoplasm of colon, unspecified - Anemia, unspecified - Acute kidney failure, unspecified - Tubulo-interstitial nephritis, not specified as acute or chronic - Unspecified hydronephrosis - urosepsis - Secondary malignant neoplasm of large intestine and rectum - Opioid use, unspecified, uncomplicated - Crossing vessel and stricture of ureter without hydronephrosis 10/28/2017 14:49 [facility] Michelle VERA TYPE: Medical Surgical DIAGNOSES: - Unspecified abdominal pain - Dehydration - Secondary malignant neoplasm of retroperitoneum and peritoneum [email or web address]
[2018-04-19] MEDS ORDERED: DURAGESIC1 EAC2 TD (17:55)
[2018-04-19] MEDS ORDERED: ZOFRAN ODT4 MG PO (20:19)
== END 2018-04-19 20:51 | disposition home or self-care (01) ==
LOC: ED 17:00
DX: R11.10 Vomiting, unspecified (principal); C18.9 Malignant neoplasm of colon, unspecified; Z88.2 Allergy status to sulfonamides; Z88.8 Allergy status to other drugs, medicaments and biological substances; Z88.0 Allergy status to penicillin; Z88.5 Allergy status to narcotic agent; Z79.899 Other long term (current) drug therapy
CPT/HCPCS: 80053; 85025; 96361; 96374; 96375; 99284; J1170; J2405; J7030